=== PATIENT | male | born 1940 | race Caucasian/White ===

== ENCOUNTER 2016-07-25 20:15 | Inpatient (IN) ==
[2016-07-25] MEDS ORDERED: ONDANSETRON 4 MG/2 ML VIAL IV STA (21:35)
[2016-07-25] MEDS ORDERED: SODIUM CHLORIDE 0.9% 500 ML IV STA (21:35)
[2016-07-25] MEDS ORDERED: MORPHINE 2 MG/1 ML SYRINGE IV STA (21:35)
[2016-07-25 21:56] LABS: Basophils % 0.1 % (0.0-0.8); Eosinophils # 0.1 10*3/uL (0.0-0.87); Eosinophils % 0.7 % (0.00-10.9); Hematocrit 25.8 VOL% (42.0-52.0); Hemoglobin 8.4 GM/DL (14.0-18.0); Immature Granulocytes % 0.5 %; Immature Granulocytes Absolute 0.04 #; Lymphocytes # 0.7 10*3/uL (1.4-4.0); Lymphocytes % 9.8 % (21.2-54.2); Mean Corpuscular HGB Conc 32.6 GM/DL (32-36); Mean Corpuscular Hemoglobin 30 PG (27-34); Mean Corpuscular Volume 91.2 FL (87-102); Mean Platelet Volume 9.4 FL (9.6-12.0); Monocytes # 0.8 10*3/uL (0.11-0.8); Monocytes % 11.1 % (1.7-12.7); Neutrophils # 5.7 10*3/uL (1.4-7.4); Neutrophils % 77.8 % (38.7-73.9); Platelet Count 234 T/CUMM (130-400); Red Blood Count 2.83 MC/CUMM (3.8-5.5); Red Cell Distribution Width 13.8 % (9.3-17.3); White Blood Count 7.3 T/CUMM (4-12)
--- NOTE | 2016-07-25 22:00 | Emergency Department Note ---
Vern Salas Brittany, am scribing for, and in the presence of, Eladio Richardson MD 21:42. Dylan Salas Robert M, MD, personally performed the services described in this documentation, ascribed by Tressa Porras in my presence, and it is both accurate and complete . Arrival - Arrival Chief Complaint: Urogenital - Male Stated Complaint: passing blot cots in urine/fell on thursday/ ED Nursing Triage Note: Pt to triage via wheelchair with c/o passing blood colts around noon today. Pt states he had urogential surgery yesterday with Dr. Herrera and had a stent placed. Painful urination, and nausea. Mode of Arrival: Wheelchair Limitations: No Limitations Source: Patient, Significant other, RN Notes Reviewed Time Seen by Provider: 07/25/16 21:34 - History of Present Illness HPI Narrative: Patient is a 75 y/o white male presenting to the ED accompanied by his with c/o hematuria with an onset of noon today. Patient reports that he recent had a right renal stent placement per Dr. Herrera and was discharged yesterday. Since noon today he states he has been having some oliguria, but upon being able to have some urine output he passes large blood clots. Patient notes that he did have a fall last night and is concerned he may have dislodged the stent. Patient reports that he had stent placement secondary to mass occluding passage of urine from the right kidney. reports that he has had a sphincter placement as well and states this has not been working properly either. She notes that he can have hardwick catheter placement, he will just have to deactivate the sphincter first. Patient has no other complaint/pain. Allergies/Adverse Reactions: Allergies Allergy/AdvReac Type Severity Reaction Status Date / Time Penicillins Allergy Unknown Unknown/Unable Verified 07/22/16 12:04 to obtain Tetanus Vaccines and Toxoid Allergy Unknown Unknown/Unable Verified 07/22/16 12: 04 [Tetanus Vaccines & Toxoid] to obtain Home Medications: Home Medications Medication Instructions Recorded Confirmed Type Aspirin [Ecotrin] 81 mg PO QAM 12/28/14 07/25/16 History Glimepiride 4 mg PO BID W/MEALS 12/28/14 07/25/16 History Leuprolide IM (4 Month) [Lupron 30 mg IM ONCE 12/28/14 07/25/16 History Depot (4 Month)] Megestrol Acetate 20 mg PO DAILY 12/28/14 07/25/16 History Omeprazole 20 mg PO DAILY PRN 12/28/14 07/25/16 History Pioglitazone [Actos] 15 mg PO DAILY 12/28/14 07/25/16 History Topiramate 100 mg PO BID 12/28/14 07/25/16 History metFORMIN [Glucophage] 1,000 mg PO BID W/MEALS 12/28/14 07/25/16 History Cyclobenzaprine [Flexeril] 10 mg PO TID #14 tablet 01/29/16 07/25/16 Rx Diphenoxylate/Atrop 2.5-0.025 1 tablet PO Q6H PRN 01/29/16 07/25/16 History [Lomotil Tab] Enzalutamide [Xtandi] 160 mg PO DAILY 01/29/16 07/25/16 History Multivitamin [Multivitamins] 1 each PO DAILY 01/29/16 07/25/16 History Solifenacin [Vesicare] 5 mg PO DAILY 01/29/16 07/25/16 History Calcium Carbonate [Calcium] 1 tablet PO DAILY 07/22/16 07/25/16 History HYDROcodone/ACETAMIN 7.5-325 1 tablet PO Q6H PRN 07/22/16 07/25/16 History [Gravity 7.5-325] [place]-3 Fatty Acids [Fish Oil] 1 tablet PO DAILY 07/22/16 07/25/16 History Review of System - Review of System 12 point system: reviewed and no additional remarkable complaints except as stated - Review of System Respiratory: Absent: respiratory distress Cardiovascular: Absent: chest pain Gastrointestinal: Absent: abdominal pain, nausea, vomiting, diarrhea, constipation Genitourinary male: Present: as per HPI, hematuria Musculoskeletal: Absent: arm pain, back pain, leg pain, neck pain Skin: Absent: rash Medical,Surgical,& Family Hx - Medical History Psychological: History of: Depression Neurology: History of: Migraine (OCCASIONALLY) No history of: Seizures HEENT: History of: Ear Problem (NUSRAT HEARING AIDS), Eye Problem (GLASSES) Respiratory: No history of: Respiratory Problems (FLU VAC-NO;PNEU VAC- YES. 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 DR LOWERY. 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 NUSRAT CARPAL TUNNEL), Spinal Surgery (NECK SURGERY 2002) - Social History Smoking Status: Never smoker Frequency of Alcohol Use: None Type of Drug Use: None Exam Vital Signs: Vital Signs Temperature 97.6 F 07/25/16 21:29 Pulse Rate 81 07/25/16 21:29 Respiratory Rate 18 07/25/16 21:29 Blood Pressure 110/50 07/25/16 21:29 O2 Sat by Pulse Oximetry 98 07/25/16 20:26 - General General appearance: alert, in no apparent distress - Head Head exam: Present: atraumatic, normocephalic, normal inspection - Eye Eye exam: Present: normal appearance, PERRL, EOMI - ENT ENT exam: Present: normal exam, normal oropharynx - Neck Neck exam: Present: normal inspection, full ROM, trachea midline - Chest Chest inspection: Present: normal inspection, symmetric chest wall rise - Respiratory Respiratory exam: Present: normal lung sounds bilaterally. Absent: rales, rhonchi, wheezes - Cardiovascular Cardiovascular exam: Present: regular rate, normal rhythm, normal heart sounds. Absent: murmur, rubs, gallop - Abdominal Exam Abdominal exam: Present: soft, normal bowel sounds. Absent: distention, tenderness - Extremities Exam Extremities exam: Present: normal inspection - Back Exam Back exam: Present: normal inspection (right CVA puncture is clean ) - Neurological Exam Neurological exam: Present: alert, oriented X3, CN II-XII intact. Absent: motor sensory deficit - Psychiatric Psychiatric exam: Present: normal affect, normal mood - Skin Skin exam: Present: warm, dry, intact, pallor. Absent: normal color Course - Reevaluation(s) Reevaluation #1: Manually deactivate the patient's urethral polyp so that we could place a Hardwick. The Hardwick past through the pump with little to no resistance. Bloody urine was returned. Clots were noted in the catheter. Time: 22:20 - Consultations Consultation #1: The hospitalist has been paged. Time: 23:22 Results - Labs CBC & BMP: 07/25/16 21:40 07/25/16 21:40 Lab Results: I have reviewed the patients labs Labs: Lab Results WBC 7.3 T/CUMM (4-12) 07/25/16 21:40 RBC 2.83 MC/CUMM (3.8-5.5) L 07/25/16 21:40 Hgb 8.4 GM/DL (14.0-18.0) L 07/25/16 21:40 Hct 25.8 VOL% (42.0-52.0) L 07/25/16 21:40 MCV 91.2 FL (87-102) 07/25/16 21:40 MCH 30 PG (27-34) 07/25/16 21:40 MCHC 32.6 GM/DL (32-36) 07/25/16 21:40 RDW 13.8 % (9.3-17.3) 07/25/16 21:40 Plt Count 234 T/CUMM (130-400) 07/25/16 21:40 MPV 9.4 FL (9.6-12.0) L 07/25/16 21:40 Neut % (Auto) 77.8 % (38.7-73.9) H 07/25/16 21:40 Lymph % (Auto) 9.8 % (21.2-54.2) L 07/25/16 21:40 [place] % (Auto) 11.1 % (1.7-12.7) 07/25/16 21:40 Eos % (Auto) 0.7 % (0.00-10.9) 07/25/16 21:40 Baso % (Auto) 0.1 % (0.0-0.8) 07/25/16 21:40 Neut # (Auto) 5.7 10*3/uL (1.4-7.4) 07/25/16 21:40 Lymph # (Auto) 0.7 10*3/uL (1.4-4.0) L 07/25/16 21:40 [place] # (Auto) 0.8 10*3/uL (0.11-0.8) 07/25/16 21:40 Eos # (Auto) 0.1 10*3/uL (0.0-0.87) 07/25/16 21:40 Baso # (Auto) 0.0 10*3/uL (0.0-0.2) 07/25/16 21:40 Immature Gran % 0.5 % 07/25/16 21:40 Nucleated RBC % 0.0 /100WBC 07/25/16 21:40 Immature Gran # 0.04 # 07/25/16 21:40 Nucleated RBCs # 0.00 10*3/uL 07/25/16 21:40 Sodium 134 MMOL/L (136-145) L 07/25/16 21:40 Potassium 3.9 MMOL/L (3.5-5.1) 07/25/16 21:40 Chloride 101 MMOL/L (98-107) 07/25/16 21:40 Carbon Dioxide 21 MMOL/L (21-32) 07/25/16 21:40 Anion Gap 15.9 MMOL/L (5.0-15.0) H 07/25/16 21:40 BUN 33 MG/DL (7-18) H 07/25/16 21:40 Creatinine 1.80 MG/DL (0.70-1.30) H 07/25/16 21:40 GFR Calculation 38 ML/MIN 07/25/16 21:40 BUN/Creatinine Ratio 18.00 RATIO (6.00-20.00) 07/25/16 21:40 Glucose 215 MG/DL (74-106) H 07/25/16 21:40 Calculated Osmolality 280.2 MOS/KG (273-304) 07/25/16 21:40 Calcium 8.5 MG/DL (8.5-10.1) 07/25/16 21:40 Magnesium 2.0 MG/DL (1.8-2.4) 07/25/16 21:40 Urine Color Red (Yellow) 07/25/16 21:40 Urine Appearance Turbid (Clear) 07/25/16 21:40 Urine pH 7.0 (4.5-8.0) 07/25/16 21:40 Ur Specific [place] 1.005 (1.001-1.035) 07/25/16 21:40 Urine Protein >=500 MG/DL 07/25/16 21:40 Urine Glucose (UA) Negative mg/dL (Negative) 07/25/16 21:40 Urine Ketones Negative mg/dL (Negative) 07/25/16 21:40 Urine Blood 1+ mg/dL (Negative) 07/25/16 21:40 Urine Nitrate Negative (Negative) 07/25/16 21:40 Urine Bilirubin Negative mg/dL (Negative) 07/25/16 21:40 Urine Urobilinogen < 2.0 EU/DL (0.2-1.0) H 07/25/16 21:40 Urine Leukocytes 25 Jimmy/ul (Negative) 07/25/16 21:40 Ur Culture Indicated? Results to follow 07/25/16 21:40 - Diagnostic Findings Procedure: CT Abdomen and Pelvis: image reviewed by me (Retroperitoneal hemorrhage with hydronephrosis and clot filling the collecting system of the right kidney. The stent may have migrated distally.) Disposition Clinical Impression: Right retroperitoneal hemorrhage, History of prostate cancer, Recent internal stent placement Case discussed with: patient, patient's family Disposition: Still a Patient Condition: Stable Time of Disposition: 23:20
[2016-07-25 22:02] LABS: Apearance,Urine Turbid (Clear); Glucose,Urine (UA) Negative (Negative); Ketones,Urine Negative (Negative); Protein,Urine >=500 MG/DL; Urine Specific Gravity 1.005 (1.001-1.035)
[2016-07-25 22:03] LABS: Bilirubin,Urine Negative (Negative); Blood, Urine 1+ mg/dL (Negative); Nitrite,Urine Negative (Negative)
[2016-07-25 22:04] LABS: Urine Urobilinogen < 2.0 EU/DL (0.2-1.0)
[2016-07-25 22:05] LABS: Urine Color Red (Yellow)
[2016-07-25 22:21] LABS: Calcium 8.5 MG/DL (8.5-10.1); Osmolality,Calculated 280.2 MOS/KG (273-304); Potassium 3.9 MMOL/L (3.5-5.1)
[2016-07-26] MEDS ORDERED: MORPHINE 2 MG/1 ML SYRINGE ONE (00:50)
[2016-07-26] MEDS ORDERED: ONDANSETRON 4 MG/2 ML VIAL ONE (00:50)
[2016-07-26] MEDS ORDERED: MORPHINE 2 MG/1 ML SYRINGE IV STA (00:59)
[2016-07-26] MEDS ORDERED: PANTOPRAZOLE 40 MG TABLET PO PRN (01:59)
[2016-07-26] MEDS ORDERED: GLUCAGON 1 MG VIAL IM PRN (01:59)
[2016-07-26] MEDS ORDERED: DEXTROSE 50% 25 GM/50 ML VIAL IV PRN (01:59)
[2016-07-26 02:27] LABS: Basophils % 0.2 % (0.0-0.8); Eosinophils # 0.1 10*3/uL (0.0-0.87); Eosinophils % 1.7 % (0.00-10.9); Hematocrit 22.3 VOL% (42.0-52.0); Hemoglobin 7.2 GM/DL (14.0-18.0); Immature Granulocytes % 0.5 %; Immature Granulocytes Absolute 0.02 #; Lymphocytes # 0.8 10*3/uL (1.4-4.0); Lymphocytes % 18.1 % (21.2-54.2); Mean Corpuscular HGB Conc 32.3 GM/DL (32-36); Mean Corpuscular Hemoglobin 30 PG (27-34); Mean Corpuscular Volume 91.4 FL (87-102); Monocytes # 0.5 10*3/uL (0.11-0.8); Monocytes % 12.4 % (1.7-12.7); Neutrophils # 2.8 10*3/uL (1.4-7.4); Neutrophils % 67.1 % (38.7-73.9); Platelet Count 194 T/CUMM (130-400); Red Blood Count 2.44 MC/CUMM (3.8-5.5); Red Cell Distribution Width 13.7 % (9.3-17.3); White Blood Count 4.2 T/CUMM (4-12)
[2016-07-26 02:37] LABS: Partial Thromboplastin Time 35.6 SECS (0-40)
[2016-07-26] MEDS: SODIUM CHLORIDE 0.9% 1,000 ML IV SCH ×2 (02:39→20:26)
--- NOTE | 2016-07-26 03:56 | Hospitalist History & Physical ---
Assessment and Plan (1) Hemorrhage Status: Acute Assessment and plan: Massive hematuria after placement of urinary stent Hold aspirin Type and screen, monitor hemoglobin - is already dropped by 2 IV fluids, monitor for orthostasis Had some clotting in the bladder that caused some retention but now has been relieved after Segundo catheter placement Monitor urine output closely, may need continuous bladder irrigation Consult Dr. Herrera Current Visit: Yes (2) Hematuria Status: Acute Current Visit: Yes (3) CKD (chronic kidney disease) stage 3, GFR 30-59 ml/min Status: Chronic Current Visit: Yes (4) SHARI (acute kidney injury) Status: Acute Assessment and plan: Renal function a bit worse than baseline likely secondary to the above IV fluids and monitor Current Visit: Yes (5) Diabetes mellitus Status: Acute Assessment and plan: Hold oral hypoglycemics Serial fingerstick glucose, sliding scale lispro insulin Current Visit: Yes Qualifiers: Diabetes mellitus type: type 2 Diabetes mellitus complication status: with hyperglycemia Diabetes mellitus half-way insulin use: without buttermaker use Qualified Code(s): E11.65 - Type 2 diabetes mellitus with hyperglycemia (6) Hydronephrosis of right kidney Status: Chronic Assessment and plan: Chronic, secondary to metastatic prostate cancer, recently had stent placement to relieve obstruction Current Visit: No (7) History of prostate cancer Status: Chronic Assessment and plan: History for several years, currently on Lupron and enzalutamide, per Dr. Aldana Current Visit: Yes History of Present Illness Chief complaint: Hematuria History of present illness: Mr. Fields is a 75 year old male with medical history that includes CKD stage III, hypertension, diabetes, GERD, and prostate cancer currently under the care of Dr. Mustafa. He presented with a chief complaint of hematuria. He had a urological procedure [address] Herrera. He had an external to internalization of a right ureteral stent to bypass an obstructing tumor causing right hydronephrosis. He has had a long history of prostate cancer and is being treated with Lupron and enzalutamide. Also of note he has a prosthetic urethral valve that must be deactivated prior to Segundo placement. The onset of the patient's hematuria was abrupt after the procedure. He felt like it was rather heavy but it increased even more after a fall yesterday. The mechanism of the fall was slipping on a wet floor. The quality of the hematuria is dark red blood. No relieving factors noted. The patient also complained of feelings of urinary retention that were relieved by placement of a Segundo catheter in the emergency department. He denied orthostatic symptoms. I have reviewed the workup done in the emergency department including labs and imaging data. I have discussed his case with emergency department providers. Home Medications Medication Instructions Recorded Confirmed Type Aspirin [Ecotrin] 81 mg PO QAM 12/28/14 07/25/16 History Glimepiride 4 mg PO BID W/MEALS 12/28/14 07/25/16 History Leuprolide IM (4 Month) [Lupron 30 mg IM ONCE 12/28/14 07/25/16 History Depot (4 Month)] Megestrol Acetate 20 mg PO DAILY 12/28/14 07/25/16 History Omeprazole 20 mg PO DAILY PRN 12/28/14 07/25/16 History Pioglitazone [Actos] 15 mg PO DAILY 12/28/14 07/25/16 History Topiramate 100 mg PO BID 12/28/14 07/25/16 History metFORMIN [Glucophage] 1,000 mg PO BID W/MEALS 12/28/14 07/25/16 History Cyclobenzaprine [Flexeril] 10 mg PO TID #14 tablet 01/29/16 07/25/16 Rx Diphenoxylate/Atrop 2.5-0.025 1 tablet PO Q6H PRN 01/29/16 07/25/16 History [Lomotil Tab] Enzalutamide [Xtandi] 160 mg PO DAILY 01/29/16 07/25/16 History Multivitamin [Multivitamins] 1 each PO DAILY 01/29/16 07/25/16 History Solifenacin [Vesicare] 5 mg PO DAILY 01/29/16 07/25/16 History Calcium Carbonate [Calcium] 1 tablet PO DAILY 07/22/16 07/25/16 History HYDROcodone/ACETAMIN 7.5-325 1 tablet PO Q6H PRN 07/22/16 07/25/16 History [[place] 7.5-325] [place]-3 Fatty Acids [Fish Oil] 1 tablet PO DAILY 07/22/16 07/25/16 History Allergies Allergy/AdvReac Type Severity Reaction Status Date / Time Penicillins Allergy Unknown Unknown/Unable Verified 07/22/16 12:04 to obtain Tetanus Vaccines and Toxoid Allergy Unknown Unknown/Unable Verified 07/22/16 12: 04 [Tetanus Vaccines & Toxoid] to obtain Medical,Surgical,& Family Hx - Medical History Psychological: History of: Depression Neurology: History of: Migraine (OCCASIONALLY) No history of: Seizures HEENT: History of: Ear Problem (NUSRAT HEARING AIDS), Eye Problem (GLASSES) Endocrine: History of: Diabetes Mellitus (NIDDM) Respiratory: No history of: Respiratory Problems (FLU VAC-NO;PNEU VAC- YES. 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 DR LOWERY. 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 NUSRAT CARPAL TUNNEL), Spinal Surgery (NECK SURGERY 2002) - Family History Family History: Reports;: Family Heart Disease, Family Hypertension - Social History Smoking Status: Never smoker Frequency of Alcohol Use: None Type of Drug Use: None Marital Status: Lives With:: Spouse Functional capacity: independent ambulation Review of systems: - Constitutional Constitutional: Absent: chills, fatigue, fever(s), night sweats, weight loss - EENT Eyes: Absent: blurry vision Ears: Present: Decreased hearing absent: Ear pain Nose, mouth and throat: Absent: nasal congestion, sore throat - Cardiovascular Cardiovascular: Absent: chest pain at rest, chest pain with activity, dyspnea on exertion, edema, orthopnea, palpitations - Respiratory Respiratory: Absent: cough, dyspnea, hemoptysis - Gastrointestinal Gastrointestinal: Absent: abdominal pain, constipation, diarrhea, dysphagia, hematemesis, hematochezia, melena, nausea, vomiting - Genitourinary Genitourinary: Present: difficulty urinating, dysuria, hematuria - Musculoskeletal Musculoskeletal: Absent: arthralgias, joint swelling, myalgias - Neurological Neurological: Absent: confusion, dizziness, focal weakness, headache(s), numbness, paresthesias, syncope - Psychiatric Psychiatric: Absent: anxiety, depression - Endocrine Endocrine: Absent: cold intolerance, heat intolerance, polydipsia, polyuria - Hematologic/Lymphatic Hematologic/Lymphatic: Absent: easy bleeding, easy bruising, lymphadenopathy Exam - Constitutional Vitals: Period Temp Pulse Resp BP Sys/Cordero Pulse Ox Last 24 Hr 97.2 F 71-78 16-18 116-132/65-68 100-100 General appearance: other (Elderly white male lying on stretcher pleasant and cooperative) Exam: - Eye Eye exam: Present: EOMI. Absent: conjunctival injection, scleral icterus Pupils: Present: FINA - ENT ENT exam: Present: normal external ear exam, normal oropharynx - Expanded ENT Exam Mouth exam: Present: moist - Neck Neck exam: Present: normal inspection. Absent: lymphadenopathy, thyromegaly - Respiratory Respiratory exam: Present: clear to auscultation bilaterally. Absent: accessory muscle use, rales, rhonchi, wheezes - Cardiovascular Cardiovascular exam: Present: regular rate and rhythm. Absent: diastolic murmur , systolic murmur - Expanded Cardiovascular Exam Peripheral pulses: 2+: posterior tibialis (L), posterior tibialis (R) - GI/Abdominal GI/Abdominal exam: Present: normal bowel sounds, soft, dressing over right flank clean dry and intact. Absent: distended, hyperactive bowel sounds, hypoactive bowel sounds, organomegaly, tenderness, rebound - exam: Present: Palpable prosthetic urethral valve control in scrotum, Segundo with dark hematuria - Extremities Exam Extremities exam: Absent: edema - Neurological Exam Neurological exam: Present: alert, oriented X3, CN II-XII intact. Absent: motor sensory deficit - Psychiatric Psychiatric exam: Present: normal affect - Skin Skin exam: Present: warm, dry. Absent: diaphoretic, rash Results - Labs CBC & BMP: 07/26/16 02:17 07/25/16 21:40 - Diagnostic Findings Procedure: CT Abdomen and Pelvis: report reviewed by me Quality Measures - VTE Contraindication to Pharmacological VTE Prophylaxis: Active Bleeding
[2016-07-26] MEDS: INSULIN LISPRO 100 UNIT/ML SUBCUT SCH ×3 (06:28→17:03)
--- NOTE | 2016-07-26 07:07 | CT Report ---
Referring physician: Eladio Richardson EXAM: CT abdomen and pelvis without contrast DATE: July 25, 2016 COMPARISON: CT abdomen and pelvis November 27, 2015 REASON: Right lower quadrant abdominal pain, gross hematuria, status post ureteral stent for 1 day, history of prostate cancer Preliminary report was provided by [facility] [[email or web address]]. TECHNIQUE: Axial images of the abdomen and pelvis were obtained without the use of contrast. Coronal and sagittal reformatted images were also provided. Total DLP is 456.3 mGy*cm. FINDINGS: Lower thorax: There is minimal bibasilar atelectasis and/or scarring. There is also a small hiatal hernia. ABDOMEN: Liver: Unremarkable. Gallbladder and bile ducts: The gallbladder is unremarkable. No biliary duct dilatation is present. Pancreas: Unremarkable. Spleen: Unremarkable. Adrenals: Unremarkable. Kidneys and ureters: There has been placement of a right ureteral stent, and the proximal aspect of the stent is located within the proximal/mid right ureter at the L3-L4 level. The distal tip of the stent is located within the bladder. There is moderate right hydronephrosis and dilatation of the right ureter. Minimal air is seen within the right renal pelvis and is likely related to recent placement of the stent. There is also high density material within the right renal pelvis and calyces as well as within the right ureter. This suggests hemorrhage. Again, an obstructing process is not excluded at the right UVJ. There is mild high density right perinephric fluid, which likely represents hemorrhage. It measures approximately 7.8 x 6.5 x 1.7 cm. No left hydronephrosis is present, and no renal or ureteral stones are seen. There is a 2.1 cm exophytic lesion at the medial aspect of the upper pole of the right kidney. It measures slightly larger in size today and is difficult to confirm as a cyst. Correlation with ultrasound is recommended. PELVIS: Bladder: The bladder contains mild air, which is likely related to a recent procedure. There is also high density material within the bladder, which is concerning for blood products. A Segundo catheter is in place. Evaluation for a bladder lesion is limited. Reproductive: The patient has a history of prostate cancer. The prostate is not well visualized, which could be related to prior therapy. A penile pump is in place. ABDOMEN AND PELVIS: Bowel: There is no evidence of bowel obstruction, and no definite bowel inflammation is seen. There are several colonic diverticula but no evidence of diverticulitis. Appendix: The appendix is not identified, but there are no secondary signs of appendicitis. Vasculature: The abdominal aorta is normal in size. There is [id number] scattered calcified plaque at the arteries. Peritoneum: There is no evidence of pneumoperitoneum. There is persistent mild fat stranding within the pelvis and along the inguinal chains, which could be related to prior therapy. Lymph nodes: There are multiple enlarged aortocaval lymph nodes. There are also multiple enlarged lymph nodes along the iliac chains and in the inguinal regions, right greater than left. These lymph nodes have increased in size and number and are concerning for metastatic disease. A previously measured aortocaval lymph node on image 51 measures 1.6 cm in short axis diameter compared to 2.3 cm in diameter on the prior study. However, these lymph nodes have overall increased in size. The previously measured right inguinal lymph node measures 2.0 cm in short axis diameter on image 134 compared to 1.8 cm on the prior study. Abdominal/pelvic wall: Subcutaneous fat stranding is seen at the anterior pelvic wall. This could be related to a recent procedure or edema. There is also a minimal fat-containing umbilical hernia. Bones: There is multilevel degenerative change at the lumbar spine as before. A stable sclerotic focus is again seen within the right ilium on image 100. Its stability favors a benign process. IMPRESSION: 1. There has been interval placement of a right ureteral stent. The proximal aspect of the stent is located within the proximal/mid right ureter at the L3-L4 level. There is also moderate right hydronephrosis and dilatation of the right ureter. High density material is seen within the right renal pelvis and ureter and is suggestive of blood products. There is also mild high density right perinephric fluid, which is most consistent with mild perinephric hemorrhage. An obstructing process is again not excluded at the right UVJ. 2. There are enlarged aortocaval lymph nodes. There are also enlarged lymph nodes along the iliac chains and in the inguinal regions, right greater than left. These lymph nodes have overall increased in size and number since November 27, 2015. This is concerning for metastatic adenopathy. 3. There is a 2 cm exophytic lesion at the medial aspect of the upper pole of the right kidney. It measures higher density than typically seen for a cyst and has slightly increased in size. This may represent a hemorrhagic/proteinaceous cyst, but a solid renal lesion cannot be excluded. Correlation with ultrasound is recommended. 4. Small hiatal hernia. 5. Colonic diverticulosis without evidence of diverticulitis. The CT exam was performed using one or more of the following dose reduction techniques: Automated exposure control and adjustment of the mA and/or kV according to patient size. PROCEDURE INTERPRETED AT [facility] DEPARTMENT OF RADIOLOGY Final Report Signed by: Dr. Travis Saleh
[2016-07-26] MEDS: SOLIFENACIN 5 MG TABLET PO SCH ×2 (07:40→08:36)
[2016-07-26] MEDS ORDERED: SODIUM CHLORIDE 0.9% 250 ML IV PRN (07:45)
[2016-07-26] MEDS: TOPIRAMATE 100 MG TABLET PO SCH ×2 (08:36→20:25)
[2016-07-26] MEDS ORDERED: NON-FORMULARY MEDICATION (Enzalutamide [Xtandi] 160 MG) PO SCH (09:00)
[2016-07-26 09:25] LABS: Alanine Aminotransferase < 9 U/L (16-61); Albumin 2.3 G/DL (3.4-5.0); Alkaline Phosphatase 51 U/L (45-117); Aspartate Amino Transferase 11 U/L (0-37); Blood Urea Nitrogen 24 MG/DL (7-18); Calcium 8.1 MG/DL (8.5-10.1); Glucose 93 MG/DL (74-106); Osmolality,Calculated 286.1 MOS/KG (273-304); Potassium 4.1 MMOL/L (3.5-5.1); Sodium 142 MMOL/L (136-145); Total Protein 5.5 G/DL (6.4-8.3)
--- NOTE | 2016-07-26 09:26 | Urology Consultation ---
Assessment and Plan - Time spent with patient Time spent with patient: Greater than 30 minutes Time spent discussing smoking cessation with patient: more than 10 minutes (1) Hematuria Status: Acute Assessment and plan: I agree with holding the patient's aspirin. The gross hematuria is most likely coming from the recent placement of antegrade right ureteral stent. There is some blood clot noted within the right collecting system and proximal right ureter. I recommend blood products as needed for symptomatology and anemia. We 'll continue to follow. Current Visit: Yes (2) History of prostate cancer Status: Chronic Assessment and plan: The patient is known to have metastatic advanced prostate cancer. I would recommend checking a PSA while he is in-house. Otherwise continue Lupron and enzalutamide on a nonemergent basis. Current Visit: Yes (3) Hydronephrosis of right kidney Status: Chronic Assessment and plan: I think ultimately the patient would benefit from replacement of his right ureteral stent either antegrade or retrograde where the curl would be located in the right collecting system as well as distally in the bladder. I would like for him to be off aspirin for a few more days before this happens so that the gross hematuria is not exacerbated. We'll continue to follow. Current Visit: No (4) Acute urinary retention Status: Acute Assessment and plan: I recommended removing the Segundo catheter completely. The majority of the hematuria is coming from the right kidney. And on CT scan the bladder itself was empty otherwise. Reactivated then more aggressively deactivated the patient 's sphincter and placed this in the locked position. I think at this point his best result will come from incontinence to an adult diaper in the setting of gross hematuria and I anticipate that he will be able to continue to empty his bladder this way. The other option is a larger Segundo catheter with irrigation of clots and possibly continuous bladder irrigation. I don't want to pursue this unless we have to as there would be concern for erosion in the area of his artificial urinary sphincter. I will continue to follow along closely while in house and adjust plan accordingly. Current Visit: Yes History of Present Illness - Data of Consult Patient: known to practice within the last 3 years Consult date: 07/26/16 Requesting Physician: Trae Reeves - Consult Narrative Reason for consult: gross hematuria, urinary retention, prostate cancer advanced metastatic History of present illness: Mr. Fields is a 75 year old male Who is known to this practice specifically Dr. Mustafa for prostate cancer. This was diagnosed in 2006 he has since had metastatic disease and is currently on androgen deprivation therapy with Lupron and enzalutamide. He had a right ureteral stent placed antegrade by interventional radiology 3 days ago. This was placed due to the right hydronephrosis secondary to advanced metastatic prostate cancer. He then subsequently fell at home within the 2436 hours afterwards and has had gross hematuria since the procedure this got worse after the fall. He presented to the hospital for further evaluation and definitive care. In initial evaluation he had a Segundo catheter placed. It should be noted that he has an artificial urinary sphincter and this was deactivated. He then had urinary retention in the setting of gross hematuria with clots while having the 18 [place] Segundo catheter in place therefore I was consulted for further definitive care. Interventional radiology was also consulted and is following along. He is on aspirin at home but this is currently being held starting today. Nothing seems to make the hematuria better, the recent fall made hematuria or worse. He does have some fatigue otherwise no other associated symptoms. He has right flank pain that is dull and persistent. CC: Trae Juan MD - Home Medications and Allergies Home Medications: Home Medications Medication Instructions Recorded Confirmed Type Aspirin [Ecotrin] 81 mg PO QAM 12/28/14 07/25/16 History Glimepiride 4 mg PO BID W/MEALS 12/28/14 07/25/16 History Leuprolide IM (4 Month) [Lupron 30 mg IM ONCE 12/28/14 07/25/16 History [place] (4 Month)] Megestrol Acetate 20 mg PO DAILY 12/28/14 07/25/16 History Omeprazole 20 mg PO DAILY PRN 12/28/14 07/25/16 History Pioglitazone [Actos] 15 mg PO DAILY 12/28/14 07/25/16 History Topiramate 100 mg PO BID 12/28/14 07/25/16 History metFORMIN [Glucophage] 1,000 mg PO BID W/MEALS 12/28/14 07/25/16 History Cyclobenzaprine [Flexeril] 10 mg PO TID #14 tablet 01/29/16 07/25/16 Rx Diphenoxylate/Atrop 2.5-0.025 1 tablet PO Q6H PRN 01/29/16 07/25/16 History [Lomotil Tab] Enzalutamide [Xtandi] 160 mg PO DAILY 01/29/16 07/25/16 History Multivitamin [Multivitamins] 1 each PO DAILY 01/29/16 07/25/16 History Solifenacin [Vesicare] 5 mg PO DAILY 01/29/16 07/25/16 History Calcium Carbonate [Calcium] 1 tablet PO DAILY 07/22/16 07/25/16 History HYDROcodone/ACETAMIN 7.5-325 1 tablet PO Q6H PRN 07/22/16 07/25/16 History [[place] 7.5-325] [place]-3 Fatty Acids [Fish Oil] 1 tablet PO DAILY 07/22/16 07/25/16 History Allergies/Adverse Reactions: Allergies Allergy/AdvReac Type Severity Reaction Status Date / Time Penicillins Allergy Unknown Unknown/Unable Verified 07/22/16 12:04 to obtain Tetanus Vaccines and Toxoid Allergy Unknown Unknown/Unable Verified 07/22/16 12: 04 [Tetanus Vaccines & Toxoid] to obtain 12 point system: reviewed and no additional remarkable complaints except as stated (fatigue) - Constitutional Constitutional: Present: as per HPI, lethargy - EENT Eyes: Present: as per HPI Ears: Present: as per HPI Nose, mouth and throat: Present: as per HPI - Cardiovascular Cardiovascular: Present: as per HPI - Respiratory Respiratory: Present: as per HPI - Gastrointestinal Gastrointestinal: Present: as per HPI, abdominal pain - Genitourinary Genitourinary: Present: as per HPI, difficulty urinating, hematuria, urinary incontinence - Musculoskeletal Musculoskeletal: Present: as per HPI - Neurological Neurological: Present: as per HPI - Psychiatric Psychiatric: Present: as per HPI - Endocrine Endocrine: Present: as per HPI, fatigue Exam - Constitutional Vitals: Period Temp Pulse Resp BP Sys/Cordero Pulse Ox Last 24 Hr 97.2 F-97.7 F 70-78 16-18 116-132/54-68 96-100 General appearance: normal weight, no acute distress - Head Head exam: Present: normal inspection, normocephalic - Eye Eye exam: Present: EOMI Pupils: Present: FINA - ENT ENT exam: Present: normal exam - Neck Neck exam: Present: normal inspection - Respiratory Respiratory exam: Present: clear to auscultation bilaterally - Cardiovascular Cardiovascular exam: Present: regular rate and rhythm - GI/Abdominal GI/Abdominal exam: Present: normal bowel sounds, soft - Genitourinary Genitourinary: scrotum without lesions, cysts, edema or rash, penis with no lesions or discharge (artificial urinary sphincter in place currently deactivated.) - Extremities Exam Extremities exam: Present: normal inspection, full ROM - Back Exam Back exam: Present: normal inspection - Neurological Exam Neurological exam: Present: alert, oriented X3, normal gait - Psychiatric Psychiatric exam: Present: normal affect, normal mood - Skin Skin exam: Present: normal color Results - Labs CBC & BMP: 07/26/16 02:17 07/25/16 21:40 - Diagnostic Findings Procedure: CT Abdomen and Pelvis: report reviewed by me (I reviewed and interpreted the CT notable most specifically for continued advanced metastatic prostate cancer with lymphadenopathy. Also, right hydronephrosis and what appears to be blood clot within the right collecting system and proximal right ureter. The right ureteral stent has migrated into the proximal right ureter. On the CT scan there is a Segundo in place.)
--- NOTE | 2016-07-26 09:30 | Event Note ---
Patient seen and examined. Noted decrease in H/H noted at 7.2/22.3 from 8.4/ 25.8. Spoke with nursing staff; reports multiple attempts to irrigate hardwick catheter with no success and gradual decrease in UOP. Nursing staff reports no UOP since 0200 this morning. Will consult urology to see.
[2016-07-26 18:43] LABS: Hematocrit 26.8 VOL% (42.0-52.0); Hemoglobin 8.9 GM/DL (14.0-18.0)
[2016-07-26 21:28] LABS: Hematocrit 25.2 VOL% (42.0-52.0); Hemoglobin 8.6 GM/DL (14.0-18.0)
[2016-07-27] MEDS: INSULIN LISPRO 100 UNIT/ML SUBCUT SCH ×4 (00:05→18:05)
[2016-07-27 03:51] LABS: Alanine Aminotransferase < 9 U/L (16-61); Albumin 2.3 G/DL (3.4-5.0); Alkaline Phosphatase 46 U/L (45-117); Aspartate Amino Transferase 11 U/L (0-37); Blood Urea Nitrogen 23 MG/DL (7-18); Calcium 8.3 MG/DL (8.5-10.1); Glucose 113 MG/DL (74-106); Osmolality,Calculated 287.1 MOS/KG (273-304); Phosphorous 3.3 MG/DL (2.5-4.9); Potassium 4.1 MMOL/L (3.5-5.1); Sodium 142 MMOL/L (136-145); Total Protein 5.2 G/DL (6.4-8.3)
[2016-07-27 03:56] LABS: Basophils % 0.3 % (0.0-0.8); Eosinophils # 0.1 10*3/uL (0.0-0.87); Eosinophils % 2.3 % (0.00-10.9); Hematocrit 27.6 VOL% (42.0-52.0); Hemoglobin 9.1 GM/DL (14.0-18.0); Immature Granulocytes % 0.5 %; Immature Granulocytes Absolute 0.02 #; Lymphocytes # 0.8 10*3/uL (1.4-4.0); Lymphocytes % 19.8 % (21.2-54.2); Mean Corpuscular Hemoglobin 29 PG (27-34); Mean Corpuscular Volume 88.5 FL (87-102); Mean Platelet Volume 9.8 FL (9.6-12.0); Monocytes # 0.5 10*3/uL (0.11-0.8); Monocytes % 12.6 % (1.7-12.7); Neutrophils # 2.6 10*3/uL (1.4-7.4); Neutrophils % 64.5 % (38.7-73.9); Platelet Count 219 T/CUMM (130-400); Red Blood Count 3.12 MC/CUMM (3.8-5.5); Red Cell Distribution Width 13.8 % (9.3-17.3)
[2016-07-27] MEDS: SODIUM CHLORIDE 0.9% 1,000 ML IV SCH ×2 (06:44→16:45)
[2016-07-27 08:37] LABS: Hematocrit 28.1 VOL% (42.0-52.0); Hemoglobin 9.4 GM/DL (14.0-18.0)
[2016-07-27] MEDS: SOLIFENACIN 5 MG TABLET PO SCH (08:53)
[2016-07-27] MEDS: TOPIRAMATE 100 MG TABLET PO SCH ×2 (08:53→20:25)
--- NOTE | 2016-07-27 10:00 | Progress Note ---
Assessment and Plan - Time spent with patient Time spent with patient: Less than 30 minutes Time spent discussing smoking cessation with patient: 3 to 10 minutes (1) Hematuria Status: Acute Assessment and plan: Continue to hold the aspirin for now. The blood is coming from his right collecting system but I do not believe he is actively bleeding at this time. Current Visit: Yes (2) History of prostate cancer Status: Chronic Assessment and plan: The patient is known to have metastatic advanced prostate cancer. I would recommend checking a PSA while he is in-house. Otherwise continue Lupron and enzalutamide on a nonemergent basis. Current Visit: Yes (3) Hydronephrosis of right kidney Status: Chronic Assessment and plan: I think ultimately the patient would benefit from replacement of his right ureteral stent either antegrade or retrograde where the curl would be located in the right collecting system as well as distally in the bladder (right now the proximal ureteral curl was located in the proximal right ureter). I would like for him to continue to be off his aspirin for now. I will make and nothing by mouth after midnight. Dr. Herrera, interventional radiology, will be available starting tomorrow. Also, I will make Dr. Mustafa aware that the patient is currently in-house. Current Visit: No (4) Acute urinary retention Status: Acute Assessment and plan: I recommended removing the Segundo catheter completely. The majority of the hematuria is coming from the right kidney. And on CT scan the bladder itself was empty otherwise. Reactivated then more aggressively deactivated the patient 's sphincter and placed this in the locked position. I think at this point his best result will come from incontinence to an adult diaper in the setting of gross hematuria and I anticipate that he will be able to continue to empty his bladder this way. The other option is a larger Segundo catheter with irrigation of clots and possibly continuous bladder irrigation. I don't want to pursue this unless we have to as there would be concern for erosion in the area of his artificial urinary sphincter. I will continue to follow along closely while in house and adjust plan accordingly. Current Visit: Yes Family Medicine PN Sub Interval history: Over the last 24 hours the patient has had his aspirin stopped. He has voided on demand to an adult diaper and has had a post void residual checked and it was less than 50 mL. He still continues to have gross hematuria with clots. He is otherwise without complaint this morning. Also, he received 2 units packed red blood cells yesterday and his hemoglobin and hematocrit corrected appropriately. Exam (Progress Note) - Constitutional Vitals: Period Temp Pulse Resp BP Sys/Cordero Pulse Ox Last 24 Hr 96.9 F-98.4 F 60-87 14-20 110-143/45-76 95-100 General appearance: normal weight - Head Head exam: Present: normal inspection, normocephalic, atraumatic - Eye Eye exam: Present: EOMI Pupils: Present: FINA - ENT ENT exam: Present: normal exam - Neck Neck exam: Present: normal inspection - Respiratory Respiratory exam: Present: clear to auscultation bilaterally - Cardiovascular Cardiovascular exam: Present: regular rate and rhythm - GI/Abdominal GI/Abdominal exam: Present: normal bowel sounds, soft - Extremities Exam Extremities exam: Present: normal inspection, full ROM - Back Exam Back exam: Present: normal inspection - Neurological Exam Neurological exam: Present: alert, oriented X3 - Psychiatric Psychiatric exam: Present: normal affect, normal mood - Skin Skin exam: Present: normal color Results - Labs CBC & BMP: 07/27/16 08:14 07/27/16 02:11 Lab Results: I have reviewed the past 24 hour labs Quality Measures - VTE Contraindication to Pharmacological VTE Prophylaxis: Active Bleeding
--- NOTE | 2016-07-27 12:31 | Hospitalist Progress Note ---
Assessment and Plan - Time spent with patient Time spent with patient: Greater than 30 minutes (1) Hematuria Status: Acute Assessment and plan: Hematuria a/w acute blood loss anemia. Will defer tx plan to urology. Hb 9.4 this am. Will follow serially and transfuse as required Current Visit: Yes (2) Hydronephrosis of right kidney Status: Chronic Current Visit: No (3) CKD (chronic kidney disease) stage 3, GFR 30-59 ml/min Status: Chronic Current Visit: Yes (4) Diabetes mellitus Status: Acute Current Visit: Yes Qualifiers: Diabetes mellitus type: type 2 Diabetes mellitus complication status: with hyperglycemia Diabetes mellitus termite exterminator helper insulin use: without group home use Qualified Code(s): E11.65 - Type 2 diabetes mellitus with hyperglycemia Hospitalist: Subjective Interval history: No new prob or complaint. Segundo dc'd yesterday. Passing urine with some blood and clots Exam - Constitutional Vitals: Period Temp Pulse Resp BP Sys/Cordero Pulse Ox Last 24 Hr 96.9 F-98.4 F 60-87 14-20 116-143/45-76 95-98 General appearance: no acute distress - Head Head exam: Present: normal inspection, normocephalic - Eye Eye exam: Present: EOMI. Absent: conjunctival injection, scleral icterus Pupils: Present: FINA - ENT ENT exam: Present: normal exam - Neck Neck exam: Present: normal inspection - Respiratory Respiratory exam: Present: clear to auscultation bilaterally. Absent: rales, rhonchi, wheezes - Cardiovascular Cardiovascular exam: Present: regular rate and rhythm - GI/Abdominal GI/Abdominal exam: Present: normal bowel sounds. Absent: distended, guarding, tenderness - Extremities Exam Extremities exam: Present: normal inspection - Neurological Exam Neurological exam: Present: alert, oriented X3 - Psychiatric Psychiatric exam: Present: normal affect, normal mood - Skin Skin exam: Present: normal color, warm, dry Results - Labs CBC & BMP: 07/27/16 08:14 07/27/16 02:11 Quality Measures - VTE Contraindication to Pharmacological VTE Prophylaxis: Active Bleeding
[2016-07-27 13:50] LABS: Hematocrit 28.3 VOL% (42.0-52.0); Hemoglobin 9.4 GM/DL (14.0-18.0)
[2016-07-27 20:25] LABS: Hematocrit 26.6 VOL% (42.0-52.0)
[2016-07-28] MEDS: SODIUM CHLORIDE 0.9% 1,000 ML IV SCH ×4 (00:21→21:15)
[2016-07-28] MEDS: INSULIN LISPRO 100 UNIT/ML SUBCUT SCH ×4 (00:22→17:46)
[2016-07-28 01:36] LABS: Hematocrit 25.4 VOL% (42.0-52.0); Hemoglobin 8.5 GM/DL (14.0-18.0)
--- NOTE | 2016-07-28 07:49 | Urology Progress Note ---
Urology - PN: Subj Interval history: The patient has had gross hematuria since placement of ureteral stent last week. His sphincter has been locked open and the patient is voiding in a diaper and still has gross hematuria and has required intermittent catheterization one time. I will keep the patient n.p.o. after midnight in the event he needs cystoscopy tomorrow Exam - Constitutional Vitals: Period Temp Pulse Resp BP Sys/Cordero Pulse Ox Last 24 Hr 97.0 F-98.3 F 59-69 14-20 112-167/53-95 93-100 Results - Labs CBC & BMP: 07/28/16 01:21 07/27/16 02:11
[2016-07-28 08:24] LABS: Hematocrit 28.5 VOL% (42.0-52.0); Hemoglobin 9.5 GM/DL (14.0-18.0)
[2016-07-28] MEDS: SOLIFENACIN 5 MG TABLET PO SCH (08:35)
[2016-07-28] MEDS: TOPIRAMATE 100 MG TABLET PO SCH ×2 (08:35→21:14)
[2016-07-28 14:02] LABS: Hematocrit 26.9 VOL% (42.0-52.0); Hemoglobin 9.1 GM/DL (14.0-18.0)
--- NOTE | 2016-07-28 15:30 | Event Note ---
Pt presented Thursday evening w/ william hematuria and clots about 24 hours after placement of a right ureter stent for obstruction due to prostate ca. Required a 2 unit transfusion on Thursday. Hct has stabilized, 28 today. Although hematuria has continued, severity has diminishd. CT shows the stent to have migrated distally such that the proximal pigtail is in the mid ureter. Waiting for Dr. Mustafa return tomorrow as pt is stable and has had no adverse events after transfusion. Rather than making another renal puncture from above and snaring the stent, with the associated risks of recurrent bleeding, I would prefer Dr. Mustafa consider exchanging or manipulating the stent via cystoscopy and limit additional renal trauma. If massive hemorrhage recurs, recommend renal angiogram w/ option to embolize. Call with questions.
--- NOTE | 2016-07-28 16:56 | Hospitalist Progress Note ---
Assessment and Plan (1) Hydronephrosis of right kidney Status: Chronic Current Visit: No (2) Hematuria Status: Acute Assessment and plan: Urology managing. Possible cytoscopy tomorrow H/H stable today Current Visit: Yes (3) CKD (chronic kidney disease) stage 3, GFR 30-59 ml/min Status: Chronic Current Visit: Yes (4) Diabetes mellitus Status: Acute Current Visit: Yes Qualifiers: Diabetes mellitus type: type 2 Diabetes mellitus complication status: with hyperglycemia Diabetes mellitus tank terminal gauger insulin use: without detention use Qualified Code(s): E11.65 - Type 2 diabetes mellitus with hyperglycemia Hospitalist: Subjective Interval history: No acute events overnight. Still with hematuria, urology managing. Possible cytoscopy tomorrow. Exam - Constitutional Vitals: Period Temp Pulse Resp BP Sys/Cordero Pulse Ox Last 24 Hr 97.0 F-98.3 F 53-69 14-20 112-145/53-70 93-99 General appearance: over weight - Head Head exam: Present: normocephalic, atraumatic - Eye Eye exam: Present: EOMI Pupils: Present: FINA - ENT ENT exam: Present: normal exam - Neck Neck exam: Present: normal inspection - Respiratory Respiratory exam: Present: clear to auscultation bilaterally. Absent: rhonchi, wheezes - Cardiovascular Cardiovascular exam: Present: regular rate and rhythm - GI/Abdominal GI/Abdominal exam: Present: normal bowel sounds, soft. Absent: tenderness, rebound - Extremities Exam Extremities exam: Present: normal inspection - Back Exam Back exam: Present: normal inspection - Neurological Exam Neurological exam: Present: alert, oriented X3 - Psychiatric Psychiatric exam: Present: normal affect, normal mood - Skin Skin exam: Present: warm, intact Results - Labs CBC & BMP: 07/28/16 13:48 07/27/16 02:11 Quality Measures - VTE Contraindication to Pharmacological VTE Prophylaxis: Active Bleeding
[2016-07-29] MEDS: INSULIN LISPRO 100 UNIT/ML SUBCUT SCH ×4 (01:01→17:43)
[2016-07-29] MEDS: SODIUM CHLORIDE 0.9% 1,000 ML IV SCH ×3 (04:23→20:32)
[2016-07-29 05:35] LABS: Basophils % 0.2 % (0.0-0.8); Eosinophils # 0.1 10*3/uL (0.0-0.87); Eosinophils % 2.4 % (0.00-10.9); Hematocrit 28.1 VOL% (42.0-52.0); Immature Granulocytes % 0.5 %; Immature Granulocytes Absolute 0.02 #; Lymphocytes # 0.8 10*3/uL (1.4-4.0); Lymphocytes % 19.6 % (21.2-54.2); Mean Corpuscular Hemoglobin 30 PG (27-34); Mean Corpuscular Volume 92.4 FL (87-102); Monocytes # 0.5 10*3/uL (0.11-0.8); Neutrophils # 2.7 10*3/uL (1.4-7.4); Neutrophils % 65.3 % (38.7-73.9); Platelet Count 235 T/CUMM (130-400); Red Blood Count 3.04 MC/CUMM (3.8-5.5); Red Cell Distribution Width 13.5 % (9.3-17.3); White Blood Count 4.2 T/CUMM (4-12)
[2016-07-29 06:05] LABS: Calcium 8.1 MG/DL (8.5-10.1); Magnesium 1.8 MG/DL (1.8-2.4); Potassium 3.9 MMOL/L (3.5-5.1)
--- NOTE | 2016-07-29 08:05 | Urology Progress Note ---
Urology - PN: Subj Interval history: The patient's hemoglobin hematocrit is stable. He reports that the urine is clearing. The patient was catheterized yesterday and the bladder irrigated and there were no clots.. The sphincter remains locked open and the patient is voiding in a diaper Exam - Constitutional Vitals: Period Temp Pulse Resp BP Sys/Cordero Pulse Ox Last 24 Hr 97.2 F-98.1 F 53-65 18-18 123-151/61-70 97-100 Results - Labs CBC & BMP: 07/29/16 04:43 07/29/16 04:43
[2016-07-29] MEDS: TOPIRAMATE 100 MG TABLET PO SCH ×2 (08:26→20:33)
[2016-07-29] MEDS: SOLIFENACIN 5 MG TABLET PO SCH (08:26)
--- NOTE | 2016-07-29 17:11 | Hospitalist Progress Note ---
Assessment and Plan (1) Hematuria Status: Acute Assessment and plan: due to recent placement of antegrade right ureteral stent. improving with irrigation Urology is following monitor cbc levels, will transfuse as needed Current Visit: Yes (2) Hydronephrosis of right kidney Status: Chronic Assessment and plan: Urology is following, they are considering a replacement of his right ureteral stent either antegrade or retrograde where the curl would be located in the right collecting system as well as distally in the bladder once the aspirin wears off his system Current Visit: No (3) CKD (chronic kidney disease) stage 3, GFR 30-59 ml/min Status: Chronic Assessment and plan: slowly improving Current Visit: Yes (4) Diabetes mellitus Status: Acute Assessment and plan: controlled on current regime, will check HbA1c level Current Visit: Yes Qualifiers: Diabetes mellitus type: type 2 Diabetes mellitus complication status: with hyperglycemia Diabetes mellitus exterminator helper insulin use: without exterminator helper use Qualified Code(s): E11.65 - Type 2 diabetes mellitus with hyperglycemia (5) History of prostate cancer Status: Chronic Assessment and plan: History for several years, currently on Lupron and enzalutamide, per Dr. Aldana Current Visit: Yes Hospitalist: Subjective Interval history: Patient feels better and urine is clearer. Exam - Constitutional Vitals: Period Temp Pulse Resp BP Sys/Cordero Pulse Ox Last 24 Hr 97.2 F-98.1 F 53-65 17-18 113-151/61-66 97-100 General appearance: no acute distress - Head Head exam: Present: normal inspection - Respiratory Respiratory exam: Present: clear to auscultation bilaterally - Cardiovascular Cardiovascular exam: Present: regular rate and rhythm - GI/Abdominal GI/Abdominal exam: Present: normal bowel sounds - Extremities Exam Extremities exam: Present: normal inspection Results - Labs CBC & BMP: 07/29/16 04:43 07/29/16 04:43 Lab Results: I have reviewed the past 24 hour labs Quality Measures - VTE Contraindication to Pharmacological VTE Prophylaxis: Active Bleeding
[2016-07-30] MEDS: INSULIN LISPRO 100 UNIT/ML SUBCUT SCH ×4 (00:48→18:25)
[2016-07-30] MEDS: SODIUM CHLORIDE 0.9% 1,000 ML IV SCH ×3 (04:32→20:06)
[2016-07-30 05:52] LABS: Basophils % 0.2 % (0.0-0.8); Eosinophils # 0.1 10*3/uL (0.0-0.87); Eosinophils % 1.2 % (0.00-10.9); Hematocrit 27.3 VOL% (42.0-52.0); Immature Granulocytes % 0.4 %; Immature Granulocytes Absolute 0.02 #; Lymphocytes # 0.7 10*3/uL (1.4-4.0); Mean Corpuscular Hemoglobin 29 PG (27-34); Mean Corpuscular Volume 88.9 FL (87-102); Mean Platelet Volume 8.9 FL (9.6-12.0); Monocytes # 0.7 10*3/uL (0.11-0.8); Neutrophils # 4.2 10*3/uL (1.4-7.4); Neutrophils % 73.2 % (38.7-73.9); Platelet Count 205 T/CUMM (130-400); Red Blood Count 3.07 MC/CUMM (3.8-5.5); Red Cell Distribution Width 13.5 % (9.3-17.3); White Blood Count 5.7 T/CUMM (4-12)
[2016-07-30 06:31] LABS: Calcium 7.9 MG/DL (8.5-10.1); Osmolality,Calculated 285.1 MOS/KG (273-304); Potassium 3.9 MMOL/L (3.5-5.1)
[2016-07-30] MEDS: SOLIFENACIN 5 MG TABLET PO SCH (08:49)
[2016-07-30] MEDS: TOPIRAMATE 100 MG TABLET PO SCH ×2 (08:49→20:11)
--- NOTE | 2016-07-30 12:55 | Hospitalist Progress Note ---
Assessment and Plan (1) Hematuria Status: Acute Assessment and plan: due to recent placement of antegrade right ureteral stent. improved with irrigation Urology is following continue to monitor cbc levels, will transfuse as needed Current Visit: Yes (2) Hydronephrosis of right kidney Status: Chronic Assessment and plan: Urology is following, they are considering a replacement of his right ureteral stent either antegrade or retrograde where the curl would be located in the right collecting system as well as distally in the bladder once the aspirin wears off his system Follow urology's recommendations Current Visit: No (3) CKD (chronic kidney disease) stage 3, GFR 30-59 ml/min Status: Chronic Assessment and plan: stable Current Visit: Yes (4) Diabetes mellitus Status: Acute Assessment and plan: controlled on current regime, HbA1c level-5.0 Current Visit: Yes Qualifiers: Diabetes mellitus type: type 2 Diabetes mellitus complication status: with hyperglycemia Diabetes mellitus buttermaker helper insulin use: without buttermaker helper use Qualified Code(s): E11.65 - Type 2 diabetes mellitus with hyperglycemia (5) History of prostate cancer Status: Chronic Assessment and plan: History for several years, currently on Lupron and enzalutamide, per Dr. Aldana Current Visit: Yes Hospitalist: Subjective Interval history: Patient seen. Urine is clear, his Segundo has been removed. He had no new complaints.H/H-stable Exam - Constitutional Vitals: Period Temp Pulse Resp BP Sys/Cordero Pulse Ox Last 24 Hr 97.8 F-99.2 F 61-72 16-18 118-151/57-69 95-100 General appearance: no acute distress - Head Head exam: Present: normal inspection - Neck Neck exam: Present: normal inspection - Respiratory Respiratory exam: Present: clear to auscultation bilaterally - Cardiovascular Cardiovascular exam: Present: regular rate and rhythm - GI/Abdominal GI/Abdominal exam: Present: normal bowel sounds - Extremities Exam Extremities exam: Present: normal inspection - Neurological Exam Neurological exam: Present: alert, oriented X3 Results - Labs CBC & BMP: 07/30/16 05:40 07/30/16 05:40 Lab Results: I have reviewed the past 24 hour labs Quality Measures - VTE Contraindication to Pharmacological VTE Prophylaxis: Active Bleeding
--- NOTE | 2016-07-30 17:45 | Urology Progress Note ---
Urology - PN: Subj Interval history: Patient well known to me. Had a percutaneous stent placement he fell developed hematuria. Probably related procedure that was new but is cleared up. He is weak but he has been laying around. The sphincter was deactivated so I activated it. I think they can go home. I will see him in 2 weeks with a KUB. Exam - Constitutional Vitals: Period Temp Pulse Resp BP Sys/Cordero Pulse Ox Last 24 Hr 97.9 F-99.2 F 62-72 16-18 114-151/55-69 95-100 Results - Labs CBC & BMP: 07/30/16 05:40 07/30/16 05:40
[2016-07-31] MEDS: INSULIN LISPRO 100 UNIT/ML SUBCUT SCH ×4 (00:50→17:32)
[2016-07-31] MEDS: SODIUM CHLORIDE 0.9% 1,000 ML IV SCH ×3 (04:21→19:05)
[2016-07-31 07:29] LABS: Basophils % 0.2 % (0.0-0.8); Eosinophils % 0.6 % (0.00-10.9); Hematocrit 28.3 VOL% (42.0-52.0); Hemoglobin 9.4 GM/DL (14.0-18.0); Immature Granulocytes % 0.6 %; Immature Granulocytes Absolute 0.03 #; Lymphocytes # 0.5 10*3/uL (1.4-4.0); Lymphocytes % 8.5 % (21.2-54.2); Mean Corpuscular HGB Conc 33.2 GM/DL (32-36); Mean Corpuscular Hemoglobin 30 PG (27-34); Mean Corpuscular Volume 91.3 FL (87-102); Monocytes # 0.5 10*3/uL (0.11-0.8); Monocytes % 9.9 % (1.7-12.7); Neutrophils # 4.4 10*3/uL (1.4-7.4); Neutrophils % 80.2 % (38.7-73.9); Platelet Count 201 T/CUMM (130-400); Red Cell Distribution Width 13.8 % (9.3-17.3); White Blood Count 5.4 T/CUMM (4-12)
[2016-07-31 08:02] LABS: Calcium 8.2 MG/DL (8.5-10.1); Osmolality,Calculated 281.5 MOS/KG (273-304); Potassium 3.9 MMOL/L (3.5-5.1)
[2016-07-31] MEDS: SOLIFENACIN 5 MG TABLET PO SCH (09:16)
[2016-07-31] MEDS: TOPIRAMATE 100 MG TABLET PO SCH ×2 (09:16→20:58)
[2016-07-31 09:26] LABS: Apearance,Urine CLOUDY (Clear); Bilirubin,Urine Negative (Negative); Blood, Urine Large mg/dL (Negative); Glucose,Urine (UA) Negative (Negative); Ketones,Urine Negative (Negative); Mucus,Urine Occasional /LPF (Occasional); Nitrite,Urine Positive (Negative); Protein,Urine 100 MG/DL; RBC,Urine 70 /HPF (0-4); Urine Color Yellow (Yellow); Urine Specific Gravity 1.006 (1.001-1.035); Urine Urobilinogen < 2.0 EU/DL (0.2-1.0); WBC,Urine 2065 /HPF (0-6)
--- NOTE | 2016-07-31 10:13 | Discharge Summary ---
<Papi Reina - Last Filed: 07/31/16 09:47> Hospital Course - Hospital Course Hospital Course: This patient is a 75-year-old male who was admitted on 07/26/2016 to the ED with complaints of gross hematuria status post placement of a ureteral stent last week. His aspirin was held, he was typed and screened for possible blood transfusion, IV fluids were started, Segundo catheter placed, and urology was consulted. The patient is hemorrhaging subsided and urology continue to monitor migration of the ureteral stent. The patient was transfused with 2 units of leuk-reduced RBC. Interventional radiology was consulted for possible renal puncture and is narrowing of the stent. IR recommended against this. Urology reactivated the stent sphincter and the patient has been cleared for discharge. At this time he is reached maximum benefit from hospitalization and is stable. He will be discharged home with urology follow-up with Dr. Villa Mustafa in 2 weeks with a KUB. - Time spent with patient Time with patient DS: Greater than 30 minutes Specialty Discharge - Follow Up or Referrals Follow up with: Villa Mustafa MD [Physician] - 08/12/16 1:45 pm (Come to [place] on August 12, 2016 at 12:45 to have a KUB) Discharge Plan - Discharge Medications No Action metFORMIN [Glucophage] 1,000 mg PO BID W/MEALS Glimepiride 4 mg PO BID W/MEALS Pioglitazone [Actos] 15 mg PO DAILY Leuprolide IM (4 Month) [Lupron Depot (4 Month)] 30 mg IM ONCE Megestrol Acetate 20 mg PO DAILY Topiramate 100 mg PO BID Omeprazole 20 mg PO DAILY PRN PRN Reason: Indigestion Aspirin [Ecotrin] 81 mg PO QAM Multivitamin [Multivitamins] 1 each PO DAILY Solifenacin [Vesicare] 5 mg PO DAILY Diphenoxylate/Atrop 2.5-0.025 [Lomotil Tab] 1 tablet PO Q6H PRN PRN Reason: Diarrhea Enzalutamide [Xtandi] 160 mg PO DAILY Cyclobenzaprine [Flexeril] 10 mg PO TID #14 tablet HYDROcodone/ACETAMIN 7.5-325 [[place] 7.5-325] 1 tablet PO Q6H PRN PRN Reason: Pain [place]-3 Fatty Acids [Fish Oil] 1 tablet PO DAILY Calcium Carbonate [Calcium] 1 tablet PO DAILY - Follow Up or Referral Follow Up: Villa Mustafa MD [Physician] - 08/12/16 1:45 pm (Come to [place] on August 12, 2016 at 12:45 to have a KUB) - Forms/Instructions Instructions: Acute Hematuria (GEN) Exam - Constitutional Vitals: Period Temp Pulse Resp BP Sys/Cordero Pulse Ox Last 24 Hr 98.0 F-102.3 F 62-84 16-20 101-137/43-64 93-100 Discharge Results Procedures and tests throughout hospitalization: Pending Orders 07/26/16 01:59 Occult Blood, Stool Stat 07/31/16 Urine Culture Routine 07/31/16 09:46 Blood Culture Stat Labs on day of discharge: Labs from last 24 hours 07/31/16 07/31/16 07/31/16 11:25 09:06 07:15 WBC RBC Hgb Hct MCV MCH MCHC RDW Plt Count MPV Neut % (Auto) Lymph % (Auto) [place] % (Auto) Eos % (Auto) Baso % (Auto) Neut # (Auto) Lymph # (Auto) [place] # (Auto) Eos # (Auto) Baso # (Auto) Immature Gran % Nucleated RBC % Immature Gran # Nucleated RBCs # Sodium 139 Potassium 3.9 Chloride 109 H Carbon Dioxide 20 L Anion Gap 13.9 BUN 20 H Creatinine 1.80 H GFR Calculation 39 BUN/Creatinine Ratio 11.00 Glucose 134 H POC Glucose 165 H Calculated Osmolality 281.5 Calcium 8.2 L Urine Color Yellow Urine Appearance Cloudy Urine pH 6.0 Ur Specific [place] 1.006 Urine Protein 100 Urine Glucose (UA) Negative Urine Ketones Negative Urine Blood Large Urine Nitrate Positive H Urine Bilirubin Negative Urine Urobilinogen < 2.0 H Urine Leukocytes Large H Urine RBC 70 Urine WBC 2065 Urine WBC Clumps Many Urine Mucus Occasional Ur Culture Indicated? Results to follow 07/31/16 07/31/16 07/31/16 07:15 06:26 00:40 WBC 5.4 RBC 3.10 L Hgb 9.4 L Hct 28.3 L MCV 91.3 MCH 30 MCHC 33.2 RDW 13.8 Plt Count 201 MPV 9.0 L Neut % (Auto) 80.2 H Lymph % (Auto) 8.5 L [place] % (Auto) 9.9 Eos % (Auto) 0.6 Baso % (Auto) 0.2 Neut # (Auto) 4.4 Lymph # (Auto) 0.5 L [place] # (Auto) 0.5 Eos # (Auto) 0.0 Baso # (Auto) 0.0 Immature Gran % 0.6 Nucleated RBC % 0.0 Immature Gran # 0.03 Nucleated RBCs # 0.00 Sodium Potassium Chloride Carbon Dioxide Anion Gap BUN Creatinine GFR Calculation BUN/Creatinine Ratio Glucose POC Glucose 150 H 151 H Calculated Osmolality Calcium Urine Color Urine Appearance Urine pH Ur Specific [place] Urine Protein Urine Glucose (UA) Urine Ketones Urine Blood Urine Nitrate Urine Bilirubin Urine Urobilinogen Urine Leukocytes Urine RBC Urine WBC Urine WBC Clumps Urine Mucus Ur Culture Indicated? 07/30/16 17:53 WBC RBC Hgb Hct MCV MCH MCHC RDW Plt Count MPV Neut % (Auto) Lymph % (Auto) [place] % (Auto) Eos % (Auto) Baso % (Auto) Neut # (Auto) Lymph # (Auto) [place] # (Auto) Eos # (Auto) Baso # (Auto) Immature Gran % Nucleated RBC % Immature Gran # Nucleated RBCs # Sodium Potassium Chloride Carbon Dioxide Anion Gap BUN Creatinine GFR Calculation BUN/Creatinine Ratio Glucose POC Glucose 114 H Calculated Osmolality Calcium Urine Color Urine Appearance Urine pH Ur Specific [place] Urine Protein Urine Glucose (UA) Urine Ketones Urine Blood Urine Nitrate Urine Bilirubin Urine Urobilinogen Urine Leukocytes Urine RBC Urine WBC Urine WBC Clumps Urine Mucus Ur Culture Indicated? DS: Provider Date of admission: 07/26/16 00:46 Primary care physician: Mario Alberto Morneo, Attending physician on admission: Trae Reeves MD Consults: 07/26/16 01:59 Consult to Physician [CONS] Routine Comment: hematuria after external-internal stent Consulting Provider: Trae Herrera Person Notified: rob Date Notified: 07/28/16 Time Notified: 10:59 07/26/16 11:15 Consult to Physician [CONS] Routine Comment: hematuria Consulting Provider: Villa Mustafa Person Notified: Lula Date Notified: 07/28/16 Time Notified: 09:23 Consult Notification Comment: Dr. Diaz made aware on 07/26/16 Discharging clinician: Papi MULLIGAN Expected date of discharge: 07/31/16 <Shadia Cochran - Last Filed: 07/31/16 14:50> Hospital Course - Hospital Course Hospital Course: Patient spiked a temp of 102.3 this morning and overnight. His UA was positive so he will be started on IV Levaquin and we will hold his dc and follow cultures. Diagnosis - Discharge Diagnosis (1) Hematuria Status: Acute (2) Hydronephrosis of right kidney Status: Chronic (3) CKD (chronic kidney disease) stage 3, GFR 30-59 ml/min Status: Chronic (4) Diabetes mellitus Status: Acute (5) History of prostate cancer Status: Chronic Exam - Constitutional General appearance: no acute distress - Head Head exam: Present: normal inspection - Respiratory Respiratory exam: Present: clear to auscultation bilaterally - Cardiovascular Cardiovascular exam: Present: regular rate and rhythm - GI/Abdominal GI/Abdominal exam: Present: normal bowel sounds - Extremities Exam Extremities exam: Present: normal inspection
[2016-07-31] MEDS ORDERED: LEVOFLOXACIN INJ 500 MG in PREMIX 1 EACH IV ONE (11:30)
--- NOTE | 2016-07-31 11:58 | Urology Progress Note ---
Urology - PN: Subj Interval history: Patient ran some fever last night so they are going to hold in. I will order chest x-ray to make sure he has not developed pneumonia. And while he is in the bed he needs DVT prevention. On exam he does not have any swelling is legs are Malathi negative. Exam - Constitutional Vitals: Period Temp Pulse Resp BP Sys/Cordero Pulse Ox Last 24 Hr 98.0 F-102.3 F 62-84 16-20 101-137/43-64 93-100 Results - Labs CBC & BMP: 07/31/16 07:15 07/31/16 07:15 Specialty Discharge - Follow Up or Referrals Follow up with: Villa Mustafa MD [Physician] - 08/12/16 1:45 pm (Come to [place] on August 12, 2016 at 12:45 to have a KUB)
[2016-07-31] MEDS: ACETAMINOPHEN 325 MG TABLET PO PRN (12:03)
--- NOTE | 2016-07-31 12:55 | XRay Report ---
Exam: XR chest 2V Date: 07/31/2016 11:27 AM Indication: Fever Comparison: 05/19/2011 Technical PA lateral Findings: Mild cardiac enlargement is present. No obvious infiltrate or effusion. Previous cervical fusion noted. Degenerative change present thoracic spine with ossification of costochondral cartilages. Impression: 1. Mild cardiomegaly without decompensation or acute cardiopulmonary pathology 2. Previous cervical fusion PROCEDURE INTERPRETED AT [facility] DEPARTMENT OF RADIOLOGY Final Report Signed by: Dr. Mario Alberto Dyer
[2016-08-01] MEDS: INSULIN LISPRO 100 UNIT/ML SUBCUT SCH ×5 (01:43→23:49)
[2016-08-01] MEDS: SODIUM CHLORIDE 0.9% 1,000 ML IV SCH ×4 (02:28→18:21)
[2016-08-01] MEDS: ACETAMINOPHEN 325 MG TABLET PO PRN ×2 (05:34→18:21)
[2016-08-01 07:26] LABS: Basophils % 0.2 % (0.0-0.8); Hematocrit 25.1 VOL% (42.0-52.0); Hemoglobin 8.5 GM/DL (14.0-18.0); Immature Granulocytes % 1.5 %; Immature Granulocytes Absolute 0.06 #; Lymphocytes # 0.5 10*3/uL (1.4-4.0); Lymphocytes % 12.4 % (21.2-54.2); Mean Corpuscular HGB Conc 33.9 GM/DL (32-36); Mean Corpuscular Hemoglobin 30 PG (27-34); Mean Corpuscular Volume 87.2 FL (87-102); Mean Platelet Volume 9.5 FL (9.6-12.0); Monocytes # 0.5 10*3/uL (0.11-0.8); Monocytes % 12.2 % (1.7-12.7); Neutrophils % 73.7 % (38.7-73.9); Platelet Count 175 T/CUMM (130-400); Red Blood Count 2.88 MC/CUMM (3.8-5.5); Red Cell Distribution Width 13.8 % (9.3-17.3); White Blood Count 4.1 T/CUMM (4-12)
[2016-08-01 07:48] LABS: Band Neutrophils 2 % (0-10); Hypochromasia 1+; Lymphocytes 11 % (20-55); Ovalocytes Slight; Platelet Estimate Normal; Segmented Neutrophils 76 % (50-85); Total Cells Counted 100
--- NOTE | 2016-08-01 07:48 | Oncology Consult Note ---
History of Present Illness Chief complaint: Prostate cancer History of present illness: Mr. Fields is a 75 year old male that I have been following for prostate cancer that is currently being treated with hormone therapy. His illness has been complicated by the fact that he has bladder outlet obstruction requiring ureteral stents to be placed. These were successfully placed by Dr. Villa Mustafa and the patient went home. He subsequently fell and was readmitted with hematuria and the placement of the stents was modestly affected. After admission, he had a fever spike. He has a blood culture that is reported positive for gram-negative rods. The report was posted on the electronic medical record on July 31. The bacteria has not been identified. The patient had been receiving Xtandi as part of the treatment for his prostate cancer but is being held presently because I am not sure it is being effective anymore. However, I am not absolutely certain about this. Instructed him and his to retain the Xtandi and not discarded. I have considered treating him with alternatives to Xtandi, including Taxotere and possibly Zytiga. Our plan is to withhold any further changes in treatment of his prostate cancer until he recovers from this episode of sepsis and he has had a couple of weeks out of the hospital. When he is discharged, I have instructed him to call my office to arrange for the next appointment. However, I expect he will be here through the weekend so I will check back on him on Thursday. Feel free to contact my partner this weekend if needed. Past medical history: Allergies: Penicillin, tetanus vaccine and tetanus toxoid. Physical examination: General: The patient appears to be chronically ill but currently he is in no acute distress. Eyes: Normal lids and conjunctivae. ENT: Moderately poor dentition. No oral mucosa and pharynx are normal. His hearing is normal. Neck: No masses. The trachea is midline. The thyroid is normal. Lungs: Relatively normal breath sounds with normal respiratory effort and symmetric chest motion with respiration. No chest wall tenderness. The lungs are clear. Cardiovascular: His heart rhythm is regular without murmur, gallop or rub. There is no jugular venous distention, clubbing or cyanosis. Abdomen: A genital examination does not demonstrate any ascites, masses or organomegaly. Musculoskeletal: There is no focal muscle atrophy or bone or joint deformity. He has generalized muscle weakness. Neurologic: Cranial nerves II through XII are intact. There are no focal neurologic deficits. Nodes: I palpate no submandibular, cervical or supraclavicular adenopathy. Impression: #1: Prostate carcinoma complicated by bladder outlet obstruction requiring ureteral stents to be placed #2: Gram-negative sepsis with the organism yet to be identified. I would recommend treating the patient with Merrem unless he does not tolerate it for some reason. I note that his serum creatinine is slightly elevated at 1.7 and the dose may need adjustment as result of that. #3: His prostate cancer may be developing resistance to Xtandi which is enzalutamide. I may need to consider altering treatment, which I will do after the patient has recovered from the current problems. Thank you for consulting me. Home Medications Medication Instructions Recorded Confirmed Type Aspirin [Ecotrin] 81 mg PO QAM 12/28/14 07/25/16 History Glimepiride 4 mg PO BID W/MEALS 12/28/14 07/25/16 History Leuprolide IM (4 Month) [Lupron 30 mg IM ONCE 12/28/14 07/25/16 History [place] (4 Month)] Megestrol Acetate 20 mg PO DAILY 12/28/14 07/25/16 History Omeprazole 20 mg PO DAILY PRN 12/28/14 07/25/16 History Pioglitazone [Actos] 15 mg PO DAILY 12/28/14 07/25/16 History Topiramate 100 mg PO BID 12/28/14 07/25/16 History metFORMIN [Glucophage] 1,000 mg PO BID W/MEALS 12/28/14 07/25/16 History Cyclobenzaprine [Flexeril] 10 mg PO TID #14 tablet 01/29/16 07/25/16 Rx Diphenoxylate/Atrop 2.5-0.025 1 tablet PO Q6H PRN 01/29/16 07/25/16 History [Lomotil Tab] Enzalutamide [Xtandi] 160 mg PO DAILY 01/29/16 07/25/16 History Multivitamin [Multivitamins] 1 each PO DAILY 01/29/16 07/25/16 History Solifenacin [Vesicare] 5 mg PO DAILY 01/29/16 07/25/16 History Calcium Carbonate [Calcium] 1 tablet PO DAILY 07/22/16 07/25/16 History HYDROcodone/ACETAMIN 7.5-325 1 tablet PO Q6H PRN 07/22/16 07/25/16 History [[place] 7.5-325] [place]-3 Fatty Acids [Fish Oil] 1 tablet PO DAILY 07/22/16 07/25/16 History Allergies Allergy/AdvReac Type Severity Reaction Status Date / Time Penicillins Allergy Unknown Unknown/Unable Verified 07/22/16 12:04 to obtain Tetanus Vaccines and Toxoid Allergy Unknown Unknown/Unable Verified 07/22/16 12: 04 [Tetanus Vaccines & Toxoid] to obtain Medical,Surgical,& Family Hx - Medical History Psychological: History of: Depression Neurology: History of: Migraine (OCCASIONALLY) No history of: Seizures HEENT: History of: Ear Problem (NUSRAT HEARING AIDS), Eye Problem (GLASSES) Endocrine: History of: Diabetes Mellitus (NIDDM) Respiratory: No history of: Respiratory Problems (FLU VAC-NO;PNEU VAC- YES. 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 DR LOWERY. 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 NUSRAT CARPAL TUNNEL), Spinal Surgery (NECK SURGERY 2002) - Family History Family History: Reports;: Family Heart Disease, Family Hypertension - Social History Smoking Status: Never smoker Frequency of Alcohol Use: None Type of Drug Use: None Exam - Constitutional Vitals: Period Temp Pulse Resp BP Sys/Cordero Pulse Ox Last 24 Hr 98.1 F-102.3 F 78-100 16-20 117-133/54-85 97-100 Results - Labs CBC & BMP: 08/01/16 07:00 08/01/16 07:00 Quality Measures - VTE Contraindication to Pharmacological VTE Prophylaxis: Active Bleeding Specialty Discharge - Follow Up or Referrals Follow up with: Villa Mustafa MD [Physician] - 08/12/16 1:45 pm (Come to [place] on August 12, 2016 at 12:45 to have a KUB)
[2016-08-01 08:04] LABS: Calcium 7.9 MG/DL (8.5-10.1); Osmolality,Calculated 281.5 MOS/KG (273-304); Potassium 3.5 MMOL/L (3.5-5.1)
[2016-08-01] MEDS: TOPIRAMATE 100 MG TABLET PO SCH ×2 (08:53→21:19)
[2016-08-01] MEDS: SOLIFENACIN 5 MG TABLET PO SCH (08:53)
--- NOTE | 2016-08-01 10:24 | Event Note ---
No new bleeding events during this hospitalization. Hematocrit has remained stable from 25-28. At this point, doubt need for continued surveillance for angiography of the kidney. Internalize right double-J ureter stent apparently working without difficulty. Creatinine 1.7. Please call with questions.
[2016-08-01] MEDS: LEVOFLOXACIN INJ 250 MG in PREMIX 1 EACH IV SCH (11:19)
[2016-08-01] MEDS ORDERED: LACTULOSE 20 GM/30 ML UDCUP PO PRN (11:31)
[2016-08-01] MEDS: MEROPENEM 500 MG in SODIUM CHLORIDE 0.9% 100 ML IV SCH ×2 (11:41→23:49)
--- NOTE | 2016-08-01 13:00 | Urology Progress Note ---
Urology - PN: Subj Interval history: Patient spiked fever this morning. He is on Levaquin IV culture is pending. The says he is weak and it is a combination of the cancer and the UTI. He does state that his sphincter does not seem to be working properly. I deactivated the other day. I told him with the infection and the cancer we will wait and see and I will check in on Thursday. For right now we will use diapers. I will check back on Thursday. Exam - Constitutional Vitals: Period Temp Pulse Resp BP Sys/Cordero Pulse Ox Last 24 Hr 98.1 F-101.1 F 69-100 16-20 106-127/48-85 97-100 Results - Labs CBC & BMP: 08/01/16 07:00 08/01/16 07:00 Specialty Discharge - Follow Up or Referrals Follow up with: Villa Mustafa MD [Physician] - 08/12/16 1:45 pm (Come to [place] on August 12, 2016 at 12:45 to have a KUB)
--- NOTE | 2016-08-01 16:14 | Hospitalist Progress Note ---
Assessment and Plan (1) Hematuria Status: Acute Assessment and plan: due to recent placement of antegrade right ureteral stent. -improved with irrigation Plan Urology is following continue to monitor cbc levels, will transfuse as needed Current Visit: Yes (2) Hydronephrosis of right kidney Status: Chronic Assessment and plan: Urology is following, they are considering a replacement of his right ureteral stent either antegrade or retrograde where the curl would be located in the right collecting system as well as distally in the bladder once the aspirin wears off his system Follow urology's recommendations Current Visit: No (3) CKD (chronic kidney disease) stage 3, GFR 30-59 ml/min Status: Chronic Assessment and plan: stable Current Visit: Yes (4) Diabetes mellitus Status: Acute Assessment and plan: controlled on current regime, HbA1c level-5.0 Current Visit: Yes Qualifiers: Diabetes mellitus type: type 2 Diabetes mellitus complication status: with hyperglycemia Diabetes mellitus ad terminal makeup operator insulin use: without ad terminal makeup operator use Qualified Code(s): E11.65 - Type 2 diabetes mellitus with hyperglycemia (5) History of prostate cancer Status: Chronic Assessment and plan: History for several years, Hem/Onc saw him today. Follow recommendations. Current Visit: Yes (6) Gram-negative bacteremia Status: Acute Assessment and plan: will add Merrem to Levaquin, follow sensitivity Current Visit: Yes (7) UTI (urinary tract infection) Status: Acute Assessment and plan: UC grew gram negtive rods -On IV Merrem and Levaquin Current Visit: Yes Hospitalist: Subjective Interval history: Patient was still spiking on Levaquin. Urine cultures and one bottle blood culture grew gram negative rods.Oncology saw him today for his Prostate cancer. Exam - Constitutional Vitals: Period Temp Pulse Resp BP Sys/Cordero Pulse Ox Last 24 Hr 98.2 F-101.1 F 69-81 16-20 106-126/48-67 97-100 General appearance: no acute distress - Head Head exam: Present: normal inspection - Respiratory Respiratory exam: Present: clear to auscultation bilaterally - Cardiovascular Cardiovascular exam: Present: regular rate and rhythm - GI/Abdominal GI/Abdominal exam: Present: normal bowel sounds - Extremities Exam Extremities exam: Present: normal inspection Results - Labs CBC & BMP: 08/01/16 07:00 08/01/16 07:00 Lab Results: I have reviewed the past 24 hour labs Quality Measures - VTE Contraindication to Pharmacological VTE Prophylaxis: Active Bleeding Specialty Discharge - Follow Up or Referrals Follow up with: Villa Mustafa MD [Physician] - 08/12/16 1:45 pm (Come to [place] on August 12, 2016 at 12:45 to have a KUB)
[2016-08-02] MEDS: INSULIN LISPRO 100 UNIT/ML SUBCUT SCH ×3 (05:24→17:46)
[2016-08-02 07:30] LABS: Eosinophils % 0.3 % (0.00-10.9); Hematocrit 25.8 VOL% (42.0-52.0); Hemoglobin 8.6 GM/DL (14.0-18.0); Immature Granulocytes % 0.3 %; Immature Granulocytes Absolute 0.01 #; Lymphocytes # 0.5 10*3/uL (1.4-4.0); Lymphocytes % 13.8 % (21.2-54.2); Mean Corpuscular HGB Conc 33.3 GM/DL (32-36); Mean Corpuscular Hemoglobin 30 PG (27-34); Mean Corpuscular Volume 88.7 FL (87-102); Mean Platelet Volume 9.7 FL (9.6-12.0); Monocytes # 0.7 10*3/uL (0.11-0.8); Monocytes % 18.5 % (1.7-12.7); Neutrophils # 2.4 10*3/uL (1.4-7.4); Neutrophils % 67.1 % (38.7-73.9); Platelet Count 167 T/CUMM (130-400); Red Blood Count 2.91 MC/CUMM (3.8-5.5); Red Cell Distribution Width 13.8 % (9.3-17.3); White Blood Count 3.6 T/CUMM (4-12)
[2016-08-02 08:03] LABS: Calcium 7.7 MG/DL (8.5-10.1); Osmolality,Calculated 286.3 MOS/KG (273-304); Potassium 3.4 MMOL/L (3.5-5.1)
[2016-08-02] MEDS: SOLIFENACIN 5 MG TABLET PO SCH (09:33)
[2016-08-02] MEDS: TOPIRAMATE 100 MG TABLET PO SCH ×2 (09:34→20:04)
[2016-08-02] MEDS: MEGESTROL 40 MG TABLET PO SCH (09:34)
[2016-08-02] MEDS: SODIUM CHLORIDE 0.9% 1,000 ML IV SCH ×2 (10:34→17:54)
[2016-08-02 10:44] LABS: Hypochromasia Slight
[2016-08-02] MEDS: LEVOFLOXACIN INJ 250 MG in PREMIX 1 EACH IV SCH (11:15)
[2016-08-02] MEDS: MEROPENEM 500 MG in SODIUM CHLORIDE 0.9% 100 ML IV SCH ×2 (11:17→23:11)
--- NOTE | 2016-08-02 16:26 | Hospitalist Progress Note ---
Assessment and Plan (1) Hematuria Status: Acute Assessment and plan: due to recent placement of antegrade right ureteral stent. -improved with irrigation Plan Urology is following continue to monitor cbc levels, will transfuse as needed Current Visit: Yes (2) Hydronephrosis of right kidney Status: Chronic Assessment and plan: Urology is following, they are considering a replacement of his right ureteral stent either antegrade or retrograde where the curl would be located in the right collecting system as well as distally in the bladder once the aspirin wears off his system Follow urology's recommendations Current Visit: No (3) CKD (chronic kidney disease) stage 3, GFR 30-59 ml/min Status: Chronic Assessment and plan: stable Current Visit: Yes (4) Diabetes mellitus Status: Acute Assessment and plan: controlled on current regime, HbA1c level-5.0 Current Visit: Yes Qualifiers: Diabetes mellitus type: type 2 Diabetes mellitus complication status: with hyperglycemia Diabetes mellitus rn long term care insulin use: without rn long term care use Qualified Code(s): E11.65 - Type 2 diabetes mellitus with hyperglycemia (5) History of prostate cancer Status: Chronic Assessment and plan: History for several years, Hem/Onc is following. Follow recommendations. Current Visit: Yes (6) Gram-negative bacteremia Status: Acute Assessment and plan: Continue with Merrem and Levaquin, follow sensitivity Current Visit: Yes (7) UTI (urinary tract infection) Status: Acute Assessment and plan: UC grew E. Coli -On IV Merrem and Levaquin Current Visit: Yes Hospitalist: Subjective Interval history: Patient was lying comfortably on the bed. He has been afebrile. requests for home health and wheelchair upon dc. Exam - Constitutional Vitals: Period Temp Pulse Resp BP Sys/Cordero Pulse Ox Last 24 Hr 97 F-100.8 F 56-78 16-20 116-129/51-57 98-100 General appearance: no acute distress - Head Head exam: Present: normal inspection - Respiratory Respiratory exam: Present: clear to auscultation bilaterally - Cardiovascular Cardiovascular exam: Present: regular rate and rhythm - GI/Abdominal GI/Abdominal exam: Present: normal bowel sounds - Extremities Exam Extremities exam: Present: normal inspection Results - Labs CBC & BMP: 08/02/16 07:01 08/02/16 07:01 Lab Results: I have reviewed the past 24 hour labs Quality Measures - VTE Contraindication to Pharmacological VTE Prophylaxis: Active Bleeding Specialty Discharge - Follow Up or Referrals Follow up with: Villa Mustafa MD [Physician] - 08/12/16 1:45 pm (Come to [place] on August 12, 2016 at 12:45 to have a KUB)
[2016-08-02] MEDS ORDERED: POTASSIUM CHLORIDE 20 MEQ TABLET PO ONE (16:27)
[2016-08-02] MEDS: ACETAMINOPHEN 325 MG TABLET PO PRN (20:51)
[2016-08-03] MEDS: INSULIN LISPRO 100 UNIT/ML SUBCUT SCH ×4 (00:11→17:40)
[2016-08-03] MEDS: ACETAMINOPHEN 325 MG TABLET PO PRN ×2 (02:16→20:00)
[2016-08-03 07:08] LABS: Basophils % 0.3 % (0.0-0.8); Eosinophils # 0.1 10*3/uL (0.0-0.87); Eosinophils % 1.6 % (0.00-10.9); Immature Granulocytes % 0.6 %; Immature Granulocytes Absolute 0.02 #; Lymphocytes # 0.7 10*3/uL (1.4-4.0); Lymphocytes % 21.8 % (21.2-54.2); Mean Corpuscular HGB Conc 33.3 GM/DL (32-36); Mean Corpuscular Hemoglobin 30 PG (27-34); Mean Corpuscular Volume 88.6 FL (87-102); Mean Platelet Volume 10.2 FL (9.6-12.0); Monocytes # 0.5 10*3/uL (0.11-0.8); Neutrophils # 1.9 10*3/uL (1.4-7.4); Neutrophils % 59.7 % (38.7-73.9); Platelet Count 152 T/CUMM (130-400); Red Blood Count 2.71 MC/CUMM (3.8-5.5); Red Cell Distribution Width 13.9 % (9.3-17.3); White Blood Count 3.1 T/CUMM (4-12)
[2016-08-03 07:36] LABS: Calcium 7.9 MG/DL (8.5-10.1); Potassium 3.6 MMOL/L (3.5-5.1)
[2016-08-03 07:49] LABS: Eosinophils 3 % (0-10); Lymphocytes 13 % (20-55); Segmented Neutrophils 73 % (50-85); Total Cells Counted 100
[2016-08-03 07:50] LABS: Hypochromasia 2+; Microcytosis 2+; Platelet Estimate Adequate
[2016-08-03] MEDS: MEGESTROL 40 MG TABLET PO SCH (09:12)
[2016-08-03] MEDS: SOLIFENACIN 5 MG TABLET PO SCH (09:12)
[2016-08-03] MEDS: TOPIRAMATE 100 MG TABLET PO SCH ×2 (09:12→20:01)
[2016-08-03] MEDS: LEVOFLOXACIN INJ 250 MG in PREMIX 1 EACH IV SCH (11:00)
[2016-08-03] MEDS: MEROPENEM 500 MG in SODIUM CHLORIDE 0.9% 100 ML IV SCH (12:30)
[2016-08-03] MEDS: SODIUM CHLORIDE 0.9% 1,000 ML IV SCH (13:54)
--- NOTE | 2016-08-03 15:11 | Hospitalist Progress Note ---
Assessment and Plan (1) Hematuria Status: Acute Assessment and plan: due to recent placement of antegrade right ureteral stent. -improved with irrigation Plan Urology is following continue to monitor cbc levels, will transfuse as needed Current Visit: Yes (2) Hydronephrosis of right kidney Status: Chronic Assessment and plan: Urology is following, they are considering a replacement of his right ureteral stent either antegrade or retrograde where the curl would be located in the right collecting system as well as distally in the bladder once the aspirin wears off his system Follow urology's recommendations Current Visit: No (3) CKD (chronic kidney disease) stage 3, GFR 30-59 ml/min Status: Chronic Assessment and plan: stable Current Visit: Yes (4) Diabetes mellitus Status: Acute Assessment and plan: controlled on current regime, HbA1c level-5.0 Current Visit: Yes Qualifiers: Diabetes mellitus type: type 2 Diabetes mellitus complication status: with hyperglycemia Diabetes mellitus terminal operations manager insulin use: without terminal operations manager use Qualified Code(s): E11.65 - Type 2 diabetes mellitus with hyperglycemia (5) History of prostate cancer Status: Chronic Assessment and plan: History for several years, Hem/Onc is following. Follow recommendations. Current Visit: Yes (6) Gram-negative bacteremia Status: Acute Assessment and plan: BC and UC grew E.Coli resistant to Levaquin Continue with Merrem , dc Levaquin, Current Visit: Yes (7) UTI (urinary tract infection) Status: Acute Assessment and plan: UC grew E. Coli resistant to Levaquin and Cipro -Continue IV Merrem, dc Levaquin Current Visit: Yes (8) Acute blood loss anemia Status: Acute Assessment and plan: will transfuse if Hb drops less than 8.0. Current Visit: Yes Hospitalist: Subjective Interval history: Patient was lying down comfortably on a recliner. Exam - Constitutional Vitals: Period Temp Pulse Resp BP Sys/Cordero Pulse Ox Last 24 Hr 97.0 F-98.9 F 50-66 16-20 105-134/47-66 98-100 General appearance: no acute distress - Respiratory Respiratory exam: Present: clear to auscultation bilaterally - Cardiovascular Cardiovascular exam: Present: regular rate and rhythm - GI/Abdominal GI/Abdominal exam: Present: normal bowel sounds - Extremities Exam Extremities exam: Present: normal inspection Results - Labs CBC & BMP: 08/03/16 06:10 08/03/16 06:10 Lab Results: I have reviewed the past 24 hour labs Quality Measures - VTE Contraindication to Pharmacological VTE Prophylaxis: Active Bleeding Specialty Discharge - Follow Up or Referrals Follow up with: Villa Mustafa MD [Physician] - 08/12/16 1:45 pm (Come to [place] on August 12, 2016 at 12:45 to have a KUB)
[2016-08-04] MEDS: INSULIN LISPRO 100 UNIT/ML SUBCUT SCH ×4 (00:01→17:01)
[2016-08-04] MEDS: MEROPENEM 500 MG in SODIUM CHLORIDE 0.9% 100 ML IV SCH ×2 (00:03→11:46)
[2016-08-04 07:02] LABS: Basophils % 0.3 % (0.0-0.8); Eosinophils # 0.1 10*3/uL (0.0-0.87); Eosinophils % 2.1 % (0.00-10.9); Hematocrit 25.3 VOL% (42.0-52.0); Hemoglobin 8.5 GM/DL (14.0-18.0); Immature Granulocytes % 0.9 %; Immature Granulocytes Absolute 0.03 #; Lymphocytes # 0.8 10*3/uL (1.4-4.0); Lymphocytes % 23.7 % (21.2-54.2); Mean Corpuscular HGB Conc 33.6 GM/DL (32-36); Mean Corpuscular Hemoglobin 29 PG (27-34); Mean Corpuscular Volume 87.2 FL (87-102); Mean Platelet Volume 9.6 FL (9.6-12.0); Monocytes # 0.4 10*3/uL (0.11-0.8); Monocytes % 12.6 % (1.7-12.7); Neutrophils % 60.4 % (38.7-73.9); Platelet Count 158 T/CUMM (130-400); Red Cell Distribution Width 13.8 % (9.3-17.3); White Blood Count 3.3 T/CUMM (4-12)
[2016-08-04 07:28] LABS: Potassium 3.7 MMOL/L (3.5-5.1)
[2016-08-04] MEDS: SOLIFENACIN 5 MG TABLET PO SCH (08:23)
[2016-08-04] MEDS: MEGESTROL 40 MG TABLET PO SCH (08:23)
[2016-08-04] MEDS: TOPIRAMATE 100 MG TABLET PO SCH ×2 (08:24→22:11)
--- NOTE | 2016-08-04 10:38 | Urology Progress Note ---
Urology - PN: Subj Interval history: Patient is improving from his urinary tract infection. However he has had some hematochezia. GI has been consulted. I am not surprised considering he has had previous external radiation and probably has some proctitis this probably intermittent. He complained of the sphincter not working well. I went over at length and in much detail about the workings of the sphincter. And it appeared to me, that he is probably deactivating. He is using the upper and of the pump mechanism to try to secure this. And I think he is hitting the deactivating button when he is trying to activate the sphincter and it thus activates. With multiple attempts I was able to reactivate the sphincter. His scrotum is small and it is very mobile. This patient with him laying in the bed but I was able to activate it once again. I showed him the model of the pump mechanism. And I explained that he needs to keep his fingers away from the button when he is secure in the palm when he tries to activated because if he does state that but when he is pumping, it will be activated. Hopefully he will take note of all this and the sphincter will continue to work for him in the fashion that he expects it to. If it does not then he will need to unfortunately see Dr. Douglas in [place]. 30min. Exam - Constitutional Vitals: Period Temp Pulse Resp BP Sys/Cordero Pulse Ox Last 24 Hr 97.0 F-98.3 F 52-74 16-20 105-127/52-68 98-100 Results - Labs CBC & BMP: 08/04/16 06:22 08/04/16 06:22 Specialty Discharge - Follow Up or Referrals Follow up with: Villa Mustafa MD [Physician] - 08/12/16 1:45 pm (Come to [place] on August 12, 2016 at 12:45 to have a KUB)
[2016-08-04] MEDS: SODIUM CHLORIDE 0.9% 1,000 ML IV SCH (11:12)
[2016-08-04] MEDS: ACETAMINOPHEN 325 MG TABLET PO PRN (13:01)
--- NOTE | 2016-08-04 13:45 | Gastrointestinal Consult Note ---
Assessment and Plan (1) Hematochezia Status: Acute Assessment and plan: 08/04-reports of hematochezia over the weekend with no associated symptoms. Last C scope 2013 with findings of diverticulosis. History of external radiation in the past as well as history of prostate cancer. Hemoglobin stable at 8.5. Check stool for occult blood. Plan an addendum to followed by Dr. Scherer. Current Visit: Yes History of Present Illness Chief complaint: Hematochezia History of present illness: Mr. Fields is a 75 year old male who was admitted to the hospital on 07/26 far complaints of hematuria. Patient has a history of CKD, stage III, hypertension, diabetes, GERD and prostate cancer who is being followed by Dr. Mustafa. Patient has a history of an obstructing tumor causing right hydronephrosis with recent right ureteral stent placement. Patient states that he was in his usual state of health prior to admission when he developed onset of hematuria. He presented to the emergency room and was admitted for further workup. He was found as well on admission to have anemia with a drop in his hemoglobin to 7.2. He was transfused 2 units of packed red blood cells and his hemoglobin is now holding at 8.5. Over the weekend patient states that he use the restroom in which he defecated as well as urinated and was noted to have bright red blood in the commode water. Patient was uncertain as if this came from his stools are from the urine. He does have a history of previous external radiation in the past. He states prior to admission he has seen no melena or hematochezia. He denies any abdominal pain, fever, weight loss. He denies any nausea or vomiting. His last colonoscopy was noted 2013 with findings of diverticulosis and a polyp which was removed with pathology report noted to show fragmented amorphous contents. Stool studies are pending at present time. Home Medications Medication Instructions Recorded Confirmed Type Aspirin [Ecotrin] 81 mg PO QAM 12/28/14 07/25/16 History Glimepiride 4 mg PO BID W/MEALS 12/28/14 07/25/16 History Leuprolide IM (4 Month) [Lupron 30 mg IM ONCE 12/28/14 07/25/16 History [place] (4 Month)] Megestrol Acetate 20 mg PO DAILY 12/28/14 07/25/16 History Omeprazole 20 mg PO DAILY PRN 12/28/14 07/25/16 History Pioglitazone [Actos] 15 mg PO DAILY 12/28/14 07/25/16 History Topiramate 100 mg PO BID 12/28/14 07/25/16 History metFORMIN [Glucophage] 1,000 mg PO BID W/MEALS 12/28/14 07/25/16 History Cyclobenzaprine [Flexeril] 10 mg PO TID #14 tablet 01/29/16 07/25/16 Rx Diphenoxylate/Atrop 2.5-0.025 1 tablet PO Q6H PRN 01/29/16 07/25/16 History [Lomotil Tab] Enzalutamide [Xtandi] 160 mg PO DAILY 01/29/16 07/25/16 History Multivitamin [Multivitamins] 1 each PO DAILY 01/29/16 07/25/16 History Solifenacin [Vesicare] 5 mg PO DAILY 01/29/16 07/25/16 History Calcium Carbonate [Calcium] 1 tablet PO DAILY 07/22/16 07/25/16 History HYDROcodone/ACETAMIN 7.5-325 1 tablet PO Q6H PRN 07/22/16 07/25/16 History [Gallion 7.5-325] [place]-3 Fatty Acids [Fish Oil] 1 tablet PO DAILY 07/22/16 07/25/16 History Allergies Allergy/AdvReac Type Severity Reaction Status Date / Time Penicillins Allergy Unknown Unknown/Unable Verified 07/22/16 12:04 to obtain Tetanus Vaccines and Toxoid Allergy Unknown Unknown/Unable Verified 07/22/16 12: 04 [Tetanus Vaccines & Toxoid] to obtain Medical,Surgical,& Family Hx - Medical History Psychological: History of: Depression Neurology: History of: Migraine (OCCASIONALLY) No history of: Seizures HEENT: History of: Ear Problem (NUSRAT HEARING AIDS), Eye Problem (GLASSES) Endocrine: History of: Diabetes Mellitus (NIDDM) Respiratory: No history of: Respiratory Problems (FLU VAC-NO;PNEU VAC- YES. 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 DR LOWERY. 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 NUSRAT CARPAL TUNNEL), Spinal Surgery (NECK SURGERY 2002) - Family History Family History: Reports;: Family Heart Disease, Family Hypertension - Social History Smoking Status: Never smoker Frequency of Alcohol Use: None Type of Drug Use: None 12 point system: reviewed and no additional remarkable complaints except as stated - Constitutional Constitutional: Present: as per HPI - EENT Eyes: Present: as per HPI Ears: Present: as per HPI Nose, mouth and throat: Present: as per HPI - Cardiovascular Cardiovascular: Present: as per HPI - Respiratory Respiratory: Present: as per HPI - Gastrointestinal Gastrointestinal: Present: as per HPI - Genitourinary Genitourinary: Present: as per HPI - Musculoskeletal Musculoskeletal: Present: as per HPI - Neurological Neurological: Present: as per HPI - Psychiatric Psychiatric: Present: as per HPI - Endocrine Endocrine: Present: as per HPI - Hematologic/Lymphatic Hematologic/Lymphatic: Present: as per HPI Exam - Constitutional Vitals: Period Temp Pulse Resp BP Sys/Cordero Pulse Ox Last 24 Hr 97.1 F-98.3 F 52-74 16-20 105-127/52-83 98-100 General appearance: normal weight, no acute distress - Head Head exam: Present: normal inspection, normocephalic - Eye Eye exam: Present: other (Lids and conjunctivae unremarked). Absent: scleral icterus - ENT ENT exam: Present: normal exam, normal oropharynx - Neck Neck exam: Present: normal inspection - Respiratory Respiratory exam: Present: clear to auscultation bilaterally. Absent: rales, rhonchi, wheezes - Cardiovascular Cardiovascular exam: Present: regular rate and rhythm. Absent: diastolic murmur , JVD, systolic murmur - GI/Abdominal GI/Abdominal exam: Present: normal bowel sounds, soft. Absent: ascites, distended, mass, organomegaly, tenderness - Extremities Exam Extremities exam: Present: normal inspection, full ROM - Back Exam Back exam: Present: normal inspection - Neurological Exam Neurological exam: Present: alert, oriented X3 - Psychiatric Psychiatric exam: Present: normal affect, normal mood - Skin Skin exam: Present: normal color, warm, dry Results - Labs CBC & BMP: 08/04/16 06:22 08/04/16 06:22 Lab Results: I have reviewed the past 24 hour labs Quality Measures - VTE Contraindication to Pharmacological VTE Prophylaxis: Active Bleeding Specialty Discharge - Follow Up or Referrals Follow up with: Villa Mustafa MD [Physician] - 08/12/16 1:45 pm (Come to [place] on August 12, 2016 at 12:45 to have a KUB)
--- NOTE | 2016-08-04 13:51 | Hospitalist Progress Note ---
Assessment and Plan (1) Hematuria Status: Acute Assessment and plan: due to recent placement of antegrade right ureteral stent. -improved with irrigation Plan Urology is following continue to monitor cbc levels, will transfuse as needed Current Visit: Yes (2) Hydronephrosis of right kidney Status: Chronic Assessment and plan: Urology is following, they are considering a replacement of his right ureteral stent either antegrade or retrograde where the curl would be located in the right collecting system as well as distally in the bladder once the aspirin wears off his system Follow urology's recommendations Current Visit: No (3) CKD (chronic kidney disease) stage 3, GFR 30-59 ml/min Status: Chronic Assessment and plan: stable Current Visit: Yes (4) Diabetes mellitus Status: Acute Assessment and plan: controlled on current regime, HbA1c level-5.0 Current Visit: Yes Qualifiers: Diabetes mellitus type: type 2 Diabetes mellitus complication status: with hyperglycemia Diabetes mellitus intermediate manager insulin use: without intermediate manager use Qualified Code(s): E11.65 - Type 2 diabetes mellitus with hyperglycemia (5) History of prostate cancer Status: Chronic Assessment and plan: History for several years, Hem/Onc is following. Follow recommendations. Current Visit: Yes (6) Gram-negative bacteremia Status: Acute Assessment and plan: BC and UC grew E.Coli resistant to Levaquin Continue with Merrem , dc Levaquin, Current Visit: Yes (7) UTI (urinary tract infection) Status: Acute Assessment and plan: UC grew E. Coli resistant to Levaquin and Cipro -Continue IV Merrem, dc Levaquin Current Visit: Yes (8) Acute blood loss anemia Status: Acute Assessment and plan: Patient states a history of bloody stool. Plan GI consult will transfuse if Hb drops less than 8.0. Current Visit: Yes Hospitalist: Subjective Interval history: Patient was seen sitting up on a chair. He states a history of blood in his stool. Exam - Constitutional Vitals: Period Temp Pulse Resp BP Sys/Cordero Pulse Ox Last 24 Hr 97.1 F-98.3 F 52-74 16-20 105-127/52-83 98-100 General appearance: no acute distress - Head Head exam: Present: normal inspection - Respiratory Respiratory exam: Present: clear to auscultation bilaterally - Cardiovascular Cardiovascular exam: Present: regular rate and rhythm - GI/Abdominal GI/Abdominal exam: Present: normal bowel sounds - Extremities Exam Extremities exam: Present: normal inspection Results - Labs CBC & BMP: 08/04/16 06:22 08/04/16 06:22 Lab Results: I have reviewed the past 24 hour labs Quality Measures - VTE Contraindication to Pharmacological VTE Prophylaxis: Active Bleeding Specialty Discharge - Follow Up or Referrals Follow up with: Villa Mustafa MD [Physician] - 08/12/16 1:45 pm (Come to [place] on August 12, 2016 at 12:45 to have a KUB)
[2016-08-04] MEDS ORDERED: ZALEPLON 5 MG CAPSULE PO SCH (21:00)
[2016-08-05] MEDS: INSULIN LISPRO 100 UNIT/ML SUBCUT SCH ×2 (00:07→06:00)
[2016-08-05] MEDS: MEROPENEM 500 MG in SODIUM CHLORIDE 0.9% 100 ML IV SCH (00:52)
[2016-08-05 05:34] LABS: Basophils % 0.3 % (0.0-0.8); Eosinophils # 0.1 10*3/uL (0.0-0.87); Hematocrit 26.8 VOL% (42.0-52.0); Immature Granulocytes % 0.9 %; Immature Granulocytes Absolute 0.03 #; Lymphocytes # 0.7 10*3/uL (1.4-4.0); Lymphocytes % 21.1 % (21.2-54.2); Mean Corpuscular HGB Conc 33.6 GM/DL (32-36); Mean Corpuscular Hemoglobin 30 PG (27-34); Mean Platelet Volume 9.5 FL (9.6-12.0); Monocytes # 0.4 10*3/uL (0.11-0.8); Monocytes % 12.7 % (1.7-12.7); Neutrophils # 2.2 10*3/uL (1.4-7.4); Platelet Count 172 T/CUMM (130-400); Red Blood Count 3.01 MC/CUMM (3.8-5.5); White Blood Count 3.5 T/CUMM (4-12)
--- NOTE | 2016-08-05 07:25 | Oncology Progress Note ---
Oncology Subjective PN Interval history: Mr. Fields is tentatively scheduled to be discharged today. He should have an appointment to see me. He needs to be free of infection and off antibiotics for at least a week or possibly two before I consider further treatment of his prostate cancer. I am considering Taxotere or possibly Zytiga. He is progressed on Xtandi. As discussed with Dr. Mustafa, his long-term prognosis is not good. However, he looks better today than he has looked in about the last month and I am hoping that he will at least temporarily improve simply from treating this infection and relieving his bladder outlet obstruction. We will check to be certain he has been discharged tomorrow but this is probably my last progress note unless another complication arises. Exam - Constitutional Vitals: Period Temp Pulse Resp BP Sys/Cordero Pulse Ox Last 24 Hr 97.5 F-99.1 F 55-70 18-20 99-129/49-83 98-100 Results - Labs CBC & BMP: 08/05/16 04:54 08/04/16 06:22 Quality Measures - VTE Contraindication to Pharmacological VTE Prophylaxis: Active Bleeding Specialty Discharge - Follow Up or Referrals Follow up with: Trae Adan MD [Physician] - 09/08/16 9:45 am (You will have lab at 0945 and appointment to see Dr adan at 0945.) Villa Mustafa MD [Physician] - 08/12/16 1:45 pm (Come to [place] on August 12, 2016 at 12:45 to have a KUB)
--- NOTE | 2016-08-05 08:47 | Gastrointestinal Progress Note ---
Assessment and Plan (1) Hematochezia Status: Acute Assessment and plan: 08/05-hemoglobin improved at 9. No overt bleeding. Good appetite without reports of abdominal pain. Stool for occult blood still not collected. Plan an addendum to followed by Dr. Scherer peer 08/04-reports of hematochezia over the weekend with no associated symptoms. Last C scope 2013 with findings of diverticulosis. History of external radiation in the past as well as history of prostate cancer. Hemoglobin stable at 8.5. Check stool for occult blood. Plan an addendum to followed by Dr. Scherer. Current Visit: Yes Gastroenterology - PN: Subj Interval history: CC: Hematochezia Patient is seen awake and alert sitting up in chair with at bedside. He states that he had a good bowel movement this morning without any overt bleeding noted. His hemoglobin is improved slightly at 9. He denies any abdominal pain, nausea or vomiting. Abdomen is soft, nontender. Stool for occult blood was ordered however not collected. He is for possible discharge home today. ROS: Denies shortness of breath or chest pain Exam (Progress Note) - Constitutional Vitals: Period Temp Pulse Resp BP Sys/Cordero Pulse Ox Last 24 Hr 97.5 F-99.1 F 55-70 18-20 99-129/49-83 95-100 General appearance: normal weight, no acute distress - Head Head exam: Present: normal inspection, normocephalic - Eye Eye exam: Present: other (Lids and conjunctive are unremarkable). Absent: scleral icterus - ENT ENT exam: Present: normal exam, normal oropharynx - Neck Neck exam: Present: normal inspection - Respiratory Respiratory exam: Present: clear to auscultation bilaterally. Absent: rales, rhonchi, wheezes - Cardiovascular Cardiovascular exam: Present: regular rate and rhythm. Absent: diastolic murmur , JVD, systolic murmur - GI/Abdominal GI/Abdominal exam: Present: normal bowel sounds, soft. Absent: ascites, distended, mass, organomegaly, tenderness - Extremities Exam Extremities exam: Present: normal inspection, full ROM - Back Exam Back exam: Present: normal inspection - Neurological Exam Neurological exam: Present: alert, oriented X3 - Psychiatric Psychiatric exam: Present: normal affect, normal mood - Skin Skin exam: Present: normal color, warm, dry Results - Labs CBC & BMP: 08/05/16 04:54 08/04/16 06:22 Lab Results: I have reviewed the past 24 hour labs Specialty Discharge - Follow Up or Referrals Follow up with: Trae Adan MD [Physician] - 09/08/16 9:45 am (You will have lab at 0945 and appointment to see Dr adan at 0945.) Villa Mustafa MD [Physician] - 08/12/16 1:45 pm (Come to [place] on August 12, 2016 at 12:45 to have a KUB)
[2016-08-05] MEDS: SOLIFENACIN 5 MG TABLET PO SCH (09:03)
[2016-08-05] MEDS: TOPIRAMATE 100 MG TABLET PO SCH (09:04)
--- NOTE | 2016-08-05 10:22 | Discharge Summary ---
Hospital Course - Hospital Course Hospital Course: See discharge summary from the previous note dated 07/31/2016. Addendum was made today. - Time spent with patient Time with patient DS: Greater than 30 minutes (Time greater than 35minss) Diagnosis - Discharge Diagnosis (1) Hematuria Status: Acute (2) Hydronephrosis of right kidney Status: Chronic (3) CKD (chronic kidney disease) stage 3, GFR 30-59 ml/min Status: Chronic (4) Diabetes mellitus Status: Acute (5) History of prostate cancer Status: Chronic (6) Gram-negative bacteremia Status: Acute (7) UTI (urinary tract infection) Status: Acute (8) Acute blood loss anemia Status: Acute Specialty Discharge - Follow Up or Referrals Follow up with: Trae Adan MD [Physician] - 09/08/16 9:45 am (You will have lab at 0945 and appointment to see Dr adan at 0945.) Villa Mustafa MD [Physician] - 08/12/16 1:45 pm (Come to [place] on August 12, 2016 at 12:45 to have a KUB) Discharge Plan - Discharge Data Disposition: Disch To Home/Self Care Condition at Discharge: Stable Discharge Diet: diabetic diet Activity: resume usual activities as tolerated - Discharge Medications New Acetaminophen Tab [Tylenol Tab] 650 mg PO Q4H PRN #0 tablet PRN Reason: Fever, Headache, Mild Pain Sulfameth/Trimeth 800-160 Tab [Bactrim DS Tab] 1 tablet PO BID #10 tablet Continue Leuprolide IM (4 Month) [Lupron Depot (4 Month)] 30 mg IM ONCE Megestrol Acetate 20 mg PO DAILY Topiramate 100 mg PO BID Multivitamin [Multivitamins] 1 each PO DAILY Solifenacin [Vesicare] 5 mg PO DAILY Diphenoxylate/Atrop 2.5-0.025 [Lomotil Tab] 1 tablet PO Q6H PRN PRN Reason: Diarrhea Enzalutamide [Xtandi] 160 mg PO DAILY Cyclobenzaprine [Flexeril] 10 mg PO TID #14 tablet HYDROcodone/ACETAMIN 7.5-325 [[place]edar 7.5-325] 1 tablet PO Q6H PRN #20 PRN Reason: Pain [place]-3 Fatty Acids [Fish Oil] 1 tablet PO DAILY Calcium Carbonate [Calcium] 1 tablet PO DAILY Discontinued metFORMIN [Glucophage] 1,000 mg PO BID W/MEALS Glimepiride 4 mg PO BID W/MEALS Pioglitazone [Actos] 15 mg PO DAILY Omeprazole 20 mg PO DAILY PRN PRN Reason: Indigestion Aspirin [Ecotrin] 81 mg PO QAM - Follow Up or Referral Follow Up: Trae Adan MD [Physician] - 09/08/16 9:45 am (You will have lab at 0945 and appointment to see Dr adan at 0945.) Villa Mustafa MD [Physician] - 08/12/16 1:45 pm (Come to [place] on August 12, 2016 at 12:45 to have a KUB) - Forms/Instructions Instructions: Acute Hematuria (GEN) Additional Discharge Instructions: Follow with PCP in 1week Exam - Constitutional Vitals: Period Temp Pulse Resp BP Sys/Cordero Pulse Ox Last 24 Hr 97.5 F-99.1 F 55-70 18-20 99-129/49-83 95-100 General appearance: no acute distress - Head Head exam: Present: normal inspection - Neck Neck exam: Present: normal inspection - Respiratory Respiratory exam: Present: clear to auscultation bilaterally - Cardiovascular Cardiovascular exam: Present: regular rate and rhythm - GI/Abdominal GI/Abdominal exam: Present: normal bowel sounds - Extremities Exam Extremities exam: Present: normal inspection Discharge Results Procedures and tests throughout hospitalization: Pending Orders 07/31/16 09:50 Blood Culture Stat Labs on day of discharge: Labs from last 24 hours 08/05/16 08/05/16 08/05/16 05:40 04:54 00:07 WBC 3.5 L RBC 3.01 L Hgb 9.0 L Hct 26.8 L MCV 89.0 MCH 30 MCHC 33.6 RDW 14.0 Plt Count 172 MPV 9.5 L Neut % (Auto) 63.0 Lymph % (Auto) 21.1 L [place] % (Auto) 12.7 Eos % (Auto) 2.0 Baso % (Auto) 0.3 Neut # (Auto) 2.2 Lymph # (Auto) 0.7 L [place] # (Auto) 0.4 Eos # (Auto) 0.1 Baso # (Auto) 0.0 Immature Gran % 0.9 Nucleated RBC % 0.0 Immature Gran # 0.03 Nucleated RBCs # 0.00 POC Glucose 165 H 142 H 08/04/16 08/04/16 17:01 11:31 WBC RBC Hgb Hct MCV MCH MCHC RDW Plt Count MPV Neut % (Auto) Lymph % (Auto) [place] % (Auto) Eos % (Auto) Baso % (Auto) Neut # (Auto) Lymph # (Auto) [place] # (Auto) Eos # (Auto) Baso # (Auto) Immature Gran % Nucleated RBC % Immature Gran # Nucleated RBCs # POC Glucose 100 207 H Preliminary micro results at discharge 07/31/16 09:50 Blood Culture - Preliminary Blood No growth at 3 days DS: Provider Date of admission: 07/26/16 00:46 Primary care physician: Mario Alberto Moreno, Attending physician on admission: Trae Reeves MD Consults: 07/26/16 01:59 Consult to Physician [CONS] Routine Comment: hematuria after external-internal stent Consulting Provider: Trae Herrera Person Notified: rob Date Notified: 07/28/16 Time Notified: 10:59 07/26/16 11:15 Consult to Physician [CONS] Routine Comment: hematuria Consulting Provider: Villa Mustafa Person Notified: [place] Date Notified: 07/28/16 Time Notified: 09:23 Consult Notification Comment: Dr. Diaz made aware on 07/26/16 07/31/16 14:59 Consult to Physician [CONS] Routine Comment: patient sees [facility] Consulting Provider: Trae Adan Consult to Specialist Group: Oncology Person Notified: KAVYA Date Notified: 07/31/16 Time Notified: 15:06 08/02/16 11:23 Consult to Case Mgmt/Social Srvs [CONS] Routine Reason for Case Mgmt/Social Srvs: Home Health Consult Comment: need PT and w/c at home 08/02/16 11:24 Consult to Occupational Therapy [CONS] Routine Reason for Occupational Therapy: Weakness Consult to Physical Therapy [CONS] Routine Reason for Physical Therapy: Weakness 08/04/16 09:44 Consult to Physician [CONS] Routine Comment: blood in stool, anemia ?? scope Consulting Provider: Mario Alberto Scherer Person Notified: IRVIN YOO Date Notified: 08/04/16 Time Notified: 10:17 Consult Notification Comment: CALLED THE OFFICE LEFT VM ... AWARE Discharging clinician: Shadia Cochran MD
[2016-08-05 11:46] VITALS: BP 118/63
--- NOTE | 2016-08-05 11:48 | Urology Progress Note ---
Urology - PN: Subj Interval history: Patient is much happier with the sphincter. I think he was deactivating it and he states that he is staying away from the button. Hopefully that will help him and make him happier. He is going home. I will see him in about a week with a KUB. Exam - Constitutional Vitals: Period Temp Pulse Resp BP Sys/[place] Pulse Ox Last 24 Hr 97.5 F-99.1 F 55-70 18-20 99-129/49-83 95-100 Results - Labs CBC & BMP: 08/05/16 04:54 08/04/16 06:22 Specialty Discharge - Follow Up or Referrals Follow up with: Trae Adan MD [Physician] - 09/08/16 9:45 am (You will have lab at 0945 and appointment to see Dr adan at 0945.) Villa Mustafa MD [Physician] - 08/12/16 1:45 pm (Come to [place] on August 12, 2016 at 12:45 to have a KUB)
[2016-08-05] MEDS ORDERED: MEGESTROL 40 MG TABLET PO SCH (21:00)
== END 2016-08-05 13:34 | disposition home or self-care (01) | DRG 699 ==
LOC: N.ED 20:15 → SUATTDRO 07-26 00:46 → N.EDINP 07-26 00:46 → N.5E 07-26 01:21
PROVIDERS: ADMIT Student in an Organized Health Care Education/Training Program; ATTEND Internal Medicine

== ENCOUNTER 2016-10-02 19:06 | Inpatient (IN) ==
--- NOTE | 2016-10-02 20:02 | XRay Report ---
Portable chest. Indication: Altered mental status. Comparison: July 31, 2016. The heart is normal in size. The pulmonary vasculature is normal. The lung mckenzie are free of infiltrate. No pneumothorax or pleural effusion. Degenerative changes are noted within the spinal column and shoulders. Postsurgical changes of the lower cervical spine. Impression: No acute abnormality. PROCEDURE INTERPRETED AT [facility] DEPARTMENT OF RADIOLOGY Final Report Signed by: Dr. Noemi Yeboah
[2016-10-02 20:15] LABS: Basophils % 0.2 % (0.0-0.8); Eosinophils % 0.1 % (0.00-10.9); Hematocrit 32.7 VOL% (42.0-52.0); Hemoglobin 10.8 GM/DL (14.0-18.0); Immature Granulocytes % 0.6 %; Immature Granulocytes Absolute 0.07 #; Lymphocytes # 0.8 10*3/uL (1.4-4.0); Lymphocytes % 6.6 % (21.2-54.2); Mean Corpuscular Hemoglobin 29 PG (27-34); Mean Corpuscular Volume 87.9 FL (87-102); Monocytes # 1.2 10*3/uL (0.11-0.8); Monocytes % 9.5 % (1.7-12.7); Neutrophils # 10.3 10*3/uL (1.4-7.4); Platelet Count 234 T/CUMM (130-400); Red Blood Count 3.72 MC/CUMM (3.8-5.5); Red Cell Distribution Width 16.9 % (9.3-17.3); White Blood Count 12.4 T/CUMM (4-12)
[2016-10-02 20:22] LABS: INR 1.2; PT Patient Result 12.6 SECS
[2016-10-02 20:23] LABS: Ammonia < 10 UMOL/L (11-32)
[2016-10-02 20:27] LABS: Alanine Aminotransferase 19 U/L (16-61); Albumin 2.8 G/DL (3.4-5.0); Alkaline Phosphatase 55 U/L (45-117); Amylase 69 U/L (25-115); Aspartate Amino Transferase 20 U/L (0-37); Blood Urea Nitrogen 39 MG/DL (7-18); Calcium 9.1 MG/DL (8.5-10.1); Glucose 75 MG/DL (74-106); Lactic Acid 1.3 MMOL/L (0.4-2.0); Magnesium 1.7 MG/DL (1.8-2.4); Osmolality,Calculated 282.7 MOS/KG (273-304); Potassium 4.6 MMOL/L (3.5-5.1); Sodium 138 MMOL/L (136-145); Total Protein 6.6 G/DL (6.4-8.3); Troponin I Only < 0.015 NG/ML (0.00-0.045)
[2016-10-02 20:35] LABS: RBC,Urine 492 /HPF (0-4); WBC,Urine 15253 /HPF (0-6)
[2016-10-02 20:37] LABS: Apearance,Urine Turbid (Clear); Urine Color Yellow (Yellow)
[2016-10-02 20:38] LABS: Bilirubin,Urine Negative (Negative); Blood, Urine 50 mg/dL (Negative); Glucose,Urine (UA) Negative (Negative); Ketones,Urine Negative (Negative); Nitrite,Urine Positive (Negative); Protein,Urine >=500 MG/DL; Urine Urobilinogen < 2.0 EU/DL (0.2-1.0)
--- NOTE | 2016-10-02 21:47 | Emergency Department Note ---
IKelby Emily, am scribing for, and in the presence of, Abhijeet Berger MD 19: 49. Celine Salas Charles R, MD, personally performed the services described in this documentation, ascribed by Pallavi Lama in my presence, and it is both accurate and complete . Arrival - Arrival Chief Complaint: Abdominal / Flank Pain Stated Complaint: low grade fever, fell, milky urine ED Nursing Triage Note: patient was seen in er yesterday, given two units of blood.. now has low grade temp, foul odor to urine and milky color. right side abd pain, no n/v Mode of Arrival: Wheelchair Limitations: No Limitations Source: Patient, Family Time Seen by Provider: 10/02/16 19:21 - History of Present Illness HPI Narrative: Pt is a 75 y/o male who came to ED with c/o right sided abdomen, confusion, and low grade fever that started earlier today. Spouse states he took a bath earlier today and few minutes after getting dressed and sitting down, he reports to spouse that he needed to take a bath. Spouse states "he has a hard time getting his thoughts together." Pt also has milky, swelling in lower extremities, foul smelling urine and mild distention in belly with mild SOB. Pt was seen yesterday in ED and given 2 units of blood and fell leaving him with 2 rib fx on his right side. Pt's team of providers are Dr. Moreno, Dr. Mustafa, and Dr. Lowery. Spouse notes pt has recurring UTIs in which the abx gives him diarrhea due to his artificial spincter. Pt takes baby aspirin daily. PMHx of Prostate CA and upcoming port installation, hearing impairment, NIDDM, polyps, and hemorrhoids. Onset (ago): day(s) Consistency: constant Severity: moderate Severity scale (1-10): 5 Quality: aching Allergies/Adverse Reactions: Allergies Allergy/AdvReac Type Severity Reaction Status Date / Time Penicillins Allergy Unknown Unknown/Unable Verified 09/05/16 06:29 to obtain Tetanus Vaccines and Toxoid Allergy Unknown Unknown/Unable Verified 09/05/16 06: 29 [Tetanus Vaccines & Toxoid] to obtain sulfamethoxazole AdvReac Severe Diarrhea Verified 09/05/16 06:38 [From Bactrim] trimethoprim [From Bactrim] AdvReac Severe Diarrhea Verified 09/05/16 06:38 Home Medications: Home Medications Medication Instructions Recorded Confirmed Type Leuprolide IM (4 Month) [Lupron 30 mg IM Q120D 12/28/14 10/02/16 [place] (4 Month)] Megestrol Acetate 20 - 40 mg PO QAM 12/28/14 10/02/16 History Topiramate 100 mg PO BID 12/28/14 10/02/16 History Diphenoxylate/Atrop 2.5-0.025 1 tablet PO Q6H PRN 01/29/16 10/02/16 History [Lomotil Tab] Multivitamin [Multivitamins] 1 each PO QAM 01/29/16 10/02/16 History Calcium Carbonate [Calcium] 1 tablet PO QPM 07/22/16 10/02/16 History [place]-3 Fatty Acids [Fish Oil] 1 tablet PO QAM 07/22/16 10/02/16 History Aspirin [Ecotrin] 81 mg PO QAM 09/03/16 10/02/16 History Aspirin/Acetaminophen/Caffeine 1 tablet PO DAILY PRN 09/03/16 10/02/16 History [Excedrin Migraine Caplet] Glimepiride 4 mg PO QAM 09/03/16 10/02/16 History Metformin HCl 1,000 mg PO BID 09/03/16 10/02/16 History Omeprazole 20 mg PO DAILY PRN 09/03/16 10/02/16 History Pioglitazone [Actos] 15 mg PO QAM 09/03/16 10/02/16 History Solifenacin [Vesicare] 5 mg PO QAM 09/03/16 10/02/16 History HYDROcodone/ACETAMIN 5-325 [[place] 1 tablet PO Q6H PRN #12 tablet 10/01/16 Rx 5-325] Review of System - Review of System 12 point system: reviewed and no additional remarkable complaints except as stated - Review of System Constitutional: Present: fever (low grade). Absent: chills Respiratory: Present: respiratory distress (mild SOB). Absent: cough Cardiovascular: Present: edema (in lower extremities). Absent: chest pain, syncope Gastrointestinal: Present: abdominal pain (right side). Absent: nausea, vomiting, diarrhea Genitourinary male: Present: other (milky urine with foul smell) Musculoskeletal: Absent: leg pain, neck pain Skin: Absent: rash Neurological: Present: confusion (mild; hard to get thoughts together). Absent : headache Medical,Surgical,& Family Hx - Medical History Psychological: History of: Depression Neurology: History of: Migraine, Peripheral Neuropathy No history of: Seizures HEENT: History of: Ear Problem (NUSRAT HEARING AIDS), Eye Problem (GLASSES) Endocrine: History of: Diabetes Mellitus (NIDDM) Respiratory: No history of: Respiratory Problems (FLU VAC-NO;PNEU VAC- YES. 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 DR LOWERY. 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 NUSRAT CARPAL TUNNEL), Spinal Surgery (NECK SURGERY 2002) - Family History Family History: Reports;: Family Heart Disease, Family Hypertension - Social History Smoking Status: Never smoker Frequency of Alcohol Use: None Type of Drug Use: None Marital Status: Lives With:: Spouse Functional capacity: independent ambulation Exam Vital Signs: Vital Signs Temperature 99.5 F 10/02/16 19:08 Pulse Rate 92 H 10/02/16 19:08 Respiratory Rate 20 10/02/16 19:08 Blood Pressure 115/62 10/02/16 19:08 O2 Sat by Pulse Oximetry 99 10/02/16 19:08 - General General appearance: alert, in no apparent distress, other (hard of hearing; pugent urine smell) - Head Head exam: Present: atraumatic, normocephalic - Eye Eye exam: Present: PERRL, EOMI - ENT ENT exam: Present: mucous membranes moist. Absent: mucous membranes dry - Neck Neck exam: Present: full ROM, trachea midline. Absent: tenderness - Chest Chest inspection: Present: symmetric chest wall rise. Absent: tenderness - Respiratory Respiratory exam: Present: rales (bilaterally, at the bases). Absent: normal lung sounds bilaterally, accessory muscle use - Cardiovascular Cardiovascular exam: Present: tachycardia, normal heart sounds - Abdominal Exam Abdominal exam: Present: soft, distention (proturberant), other (squints when speaking secondary to pain from fx of 6th-7th ribs on right side on palpation). Absent: tenderness, guarding, rebound - Extremities Exam Extremities exam: Present: full ROM, pedal edema (+3). Absent: tenderness - Neurological Exam Neurological exam: Present: alert, oriented X3, CN II-XII intact. Absent: motor sensory deficit - Psychiatric Psychiatric exam: Present: normal affect, normal mood - Skin Skin exam: Present: warm, dry, pallor. Absent: normal color Course - Consultations Consultation #1: Dr Keen will admit pt for Dr. Lowery Time: 21:45 Results - Labs CBC & BMP: 10/02/16 19:42 10/02/16 19:42 Lab Results: I have reviewed the patients labs Labs: Laboratory Tests 10/02/16 19:42 WBC 12.4 H RBC 3.72 L Hgb 10.8 L Hct 32.7 L Plt Count 234 MPV 9.0 L Neut % (Auto) 83.0 H Lymph % (Auto) 6.6 L Neut # (Auto) 10.3 H Lymph # (Auto) 0.8 L [place] # (Auto) 1.2 H Laboratory Tests 10/02/16 10/02/16 19:42 19:42 Sodium 138 Potassium 4.6 Chloride 109 H Carbon Dioxide 17 L Anion Gap 16.6 H BUN 39 H Creatinine 2.10 H Magnesium 1.7 L Ammonia < 10 L Albumin 2.8 L Globulin 3.8 H Albumin/Globulin Ratio 0.7 L Urine Color Yellow Urine Appearance Turbid Urine pH 5.0 Ur Specific [place] 1.010 Urine Protein >=500 Urine Blood 50 Urine Nitrate Positive H Urine Urobilinogen < 2.0 H Urine Leukocytes 500 Urine RBC 492 Urine WBC 12586 Urine WBC Clumps Many - Diagnostic Findings Procedure: Chest x-ray: report reviewed by me (No acute abnormality.) Critical Care Time Critical Care Time: Yes Total Critical Care Time: 60 Disposition Clinical Impression: UTI (urinary tract infection), History of prostate cancer, Confusion, Sepsis, Renal insufficiency, Hematuria, Hemorrhagic cystitis Case discussed with: patient, patient's family Disposition: Still a Patient Time of Disposition: 21:47
[2016-10-02] MEDS ORDERED: LEVOFLOXACIN INJ 500 MG in PREMIX 1 EACH IV STA (21:48)
[2016-10-02] MEDS ORDERED: LEVOFLOXACIN INJ 100 ML IV ONE (22:09)
[2016-10-02] MEDS ORDERED: PROMETHAZINE INJ 25 MG in SODIUM CHLORIDE 0.9% 50 ML IV PRN (23:35)
[2016-10-02] MEDS ORDERED: MYLANTA/LIDO VISC 2:1 300 ML BOTTLE SWISH/SWAL PRN (23:35)
[2016-10-02] MEDS ORDERED: ACETAMINOPHEN PO PRN (23:35)
[2016-10-02] MEDS ORDERED: LOPERAMIDE 2 MG CAPSULE PO PRN ×2 (23:35)
[2016-10-02] MEDS ORDERED: ASPIRIN PO PRN (23:35)
[2016-10-02] MEDS ORDERED: ALPRAZolam 0.25 MG TABLET PO PRN (23:35)
[2016-10-02] MEDS ORDERED: LACTULOSE 20 GM/30 ML UDCUP PO PRN (23:35)
[2016-10-02] MEDS ORDERED: DEXTROSE 50% 25 GM/50 ML VIAL IV PRN (23:35)
[2016-10-02] MEDS ORDERED: guaiFENesin 200 MG/10 ML UDCUP PO PRN (23:35)
[2016-10-02] MEDS ORDERED: MYLANTA/LIDO VISC 2:1 300 ML BOTTLE SWISH/SPIT PRN (23:35)
[2016-10-02] MEDS ORDERED: diphenhydrAMINE CAP 25 MG CAPSULE PO PRN (23:35)
[2016-10-02] MEDS ORDERED: NON-FORMULARY MEDICATION (Omeprazole [Omeprazole] 20 MG) PO PRN (23:35)
[2016-10-02] MEDS ORDERED: ONDANSETRON 4 MG/2 ML VIAL IV PRN (23:35)
[2016-10-02] MEDS ORDERED: ACETAMINOPHEN 325 MG TABLET PO PRN (23:35)
[2016-10-02] MEDS ORDERED: traMADol 50 MG TABLET PO PRN (23:35)
[2016-10-02] MEDS ORDERED: DIPHENOXYLATE/ATROPINE 2.5-0.025 MG TABLET PO PRN (23:35)
[2016-10-02] MEDS ORDERED: BENZTROPINE 2 MG/2 ML AMP IV PRN (23:35)
[2016-10-02] MEDS ORDERED: GLUCAGON 1 MG VIAL IM PRN (23:35)
[2016-10-02] MEDS ORDERED: ALUMINUM/MAGNES/SIMETH MAX STR 30 ML UDCUP PO PRN (23:35)
[2016-10-02] MEDS ORDERED: TEMAZEPAM 7.5 MG CAPSULE PO PRN (23:35)
[2016-10-02] MEDS ORDERED: CAFFEINE PO PRN (23:35)
[2016-10-03] MEDS: SODIUM CHLORIDE 0.9% 1,000 ML IV SCH ×2 (00:10→17:10)
[2016-10-03 02:08] LABS: Albumin 2.3 G/DL (3.4-5.0); Bilirubin,Total 0.4 MG/DL (0.2-1.0); Calcium 8.5 MG/DL (8.5-10.1); Magnesium 1.7 MG/DL (1.8-2.4); Osmolality,Calculated 285.7 MOS/KG (273-304); Potassium 4.1 MMOL/L (3.5-5.1); Total Protein 5.7 G/DL (6.4-8.3); Uric Acid 6.2 MG/DL (3.5-7.2)
[2016-10-03 02:16] LABS: INR 1.3; PT Patient Result 13.4 SECS
[2016-10-03 02:29] LABS: Basophils % 0.1 % (0.0-0.8); Eosinophils % 0.2 % (0.00-10.9); Hematocrit 28.3 VOL% (42.0-52.0); Hemoglobin 9.4 GM/DL (14.0-18.0); Immature Granulocytes % 0.5 %; Immature Granulocytes Absolute 0.05 #; Lymphocytes # 0.7 10*3/uL (1.4-4.0); Lymphocytes % 7.3 % (21.2-54.2); Mean Corpuscular HGB Conc 33.2 GM/DL (32-36); Mean Corpuscular Hemoglobin 29 PG (27-34); Mean Corpuscular Volume 87.6 FL (87-102); Mean Platelet Volume 9.4 FL (9.6-12.0); Monocytes % 9.8 % (1.7-12.7); Neutrophils # 8.1 10*3/uL (1.4-7.4); Neutrophils % 82.1 % (38.7-73.9); Platelet Count 204 T/CUMM (130-400); Red Blood Count 3.23 MC/CUMM (3.8-5.5); Red Cell Distribution Width 16.8 % (9.3-17.3); White Blood Count 9.9 T/CUMM (4-12)
[2016-10-03] MEDS: INSULIN REGULAR 100 UNIT/ML SUBCUT SCH ×4 (04:40→20:56)
--- NOTE | 2016-10-03 07:31 | XRay Report ---
Exam: XR chest 2V Date: 10/03/2016 4:00 AM Indication: Shortness of breath Comparison: 10/02/2016 Technical: PA lateral Findings: The heart is normal in size. Anterior Lateral marginal osteophytes are present. Previous cervical fusion noted. No obvious consolidating infiltrates or effusions. Mediastinum is otherwise intact. Ossification of costochondral cartilages. Impression: 1. No acute cardiopulmonary pathology 2. Previous cervical fusion 3. Degenerative spondylosis change thoracic lumbar spine PROCEDURE INTERPRETED AT [facility] DEPARTMENT OF RADIOLOGY Final Report Signed by: Dr. Mario Alberto Dyer
--- NOTE | 2016-10-03 08:29 | Oncology History&Physical ---
History of Present Illness Chief complaint: Fever, urinary tract infection, prostate cancer History of present illness: Mr. Fields is a 75 year old male that I have been following for prostate cancer that is currently being treated with hormone therapy. He was admitted through the emergency room with a serious urinary tract infection with weakness and prostration and also with severe right chest wall pain that he tells me is related to a fall on September 30. He may or may not have rib fractures from it. His illness has been complicated by the fact that he has bladder outlet obstruction requiring a right ureteral stent to be placed. According to Villa Mustafa MD, the left ureter is open. He has been treated recently with Xtandi and has a rising PSA although his comprehensive metabolic profile is surprisingly normal. This is probably because he has pelvic involvement by the tumor but does not have extensive bone involvement and may not have any significant bone involvement at all. I was in the process of switching him to Taxotere or possibly Jevtana and discontinuing the Xtandi. I ordered 2 units of packed red cells to be transfused on September 30. He has become progressively weaker in spite of the blood transfusion.. The patient had been receiving Xtandi as part of the treatment for his prostate cancer but I have held it. I have discussed patient's case with Dr. Villa Mustafa. The patient has progression of his disease in his pelvis and very little evidence of bony metastases. Dr. Mustafa feels that the patient's prognosis is extremely poor. On September 30, the patient came for blood. He was walking down the cheema on the first floor when he fell. He apparently refused to go to the emergency room at that time. He came in and received the 2 units of packed red cells. According to the emergency room physician, the patient sustained 2 rib fractures on the right side but I cannot visualize them and they are not reported by the radiologist. I am getting an x-ray for rib detail. He is admitted with increasing confusion and weakness. Past medical history: Allergies: Penicillin, tetanus vaccine and tetanus toxoid.` Diabetes mellitus Chronic renal failure Osteoarthritis GERD Bladder surgery 2012 Neck surgery 2003 Carpal tunnel surgery in the past Colon polyps diagnosed in the past Family history is positive for cancer of unknown type in his grandfather and coronary artery disease in his mother as well as his father Social history: He never smoked and he never used alcohol Review of systems: Constitutional: Positive for change in appetite, decreased activity, fatigue, generalized weakness and weight loss. ENT: Positive for severe hearing loss. No odynophagia, pharyngitis or eye problems. Pulmonary: Positive for increasing dyspnea without pleurisy or hemoptysis or significant chest pain Cardio: Positive for increasing pedal edema. Negative for angina or syncope or palpitations. GI: Positive for loss of appetite, diarrhea and hemorrhoids. Neuro: Positive headaches negative for focal weakness or stroke. Psychiatric: Positive for increasing confusion. Hematologic: Positive for anemia requiring blood transfusion. Also positive for leukopenia. Skin: Positive for increasing skin pallor. Negative for new skin lesions. Physical examination: General: The patient appears to be chronically ill and getting weaker fairly rapidly. Eyes: Normal lids and conjunctivae. ENT: Moderately poor dentition. No oral mucosa and pharynx are normal. His hearing is normal. Neck: No masses. The trachea is midline. The thyroid is normal. Lungs: Relatively normal breath sounds with normal respiratory effort and symmetric chest motion with respiration. No chest wall tenderness. The lungs are clear. He is tender over the right lower lateral chest wall. I see no bruises and I can palpate no crepitance. Cardiovascular: His heart rhythm is regular without murmur, gallop or rub. There is no jugular venous distention, clubbing or cyanosis. He has 1-2+ edema of the right leg and possibly trace edema of the left leg Abdomen:No ascites, masses or organomegaly. Musculoskeletal: There is no focal muscle atrophy or bone or joint deformity. He has generalized muscle weakness. Neurologic: Cranial nerves II through XII are intact. There are no focal neurologic deficits. Psychiatric: He appears to be oriented to time, place, person and situation. Some of his answers to questions or not correct because he is hard of hearing. Nodes: I palpate no submandibular, cervical or supraclavicular adenopathy. Impression: Metastatic prostate cancer primarily confined to the soft tissues of the lower abdomen and pelvis significant urinary tract infection with possible urosepsis refractory prostate cancer that has progressed after hormone therapy, and after Xtandi. We're considering Taxotere. Anemia requiring blood transfusion. Severe generalized weakness and debilitation due to progression of the prostate cancer. Chronic renal failure secondary to prostate cancer. Malnutrition. Lab work today includes white cell count of 9900 with a hemoglobin of 9.4 and a platelet count 240,000. INR done today is 1.3. The comprehensive metabolic profile today includes a serum creatinine of 2.0 with a urea nitrogen of 38. His serum albumin is 2.3, reflecting malnutrition. The plan is to treat him with IV fluids and antibiotics over the weekend and consult surgery for Mediport placement. We will probably proceed with Taxotere next week. However, this patient long-term prognosis is very poor. Home Medications Medication Instructions Recorded Confirmed Type Leuprolide IM (4 Month) [Lupron 30 mg IM Q120D 12/28/14 10/03/16 [place] (4 Month)] Megestrol Acetate 20 - 40 mg PO QAM 12/28/14 10/03/16 History Topiramate 100 mg PO BID 12/28/14 10/03/16 History Diphenoxylate/Atrop 2.5-0.025 1 tablet PO Q6H PRN 01/29/16 10/03/16 History [Lomotil Tab] Multivitamin [Multivitamins] 1 each PO QAM 01/29/16 10/03/16 History Calcium Carbonate [Calcium] 1 tablet PO QPM 07/22/16 10/03/16 History [place]-3 Fatty Acids [Fish Oil] 1 tablet PO QAM 07/22/16 10/03/16 History Aspirin [Ecotrin] 81 mg PO QAM 09/03/16 10/03/16 History Aspirin/Acetaminophen/Caffeine 1 tablet PO DAILY PRN 09/03/16 10/03/16 History [Excedrin Migraine Caplet] Glimepiride 4 mg PO QAM 09/03/16 10/03/16 History Metformin HCl 1,000 mg PO BID 09/03/16 10/03/16 History Omeprazole 20 mg PO DAILY PRN 09/03/16 10/03/16 History Pioglitazone [Actos] 15 mg PO QAM 09/03/16 10/03/16 History Solifenacin [Vesicare] 5 mg PO QAM 09/03/16 10/03/16 History Allergies Allergy/AdvReac Type Severity Reaction Status Date / Time Penicillins Allergy Unknown Unknown/Unable Verified 09/05/16 06:29 to obtain Tetanus Vaccines and Toxoid Allergy Unknown Unknown/Unable Verified 09/05/16 06: 29 [Tetanus Vaccines & Toxoid] to obtain sulfamethoxazole AdvReac Severe Diarrhea Verified 09/05/16 06:38 [From Bactrim] trimethoprim [From Bactrim] AdvReac Severe Diarrhea Verified 09/05/16 06:38 Medical,Surgical,& Family Hx - Medical History Psychological: History of: Depression Neurology: History of: Migraine, Peripheral Neuropathy No history of: Seizures HEENT: History of: Ear Problem (NUSRAT HEARING AIDS), Eye Problem (GLASSES) Endocrine: History of: Diabetes Mellitus (NIDDM) Respiratory: No history of: Respiratory Problems (FLU VAC-NO;PNEU VAC- YES. 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 DR LOWERY. 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 NUSRAT CARPAL TUNNEL), Spinal Surgery (NECK SURGERY 2002) - Family History Family History: Reports;: Family Heart Disease, Family Hypertension - Social History Smoking Status: Never smoker Frequency of Alcohol Use: None Type of Drug Use: None Exam - Constitutional Vitals: Period Temp Pulse Resp BP Sys/Cordero Pulse Ox Last 24 Hr 96.8 F-99.5 F 78-93 18-20 92-122/53-62 96-99 Results - Labs CBC & BMP: 10/03/16 01:03 10/03/16 01:03
[2016-10-03] MEDS: TOPIRAMATE 100 MG TABLET PO SCH ×2 (09:09→20:52)
[2016-10-03] MEDS: PIOGLITAZONE 15 MG TABLET PO SCH (09:09)
[2016-10-03] MEDS: PANTOPRAZOLE 40 MG VIAL IV SCH (09:09)
[2016-10-03] MEDS: SOLIFENACIN 5 MG TABLET PO SCH (09:09)
[2016-10-03] MEDS: ASPIRIN EC 81 MG TABLET PO SCH (09:09)
[2016-10-03] MEDS: MULTIVITAMIN (CENTRUM) TABLET PO SCH (09:09)
[2016-10-03] MEDS: GLIMEPIRIDE 4 MG TABLET PO SCH (09:09)
[2016-10-03] MEDS: OMEGA 3 ACID ETHYL ESTERS 1 GM CAPSULE PO SCH (09:09)
[2016-10-03] MEDS ORDERED: SODIUM CHLORIDE 0.9% 250 ML IV PRN (09:37)
[2016-10-03] MEDS ORDERED: LEVOFLOXACIN INJ 500 MG in PREMIX 1 EACH IV SCH (10:00)
--- NOTE | 2016-10-03 11:07 | Ultrasound Report ---
Exam: US venous doppler LE BI Indication: Edema Comparison 01/07/2009 Date: 10/03/2016 9:49 AM Findings: Grayscale color flow duplex/Doppler imaging and spectral analysis waveform imaging was performed with real-time ultrasound with image stored and captured. The right common femoral, superficial femoral, popliteal saphenous veins are patent with normal augmentation and compression. There is no evidence of popliteal or Ramirez's cyst. Normal wave form analysis present. Normal color flow. 3 cm lymph node in the right inguinal region The left common femoral, superficial femoral, popliteal saphenous veins are patent with normal augmentation and compression. There is no evidence of popliteal or Ramirez's cyst. Normal wave form analysis present. Normal color flow Impression: 1. No DVT PROCEDURE INTERPRETED AT [facility] DEPARTMENT OF RADIOLOGY Final Report Signed by: Dr. Mario Alberto Dyer
--- NOTE | 2016-10-03 11:19 | XRay Report ---
Right rib detail. Indication: Right lower anterior chest wall pain. Markers are placed over the areas of tenderness, corresponding to lower anterior right ribs. No evidence of acute fracture. The osseous structures are diffusely demineralized. Degenerative changes are noted within the spinal column. Postsurgical changes in the cervical spine. Degenerative changes of the right shoulder. Impression: No rib fracture is seen. PROCEDURE INTERPRETED AT [facility] DEPARTMENT OF RADIOLOGY Final Report Signed by: Dr. Noemi Yeboah
--- NOTE | 2016-10-03 11:56 | General Surgery Consult Note ---
Assessment and Plan - Time spent with patient Time spent with patient: Greater than 30 minutes (1) Prostate cancer Status: Acute Current Visit: No (2) Diabetes mellitus Status: Acute Assessment and plan: 75-year-old male with history of diabetes and prostate cancer admitted by Dr. Lowery on 10/03/2016 with progression of the disease, UTI, and severe weakness. Dr. Lowery is requesting Dr. Vale to Place Mediport for chemotherapy. Patient has eaten breakfast this morning and he is receiving blood this weekend. We will go ahead and schedule this to be placed in the OR on Thursday morning by Dr. Vale. Dr. Vale has seen and examined patient. Current Visit: No Qualifiers: Diabetes mellitus type: type 2 Diabetes mellitus complication status: with hyperglycemia Diabetes mellitus correction insulin use: without local company intermodal truck driver use Qualified Code(s): E11.65 - Type 2 diabetes mellitus with hyperglycemia (3) UTI (urinary tract infection) Status: Acute Current Visit: Yes (4) Renal insufficiency Status: Acute Current Visit: Yes History of Present Illness Chief complaint: Weakness History of present illness: Mr. Fields is a 75 year old male admitted by Dr. Lowery through the emergency room on 10/03/2016 with a serious urinary tract infection with weakness and prostration. Is also having severe right chest wall pain from a fall on September 30. Patient also has a bladder outlet obstruction requiring a right ureteral stent to be placed by Dr. Mustafa. He is also receiving 2 units of packed red cells and Dr. Lowery switching up his chemo medications. He is concerned about the progression of the disease in the pelvis with little evidence of bony metastases. Dr. Vale is been consulted for placement of Mediport. Home Medications Medication Instructions Recorded Confirmed Type Leuprolide IM (4 Month) [Lupron 30 mg IM Q120D 12/28/14 10/03/16 History Depot (4 Month)] Megestrol Acetate 20 - 40 mg PO QAM 12/28/14 10/03/16 History Topiramate 100 mg PO BID 12/28/14 10/03/16 History Diphenoxylate/Atrop 2.5-0.025 1 tablet PO Q6H PRN 01/29/16 10/03/16 History [Lomotil Tab] Multivitamin [Multivitamins] 1 each PO QAM 01/29/16 10/03/16 History Calcium Carbonate [Calcium] 1 tablet PO QPM 07/22/16 10/03/16 History [place]-3 Fatty Acids [Fish Oil] 1 tablet PO QAM 07/22/16 10/03/16 History Aspirin [Ecotrin] 81 mg PO QAM 09/03/16 10/03/16 History Aspirin/Acetaminophen/Caffeine 1 tablet PO DAILY PRN 09/03/16 10/03/16 History [Excedrin Migraine Caplet] Glimepiride 4 mg PO QAM 09/03/16 10/03/16 History Metformin HCl 1,000 mg PO BID 09/03/16 10/03/16 History Omeprazole 20 mg PO DAILY PRN 09/03/16 10/03/16 History Pioglitazone [Actos] 15 mg PO QAM 09/03/16 10/03/16 History Solifenacin [Vesicare] 5 mg PO QAM 09/03/16 10/03/16 History Allergies Allergy/AdvReac Type Severity Reaction Status Date / Time Penicillins Allergy Unknown Unknown/Unable Verified 09/05/16 06:29 to obtain Tetanus Vaccines and Toxoid Allergy Unknown Unknown/Unable Verified 09/05/16 06: 29 [Tetanus Vaccines & Toxoid] to obtain sulfamethoxazole AdvReac Severe Diarrhea Verified 09/05/16 06:38 [From Bactrim] trimethoprim [From Bactrim] AdvReac Severe Diarrhea Verified 09/05/16 06:38 Medical,Surgical,& Family Hx - Medical History Psychological: History of: Depression Neurology: History of: Migraine, Peripheral Neuropathy No history of: Seizures HEENT: History of: Ear Problem (NUSRAT HEARING AIDS), Eye Problem (GLASSES) Endocrine: History of: Diabetes Mellitus (NIDDM) Respiratory: No history of: Respiratory Problems (FLU VAC-NO;PNEU VAC- YES. 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 DR LOWERY. 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 NUSRAT CARPAL TUNNEL), Spinal Surgery (NECK SURGERY 2002) - Family History Family History: Reports;: Family Heart Disease, Family Hypertension - Social History Smoking Status: Never smoker Frequency of Alcohol Use: None Type of Drug Use: None Exam - Constitutional Vitals: Period Temp Pulse Resp BP Sys/Cordero Pulse Ox Last 24 Hr 96.8 F-99.5 F 78-93 18-20 92-122/53-62 96-99 Exam: 75-year-old male, no acute distress, alert oriented Chest is clear CV regular rate and rhythm Abdomen soft and nontender Extremities no edema Results - Labs CBC & BMP: 10/03/16 01:03 10/03/16 01:03
--- NOTE | 2016-10-03 13:04 | Urology Consultation ---
Assessment and Plan - Time spent with patient Time spent with patient: Greater than 30 minutes (1) Prostate CA Status: Acute Assessment and plan: Planning to leave the Segundo until Thursday remove it. We will keep the sphincter deactivated for now. I will order an ultrasound to evaluate his hydronephrosis. I will be back on Thursday Current Visit: No (2) Hydronephrosis of right kidney Status: Chronic Current Visit: No History of Present Illness - Data of Consult Patient: known to practice within the last 3 years Consult date: 10/03/16 Requesting Physician: Trae Adan - Consult Narrative Reason for consult: UTI, prostate cancer History of present illness: Mr. Fields is a 75 year old male who is well known to me. 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 He has artificial urinary sphincter in. He has had multiple urinary tract infections. He has had recently a couple courses of antibiotics. He presented to emergency room with confusion and thought he had a UTI. His urine culture he was admitted and placed on antibiotics. His creatinine is been stable around 2. I will order a ultrasound to see if we have hydronephrosis. He has a catheter in and I discussed deactivating with the emergency room physician. When I came by the sphincter was not and I repeat not deactivated. I deactivated. I had a long discussion with Mr. Fields about procedures of activating deactivating the sphincter and I am not sure he really understands this. I am surprised with this considering he has had it for a year and I have explained the mechanisms in the workings of this numerous times. He had a bladder scan that showed almost 500 cc in her bladder and I am not sure that he he is doing this properly and this is probably the main reason why is having recurrent urinary tract infections. He does have an indwelling and even though the sphincter is deactivated, we do not need to leave a Segundo in him more than 2 or 3 days. I have discussed this with the nursing service and our plan is to remove it on Thursday. I will be back on Thursday to discuss all this again. I did have a conference with the on the telephone. CC: Trae Adan MD - Home Medications and Allergies Home Medications: Home Medications Medication Instructions Recorded Confirmed Type Leuprolide IM (4 Month) [Lupron 30 mg IM Q120D 12/28/14 10/03/16 History Depot (4 Month)] Megestrol Acetate 20 - 40 mg PO QAM 12/28/14 10/03/16 History Topiramate 100 mg PO BID 12/28/14 10/03/16 History Diphenoxylate/Atrop 2.5-0.025 1 tablet PO Q6H PRN 01/29/16 10/03/16 History [Lomotil Tab] Multivitamin [Multivitamins] 1 each PO QAM 01/29/16 10/03/16 History Calcium Carbonate [Calcium] 1 tablet PO QPM 07/22/16 10/03/16 History [place]-3 Fatty Acids [Fish Oil] 1 tablet PO QAM 07/22/16 10/03/16 History Aspirin [Ecotrin] 81 mg PO QAM 09/03/16 10/03/16 History Aspirin/Acetaminophen/Caffeine 1 tablet PO DAILY PRN 09/03/16 10/03/16 History [Excedrin Migraine Caplet] Glimepiride 4 mg PO QAM 09/03/16 10/03/16 History Metformin HCl 1,000 mg PO BID 09/03/16 10/03/16 History Omeprazole 20 mg PO DAILY PRN 09/03/16 10/03/16 History Pioglitazone [Actos] 15 mg PO QAM 09/03/16 10/03/16 History Solifenacin [Vesicare] 5 mg PO QAM 09/03/16 10/03/16 History Allergies/Adverse Reactions: Allergies Allergy/AdvReac Type Severity Reaction Status Date / Time Penicillins Allergy Unknown Unknown/Unable Verified 09/05/16 06:29 to obtain Tetanus Vaccines and Toxoid Allergy Unknown Unknown/Unable Verified 09/05/16 06: 29 [Tetanus Vaccines & Toxoid] to obtain sulfamethoxazole AdvReac Severe Diarrhea Verified 09/05/16 06:38 [From Bactrim] trimethoprim [From Bactrim] AdvReac Severe Diarrhea Verified 09/05/16 06:38 12 point system: reviewed and no additional remarkable complaints except as stated - Constitutional Constitutional: Present: lethargy, malaise Exam - Constitutional Vitals: Period Temp Pulse Resp BP Sys/Cordero Pulse Ox Last 24 Hr 96.8 F-99.5 F 69-93 18-20 92-122/53-62 96-100 - Genitourinary Genitourinary: scrotum without lesions, cysts, edema or rash, penis with no lesions or discharge, other (Sphincter pump in appropriate location) - Extremities Exam Extremities exam: Present: edema Results - Labs CBC & BMP: 10/03/16 01:03 10/03/16 01:03 Lab Results: I have reviewed the past 24 hour labs
[2016-10-03] MEDS: MEGESTROL 400 MG/10 ML UDCUP PO SCH (16:50)
[2016-10-03] MEDS: CALCIUM CARBONATE CHEW 500 MG TABLET PO SCH (19:43)
[2016-10-03] MEDS: metFORMIN 500 MG TABLET PO SCH (20:51)
[2016-10-04 02:44] LABS: Basophils % 0.1 % (0.0-0.8); Eosinophils # 0.2 10*3/uL (0.0-0.87); Eosinophils % 2.6 % (0.00-10.9); Hematocrit 32.5 VOL% (42.0-52.0); Hemoglobin 10.7 GM/DL (14.0-18.0); Immature Granulocytes % 0.6 %; Immature Granulocytes Absolute 0.05 #; Lymphocytes # 1.1 10*3/uL (1.4-4.0); Lymphocytes % 12.9 % (21.2-54.2); Mean Corpuscular HGB Conc 32.9 GM/DL (32-36); Mean Corpuscular Hemoglobin 29 PG (27-34); Mean Corpuscular Volume 87.8 FL (87-102); Mean Platelet Volume 9.4 FL (9.6-12.0); Monocytes # 0.4 10*3/uL (0.11-0.8); Monocytes % 4.8 % (1.7-12.7); Neutrophils # 6.7 10*3/uL (1.4-7.4); Platelet Count 190 T/CUMM (130-400); Red Cell Distribution Width 16.6 % (9.3-17.3); White Blood Count 8.5 T/CUMM (4-12)
[2016-10-04 03:18] LABS: Albumin 2.1 G/DL (3.4-5.0); Bilirubin,Total 0.6 MG/DL (0.2-1.0); Calcium 8.2 MG/DL (8.5-10.1); Osmolality,Calculated 287.3 MOS/KG (273-304); Potassium 4.1 MMOL/L (3.5-5.1); Total Protein 5.3 G/DL (6.4-8.3)
[2016-10-04 03:34] LABS: Band Neutrophils 1 % (0-10); Eosinophils 1 % (0-10); Lymphocytes 8 % (20-55); Metamyelocytes 1 %; Segmented Neutrophils 83 % (50-85)
[2016-10-04 03:36] LABS: Burr Cells 1+; Ovalocytes 1+; Platelet Estimate Normal; Total Cells Counted 100
[2016-10-04] MEDS: INSULIN REGULAR 100 UNIT/ML SUBCUT SCH ×4 (08:00→21:26)
[2016-10-04] MEDS: ASPIRIN EC 81 MG TABLET PO SCH (09:07)
[2016-10-04] MEDS: SOLIFENACIN 5 MG TABLET PO SCH (09:07)
[2016-10-04] MEDS: OMEGA 3 ACID ETHYL ESTERS 1 GM CAPSULE PO SCH (09:07)
[2016-10-04] MEDS: MULTIVITAMIN (CENTRUM) TABLET PO SCH (09:07)
[2016-10-04] MEDS: TOPIRAMATE 100 MG TABLET PO SCH ×2 (09:07→21:10)
[2016-10-04] MEDS: MEGESTROL 400 MG/10 ML UDCUP PO SCH (09:08)
[2016-10-04] MEDS: PANTOPRAZOLE 40 MG VIAL IV SCH (09:08)
[2016-10-04] MEDS: PIOGLITAZONE 15 MG TABLET PO SCH (12:07)
[2016-10-04] MEDS: GLIMEPIRIDE 4 MG TABLET PO SCH (12:07)
[2016-10-04] MEDS: metFORMIN 500 MG TABLET PO SCH (12:08)
[2016-10-04] MEDS: SODIUM CHLORIDE 0.9% 1,000 ML IV SCH ×2 (14:25→20:05)
[2016-10-04] MEDS: MAGNESIUM HYDROXIDE SUSP 30 ML UDCUP PO PRN ×2 (14:54→21:10)
--- NOTE | 2016-10-04 15:11 | Oncology Progress Note ---
Assessment and Plan (1) Prostate cancer Status: Acute Assessment and plan: castrate-resistant, metastatic prostate cancer despite ADT. Planning transition to Taxotere with chemo-port placement scheduled for Thursday -- had GPC in pairs and chains in one of two blood cultures drawn 10/02. Suspected to be a contaminant. Will repeat now Current Visit: No (2) E. coli UTI Status: Acute Assessment and plan: Susceptibilities have returned and is resistant to quinolones. Is susceptible to penicillins, carbapenems, aminoglycosides, and bactrim. -- has just sustained SHARI on CKD. Would not want to use Bactrim at this point -- has history of penicillin allergy. States reaction was in 1963. Took an antibiotic and then had a "wild-man" reaction. States his physician watched him closely to monitor for anaphylaxis. Does not recall the exact symptoms he had, whether it was rash or swelling or hives. Does not recall dyspnea and certainly wasn't hospitalized for anaphylaxis. -- as the above allergy is quite vague, will hold off on any PCN, Cephalosporin , and Carbapenem at present. Could potentially use if allergy if further characterized and felt to be benign -- d/c levaquin. Start Aztreonam 1 gram Q12H now Current Visit: Yes (3) CKD (chronic kidney disease) stage 3, GFR 30-59 ml/min Status: Chronic Assessment and plan: Improving on fluids Current Visit: No (4) Metabolic acidosis, normal anion gap (NAG) Status: Acute Assessment and plan: Had diarrhea several days ago. Currently constipated. -- suspect patient may have a type 2 renal tubular acidosis. Has been on fluids for days now, so I suspect urine electrolyte studies would not be very useful -- may need some bicarbonate supplementation. Continue to monitor Current Visit: Yes (5) Diabetes mellitus Status: Chronic Assessment and plan: Patient states he was not taking Actos, but later identified it as a home medication. Is indeed taking Metformin, Amaryl, and Actos and reports last A1c was < 6. -- hypoglycemic this am. Suspected due to SHARI that is improving -- d/c all three PO glycemic agents and will monitor for hyperglycemia and use insulin as needed. Current Visit: No Qualifiers: Diabetes mellitus type: type 2 Diabetes mellitus complication status: with hyperglycemia Diabetes mellitus halfway insulin use: without halfway use Qualified Code(s): E11.65 - Type 2 diabetes mellitus with hyperglycemia (6) Hydronephrosis of right kidney Status: Chronic Assessment and plan: Evaluated by Urology. Plan to keep hardwick catheter in place for now. Current Visit: No Oncology Subjective PN Interval history: Feeling relatively well today. States he has been walking around his room but has not been out of the room. Denies fever, chills, chest pain, dyspnea, nausea , anorexia. Denies any outward blood loss. - was hypoglycemic this am. States he has not taken Pioglitazone in a while. - also states he is taking 90 mg of Megace at home and is concerned about the increased dose here in the hospital Exam - Constitutional Vitals: Period Temp Pulse Resp BP Sys/Cordero Pulse Ox Last 24 Hr 96.7 F-98.6 F 62-85 18-20 100-177/50-70 92-100 Exam: elderly white male, lying back in bed comfortably - Eye Eye Exam: Present: other (pink palpebral conjunctivae). Absent: scleral icterus - Respiratory Respiratory exam: Present: CTAB. Absent: accessory muscle use - Cardiovascular Cardiovascular exam: Present: RRR. Absent: JVD - GI/Abdominal GI/Abdominal exam: Present: tenderness (mild tenderness in suprapubic region), soft. Absent: distended - Neurological Exam Neurological exam: Present: alert, oriented X3. Absent: CN II-XII intact - Psychiatric Psychiatric exam: Present: normal affect, normal mood - Skin Skin exam: Present: warm, dry Results - Labs CBC & BMP: 10/04/16 01:46 10/04/16 01:46
[2016-10-04] MEDS: AZTREONAM 1,000 MG in SODIUM CHLORIDE 0.9% 100 ML IV SCH (17:48)
[2016-10-04] MEDS: CALCIUM CARBONATE CHEW 500 MG TABLET PO SCH (21:10)
[2016-10-05] MEDS: AZTREONAM 1,000 MG in SODIUM CHLORIDE 0.9% 100 ML IV SCH ×2 (04:00→16:58)
[2016-10-05 05:51] LABS: Basophils % 0.2 % (0.0-0.8); Eosinophils # 0.2 10*3/uL (0.0-0.87); Eosinophils % 4.1 % (0.00-10.9); Hematocrit 33.4 VOL% (42.0-52.0); Hemoglobin 11.1 GM/DL (14.0-18.0); Immature Granulocytes % 0.5 %; Immature Granulocytes Absolute 0.03 #; Lymphocytes # 0.9 10*3/uL (1.4-4.0); Lymphocytes % 16.5 % (21.2-54.2); Mean Corpuscular HGB Conc 33.2 GM/DL (32-36); Mean Corpuscular Hemoglobin 29 PG (27-34); Mean Corpuscular Volume 86.5 FL (87-102); Mean Platelet Volume 9.3 FL (9.6-12.0); Monocytes # 0.5 10*3/uL (0.11-0.8); Monocytes % 8.5 % (1.7-12.7); Neutrophils # 3.9 10*3/uL (1.4-7.4); Neutrophils % 70.2 % (38.7-73.9); Platelet Count 198 T/CUMM (130-400); Red Blood Count 3.86 MC/CUMM (3.8-5.5); Red Cell Distribution Width 16.5 % (9.3-17.3); White Blood Count 5.6 T/CUMM (4-12)
[2016-10-05] MEDS: SODIUM CHLORIDE 0.9% 1,000 ML IV SCH ×2 (05:52→20:53)
[2016-10-05 06:23] LABS: Alanine Aminotransferase 13 U/L (16-61); Albumin 2.2 G/DL (3.4-5.0); Alkaline Phosphatase 60 U/L (45-117); Aspartate Amino Transferase 14 U/L (0-37); Bilirubin,Total < 0.39 MG/DL (0.2-1.0); Blood Urea Nitrogen 27 MG/DL (7-18); Calcium 8.5 MG/DL (8.5-10.1); Glucose 117 MG/DL (74-106); Osmolality,Calculated 284.4 MOS/KG (273-304); Potassium 4.3 MMOL/L (3.5-5.1); Sodium 140 MMOL/L (136-145); Total Protein 5.6 G/DL (6.4-8.3)
[2016-10-05 06:42] LABS: Eosinophils 5 % (0-10); Lymphocytes 15 % (20-55); Metamyelocytes 1 %; Platelet Estimate Normal; Segmented Neutrophils 70 % (50-85); Total Cells Counted 100
[2016-10-05 06:51] LABS: Anisocytosis 1+; Macrocytosis 1+
[2016-10-05] MEDS: SOLIFENACIN 5 MG TABLET PO SCH (10:23)
[2016-10-05] MEDS: TOPIRAMATE 100 MG TABLET PO SCH ×2 (10:23→20:48)
[2016-10-05] MEDS: MEGESTROL 400 MG/10 ML UDCUP PO SCH (10:23)
[2016-10-05] MEDS: MULTIVITAMIN (CENTRUM) TABLET PO SCH (10:23)
[2016-10-05] MEDS: OMEGA 3 ACID ETHYL ESTERS 1 GM CAPSULE PO SCH (10:24)
[2016-10-05] MEDS: PANTOPRAZOLE 40 MG VIAL IV SCH (10:24)
[2016-10-05] MEDS: ASPIRIN EC 81 MG TABLET PO SCH (10:24)
[2016-10-05] MEDS: INSULIN REGULAR 100 UNIT/ML SUBCUT SCH ×4 (10:26→20:47)
--- NOTE | 2016-10-05 11:22 | Oncology Progress Note ---
Assessment and Plan (1) Prostate cancer Status: Acute Assessment and plan: castrate-resistant, metastatic prostate cancer despite ADT. Planning transition to Taxotere with chemo-port placement scheduled for Thursday -- had GPC in pairs and chains in one of two blood cultures drawn 10/02. Suspected to be a contaminant. Blood cultures were not drawn yesterday. Will draw now to ensure no blood stream infection (which is not suspected) prior to port placement tomorrow. Current Visit: No (2) E. coli UTI Status: Acute Assessment and plan: Susceptibilities have returned and is resistant to quinolones. Is susceptible to penicillins, carbapenems, aminoglycosides, and bactrim. -- has just sustained SHARI on CKD. Would not want to use Bactrim at this point -- has history of penicillin allergy. States reaction was in 1963. Took an antibiotic and then had a "wild-man" reaction. States his physician watched him closely to monitor for anaphylaxis. Does not recall the exact symptoms he had, whether it was rash or swelling or hives. Does not recall dyspnea and certainly wasn't hospitalized for anaphylaxis. -- as the above allergy is quite vague, will hold off on any PCN, Cephalosporin , and Carbapenem at present. Could potentially use if allergy if further characterized and felt to be benign -- Aztreonam 1 gram Q12H now, started 10/04/16 Current Visit: Yes (3) CKD (chronic kidney disease) stage 3, GFR 30-59 ml/min Status: Chronic Assessment and plan: Improving on fluids. Cr down to 1.3 today Current Visit: No (4) Metabolic acidosis, normal anion gap (NAG) Status: Acute Assessment and plan: Had diarrhea several days ago. Currently constipated. -- suspect patient may have a type 2 renal tubular acidosis. Has been on fluids for days now, so I suspect urine electrolyte studies would not be very useful -- may need some bicarbonate supplementation. Continue to monitor Current Visit: Yes (5) Diabetes mellitus Status: Chronic Assessment and plan: Patient states he was not taking Actos, but later identified it as a home medication. Is indeed taking Metformin, Amaryl, and Actos and reports last A1c was < 6. -- hypoglycemic this am. Suspected due to SHARI that is improving -- d/c all three PO glycemic agents and will monitor for hyperglycemia and use insulin as needed. 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 Plan to keep hardwick catheter in place for now. Current Visit: No Oncology Subjective PN Interval history: Feeling well this am. States he slept well last night. Appetite has been good. Had successful BM yesterday and this am after Milk of Mag yesterday. No new complaints. Tolerating Aztreonam well. Exam - Constitutional Vitals: Period Temp Pulse Resp BP Sys/Cordero Pulse Ox Last 24 Hr 96.2 F-97.9 F 52-66 16-20 107-146/53-66 95-100 Exam: elderly white male, lying back in bed comfortably - Head Head Exam: Present: normocephalic, atraumatic - Eye Eye Exam: Present: other (pink palpebral conjunctiva). Absent: scleral icterus - ENT ENT exam: Present: normal oropharynx - Respiratory Respiratory exam: Present: CTAB. Absent: accessory muscle use - Cardiovascular Cardiovascular exam: Present: RRR. Absent: JVD - GI/Abdominal GI/Abdominal exam: Present: soft. Absent: ascites, distended, tenderness Results - Labs CBC & BMP: 10/05/16 05:28 10/05/16 05:28
[2016-10-05 13:38] LABS: INR 1.1; PT Patient Result 11.2 SECS
--- NOTE | 2016-10-05 18:27 | EKG Report ---
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
[2016-10-05] MEDS: CALCIUM CARBONATE CHEW 500 MG TABLET PO SCH ×2 (19:11→20:48)
[2016-10-06] MEDS: AZTREONAM 1,000 MG in SODIUM CHLORIDE 0.9% 100 ML IV SCH ×2 (04:00→17:00)
[2016-10-06 05:51] LABS: Basophils % 0.5 % (0.0-0.8); Eosinophils # 0.3 10*3/uL (0.0-0.87); Hematocrit 35.5 VOL% (42.0-52.0); Hemoglobin 11.7 GM/DL (14.0-18.0); Immature Granulocytes % 0.3 %; Immature Granulocytes Absolute 0.02 #; Lymphocytes # 1.2 10*3/uL (1.4-4.0); Lymphocytes % 20.2 % (21.2-54.2); Mean Corpuscular Hemoglobin 29 PG (27-34); Mean Corpuscular Volume 87.4 FL (87-102); Mean Platelet Volume 9.4 FL (9.6-12.0); Monocytes # 0.8 10*3/uL (0.11-0.8); Monocytes % 14.2 % (1.7-12.7); Neutrophils # 3.5 10*3/uL (1.4-7.4); Neutrophils % 59.8 % (38.7-73.9); Platelet Count 202 T/CUMM (130-400); Red Blood Count 4.06 MC/CUMM (3.8-5.5); Red Cell Distribution Width 16.3 % (9.3-17.3); White Blood Count 5.9 T/CUMM (4-12)
[2016-10-06 06:23] LABS: Albumin 2.3 G/DL (3.4-5.0); Bilirubin,Total 0.9 MG/DL (0.2-1.0); Calcium 8.5 MG/DL (8.5-10.1); Osmolality,Calculated 285.3 MOS/KG (273-304); Potassium 4.3 MMOL/L (3.5-5.1); Total Protein 5.9 G/DL (6.4-8.3)
[2016-10-06 06:32] LABS: Band Neutrophils 3 % (0-10); Hypochromasia 1+; Lymphocytes 9 % (20-55); Platelet Estimate Adequate; Segmented Neutrophils 77 % (50-85); Total Cells Counted 100
--- NOTE | 2016-10-06 08:10 | Oncology Progress Note ---
Oncology Subjective PN Interval history: Mr. Fields is a 75 year old male that I have been following for prostate cancer that is currently being treated with hormone therapy. He was admitted through the emergency room with a serious urinary tract infection with weakness and prostration and also with severe right chest wall pain that he tells me is related to a fall on September 30. He may or may not have rib fractures from it. His illness has been complicated by the fact that he has bladder outlet obstruction requiring a right ureteral stent to be placed. According to Villa Mustafa MD, the left ureter is open. He has been treated recently with Xtandi and has a rising PSA although his comprehensive metabolic profile is surprisingly normal. This is probably because he has pelvic involvement by the tumor but does not have extensive bone involvement and may not have any significant bone involvement at all. I was in the process of switching him to Taxotere or possibly Jevtana and discontinuing the Xtandi. I ordered 2 units of packed red cells to be transfused on September 30. He has become progressively weaker in spite of the blood transfusion.. The patient had been receiving Xtandi as part of the treatment for his prostate cancer but I have held it. I have discussed patient's case with Dr. Villa Mustafa. The patient has progression of his disease in his pelvis and very little evidence of bony metastases. Dr. Mustafa feels that the patient's prognosis is extremely poor. I have reviewed Dr. Mustafa' note. Evidently the patient is having a great deal of difficulty understanding how to deal with his catheter and the sphincter , according to Dr. Mustafa. On September 30, the patient came for blood. He was walking down the cheema on the first floor when he fell. He apparently refused to go to the emergency room at that time. He came in and received the 2 units of packed red cells. According to the emergency room physician, the patient sustained 2 rib fractures on the right side but rib detail x-rays failed to confirm rib fractures. He is scheduled for Mediport placement today. He appears to be confused but I think he is simply very hard of hearing. He continues to have pain in the right side of his chest but no fractures have been documented. Lungs: Slightly coarse breath sounds without rubs, rales or rhonchi. Cardiovascular: His heart rhythm is regular without murmur, gallop or rub. There is no jugular venous distention, clubbing or cyanosis. Abdomen: No masses or organomegaly. Neurologic: He is exceedingly hard of hearing otherwise cranial nerves II through XII are intact. Musculoskeletal: He has generalized muscle weakness and loss of muscle tone. Exam - Constitutional Vitals: Period Temp Pulse Resp BP Sys/Cordero Pulse Ox Last 24 Hr 97.4 F-98.5 F 61-110 16-20 111-167/61-92 95-100 Results - Labs CBC & BMP: 10/06/16 04:27 10/06/16 04:27
[2016-10-06] MEDS: INSULIN REGULAR 100 UNIT/ML SUBCUT SCH ×4 (09:31→20:37)
[2016-10-06] MEDS: TOPIRAMATE 100 MG TABLET PO SCH ×2 (09:32→20:36)
[2016-10-06] MEDS: OMEGA 3 ACID ETHYL ESTERS 1 GM CAPSULE PO SCH (09:32)
[2016-10-06] MEDS: MEGESTROL 400 MG/10 ML UDCUP PO SCH (09:32)
[2016-10-06] MEDS: MULTIVITAMIN (CENTRUM) TABLET PO SCH (09:32)
[2016-10-06] MEDS: SOLIFENACIN 5 MG TABLET PO SCH (09:32)
[2016-10-06] MEDS: ASPIRIN EC 81 MG TABLET PO SCH (09:32)
[2016-10-06] MEDS: PANTOPRAZOLE 40 MG VIAL IV SCH (09:33)
--- NOTE | 2016-10-06 09:50 | Urology Progress Note ---
Assessment and Plan (1) Prostate CA Status: Acute Assessment and plan: Planning to leave the Segundo until Thursday remove it. We will keep the sphincter deactivated for now. I will order an ultrasound to evaluate his hydronephrosis. I will be back on Thursday Current Visit: No (2) Hydronephrosis of right kidney Status: Chronic Current Visit: No Urology - PN: Subj Interval history: Patient is feeling stronger. His creatinine is down to 1.4. He is for Mediport today. We will remove the catheter after he has his procedure. He will have to deal with the incontinence. The sphincter is deactivated. Exam - Constitutional Vitals: Period Temp Pulse Resp BP Sys/Cordero Pulse Ox Last 24 Hr 97.4 F-98.5 F 61-110 16-20 111-167/61-92 95-100 Results - Labs CBC & BMP: 10/06/16 04:27 10/06/16 04:27
[2016-10-06] MEDS ORDERED: HEPARIN 5,000 UNIT/1 ML VIAL ONE (10:09)
[2016-10-06] MEDS ORDERED: BUPIVACAINE 0.25% /EPI 10 ML VIAL ONE ×2 (10:10)
[2016-10-06] MEDS ORDERED: LIDOCAINE 1%/EPI INJ 20 ML VIAL ONE (10:10)
[2016-10-06] MEDS: SODIUM CHLORIDE 0.9% 1,000 ML IV SCH (10:12)
[2016-10-06] MEDS ORDERED: fentaNYL 100 MCG/2 ML VIAL ONE (11:48)
--- NOTE | 2016-10-06 11:57 | Operative Note ---
Date of procedure: 10/06/16 Pre-op diagnosis: Metastatic prostate cancer Post-op diagnosis: same Procedure: Procedure performed: Placement of right subclavian Mediport using cutdown technique. #2 supervision and interpretation fluoroscopy Procedure in detail: After informed consent was obtained, patient was taken operating suite lies upon the operating table. After monitored anesthesia initiated bilateral neck and chest were prepped and draped in usual sterile fashion. After procedural pause local anesthetic infiltrated in skin and subcutaneous tissue in the right chest wall. Incision was made and dissection carried down through skin and soft tissue. Fat pad in the deltopectoral groove was dissected and a suitable branch coming off the subclavian vein was identified for cannulation. Distal portion of the vein branch was ligated with 3-0 Vicryl. Venotomy performed and the catheter inserted under direct visualization and guided medially without any resistance. Fluoroscopy demonstrated the catheter tip to be in superior vena cava. Catheter was secured to the proximal portion of volume with 3-0 Vicryl. The catheter was cut to the appropriate size and attached to the port device. The port was then placed in subcutaneous pocket created inferior to the incision. It was secured in place with 3-0 Vicryl. The wound was thoroughly irrigated and suctioned. There was excellent hemostasis. The deep dermal layer was closed with 3-0 Vicryl. 4-0 Monocryl used to close the skin. Port was accessed with butterfly Champion needle. It withdrew and flushed easily. Sterile dressings applied. The patient was taken recovery room in stable condition. All lap and needle counts correct at the end of the case. Anesthesia: MAC, local Surgeon / Physician: Yandel Vale Estimated blood loss: other (Less than 10 cc) Specimens: none sent Condition: stable Disposition: PACU Results - Labs CBC & BMP: 10/06/16 04:27 10/06/16 04:27 Discharge Plan - Discharge Medications New HYDROcodone/ACETAMIN 5-325 [[place] 5-325] 1 tablet PO Q4H PRN #30 tablet PRN Reason: Pain Moderate (4-7) No Action Leuprolide IM (4 Month) [Lupron Depot (4 Month)] 30 mg IM Q120D Megestrol Acetate 20 - 40 mg PO QAM Topiramate 100 mg PO BID Multivitamin [Multivitamins] 1 each PO QAM Diphenoxylate/Atrop 2.5-0.025 [Lomotil Tab] 1 tablet PO Q6H PRN PRN Reason: Diarrhea Metformin HCl 1,000 mg PO BID Glimepiride 4 mg PO QAM Pioglitazone [Actos] 15 mg PO QAM Aspirin [Ecotrin] 81 mg PO QAM Solifenacin [Vesicare] 5 mg PO QAM Omeprazole 20 mg PO DAILY PRN PRN Reason: Heartburn [place]-3 Fatty Acids [Fish Oil] 1 tablet PO QAM Calcium Carbonate [Calcium] 1 tablet PO QPM Aspirin/Acetaminophen/Caffeine [Excedrin Migraine Caplet] 1 tablet PO DAILY PRN PRN Reason: Migraine Headache - Follow Up or Referral - Forms/Instructions
--- NOTE | 2016-10-06 15:40 | Event Note ---
Postop check patient is status post Mediport placement this morning by Dr. Vale. Patient is awake and alert and just finished his lunch. He has no complaints of pain. His Mediport is intact and dressing is clean and dry with no signs of bleeding. Dr. Vale will sign off in a 2 week follow-up appointment has been made. A prescription for Letcher was placed in his chart. Discussed with Dr. Vale.
[2016-10-06] MEDS: CALCIUM CARBONATE CHEW 500 MG TABLET PO SCH (20:36)
[2016-10-07] MEDS: AZTREONAM 1,000 MG in SODIUM CHLORIDE 0.9% 100 ML IV SCH (03:50)
[2016-10-07] MEDS: SODIUM CHLORIDE 0.9% 1,000 ML IV SCH ×2 (04:04→12:36)
[2016-10-07 06:25] LABS: Basophils % 0.3 % (0.0-0.8); Eosinophils # 0.2 10*3/uL (0.0-0.87); Eosinophils % 3.9 % (0.00-10.9); Hematocrit 35.1 VOL% (42.0-52.0); Hemoglobin 11.5 GM/DL (14.0-18.0); Immature Granulocytes % 0.6 %; Immature Granulocytes Absolute 0.04 #; Lymphocytes # 1.5 10*3/uL (1.4-4.0); Lymphocytes % 23.5 % (21.2-54.2); Mean Corpuscular HGB Conc 32.8 GM/DL (32-36); Mean Corpuscular Hemoglobin 29 PG (27-34); Mean Corpuscular Volume 87.3 FL (87-102); Mean Platelet Volume 9.5 FL (9.6-12.0); Monocytes # 0.9 10*3/uL (0.11-0.8); Neutrophils # 3.6 10*3/uL (1.4-7.4); Neutrophils % 57.7 % (38.7-73.9); Platelet Count 197 T/CUMM (130-400); Red Blood Count 4.02 MC/CUMM (3.8-5.5); Red Cell Distribution Width 16.3 % (9.3-17.3); White Blood Count 6.2 T/CUMM (4-12)
[2016-10-07 06:55] LABS: Eosinophils 4 % (0-10); Lymphocytes 20 % (20-55); Segmented Neutrophils 66 % (50-85); Total Cells Counted 100
[2016-10-07 06:56] LABS: Burr Cells Slight; Hypochromasia Slight; Platelet Estimate Adequate
[2016-10-07 07:05] LABS: Albumin 2.2 G/DL (3.4-5.0); Bilirubin,Total 0.7 MG/DL (0.2-1.0); Calcium 8.5 MG/DL (8.5-10.1); Osmolality,Calculated 283.3 MOS/KG (273-304); Potassium 4.5 MMOL/L (3.5-5.1); Total Protein 5.8 G/DL (6.4-8.3)
--- NOTE | 2016-10-07 07:28 | Oncology Progress Note ---
Oncology Subjective PN Interval history: Mr. Fields now has a Mediport catheter placed. He has hormone resistant prostate cancer that is primarily involving soft tissues of the pelvis and producing renal failure. The renal failure was complicated by the fact that he was not following Dr. Mustafa' directions on how to manage an artificial sphincter and this resulted in renal failure. His renal function improved when this was corrected. He is on antibiotics for management of renal infection. We are about to begin chemotherapy on him and will start with a reduced dose of Taxotere. Taxotere is the next chemotherapy drug that needs to be used before we can consider other treatments for his prostate cancer. He has progressed on hormone therapy as well as on Xtandi. Lab work today includes a white cell count of 6200 with a hemoglobin of 11.5 and a platelet count of 197,000. His comprehensive metabolic profile today includes a normal serum creatinine of 1.3. He has a low serum albumin of 2.2 with a serum calcium of 8.5. The Taxotere dose today will be 60 mg and I will plan on giving it weekly in order to reduce toxicity and see how he tolerates it. He has been on Azactam for his renal infection. I am discontinuing it today and starting him on Levaquin. In addition, I am stopping IV fluids at bedtime tonight in anticipation of discharge tomorrow if he does well. On physical examination he is chronically ill but he appears to be fully oriented and alert. He is very hard of hearing. His Mediport catheter is healing well. Exam - Constitutional Vitals: Period Temp Pulse Resp BP Sys/Cordero Pulse Ox Last 24 Hr 97.2 F-99.4 F 62-78 16-24 108-139/52-68 93-100 Results - Labs CBC & BMP: 10/07/16 04:37 10/07/16 04:37 Specialty Discharge - Follow Up or Referrals Follow up with: Yandel Vale MD [Physician] - 10/20/16 10:45 am
[2016-10-07] MEDS ORDERED: DEXAMETHASONE INJ 20 MG in SODIUM CHLORIDE 0.9% 50 ML IV ONE (07:33)
[2016-10-07] MEDS ORDERED: DOCETAXEL IV ONE ×2 (07:33→10:00)
[2016-10-07] MEDS ORDERED: SODIUM CHLORIDE 0.9% IV ONE ×2 (07:33→10:00)
[2016-10-07] MEDS: INSULIN REGULAR 100 UNIT/ML SUBCUT SCH ×4 (08:08→21:13)
[2016-10-07] MEDS: TOPIRAMATE 100 MG TABLET PO SCH ×2 (09:24→21:12)
[2016-10-07] MEDS: SOLIFENACIN 5 MG TABLET PO SCH (09:24)
[2016-10-07] MEDS: LEVOFLOXACIN 750 MG TABLET PO SCH (09:24)
[2016-10-07] MEDS: MEGESTROL 400 MG/10 ML UDCUP PO SCH (09:24)
[2016-10-07] MEDS: MULTIVITAMIN (CENTRUM) TABLET PO SCH (09:25)
[2016-10-07] MEDS: PANTOPRAZOLE 40 MG VIAL IV SCH (09:25)
[2016-10-07] MEDS: GRANISETRON 1 MG/1 ML VIAL IV SCH (09:25)
[2016-10-07] MEDS: ASPIRIN EC 81 MG TABLET PO SCH (09:25)
[2016-10-07] MEDS: OMEGA 3 ACID ETHYL ESTERS 1 GM CAPSULE PO SCH (09:25)
--- NOTE | 2016-10-07 17:04 | Urology Progress Note ---
Assessment and Plan (1) Prostate CA Status: Acute Assessment and plan: Planning to leave the [place] until Thursday remove it. We will keep the sphincter deactivated for now. I will order an ultrasound to evaluate his hydronephrosis. I will be back on Thursday Current Visit: No (2) Hydronephrosis of right kidney Status: Chronic Current Visit: No Urology - PN: Subj Interval history: Patient is feeling better. The sphincter has been deactivated. He is incontinent but I am going to leave it this way. His creatinine is normal at 1.3. He reassures me that he believes that he knows how to operate this device. I am going to give him more time to hopefully gain strength. I understand he is going to be undergoing chemotherapy. I will see him in 10 days 2 weeks and we will see if he is able to start manipulating this. Exam - Constitutional Vitals: Period Temp Pulse Resp BP Sys/Cordero Pulse Ox Last 24 Hr 97.3 F-99.4 F 59-76 18-24 119-150/56-67 94-98 Results - Labs CBC & BMP: 10/07/16 04:37 10/07/16 04:37 Specialty Discharge - Follow Up or Referrals Follow up with: Yandel Vale MD [Physician] - 10/20/16 10:45 am
[2016-10-07] MEDS: CALCIUM CARBONATE CHEW 500 MG TABLET PO SCH (21:13)
[2016-10-08 05:26] LABS: Basophils % 0.3 % (0.0-0.8); Hematocrit 34.8 VOL% (42.0-52.0); Hemoglobin 11.6 GM/DL (14.0-18.0); Immature Granulocytes % 1.5 %; Immature Granulocytes Absolute 0.09 #; Lymphocytes # 0.8 10*3/uL (1.4-4.0); Lymphocytes % 13.9 % (21.2-54.2); Mean Corpuscular HGB Conc 33.3 GM/DL (32-36); Mean Corpuscular Hemoglobin 29 PG (27-34); Mean Corpuscular Volume 85.7 FL (87-102); Mean Platelet Volume 10.1 FL (9.6-12.0); Monocytes # 0.3 10*3/uL (0.11-0.8); Monocytes % 4.8 % (1.7-12.7); Neutrophils # 4.8 10*3/uL (1.4-7.4); Neutrophils % 79.5 % (38.7-73.9); Platelet Count 226 T/CUMM (130-400); Red Blood Count 4.06 MC/CUMM (3.8-5.5); Red Cell Distribution Width 15.5 % (9.3-17.3)
[2016-10-08 06:04] LABS: Alanine Aminotransferase 17 U/L (16-61); Albumin 2.4 G/DL (3.4-5.0); Alkaline Phosphatase 71 U/L (45-117); Aspartate Amino Transferase 29 U/L (0-37); Bilirubin,Total < 0.39 MG/DL (0.2-1.0); Blood Urea Nitrogen 27 MG/DL (7-18); Calcium 8.6 MG/DL (8.5-10.1); Glucose 131 MG/DL (74-106); Osmolality,Calculated 281.7 MOS/KG (273-304); Potassium 4.3 MMOL/L (3.5-5.1); Sodium 138 MMOL/L (136-145); Total Protein 6.3 G/DL (6.4-8.3)
--- NOTE | 2016-10-08 08:03 | Oncology Progress Note ---
Oncology Subjective PN Interval history: Diagnoses: Metastatic prostate cancer primarily confined to the soft tissues of the lower abdomen and pelvis Administration of chemotherapy and monitoring for toxicity. Chemotherapy consisted of Taxotere 60 mg which will be given IV weekly. significant urinary tract infection with possible urosepsis refractory prostate cancer that has progressed after hormone therapy, and after Xtandi. We're considering Taxotere. Anemia requiring blood transfusion. Severe generalized weakness and debilitation due to progression of the prostate cancer. Chronic renal failure secondary to prostate cancer complicated by the fact that the patient did not know how to work the sphincter was placed on his ureteral catheter by Dr. Mustafa. Alber. Mr. Fields is a 75-year-old man who presented to the emergency room on the day of this admission and had evidence of a urinary tract infection. He also had evidence of renal failure that was probably at least in part due to the fact that he was not managing his ureteral stent properly. He was seen in consultation by Dr. Villa Mustafa who has repeatedly instructed him on management of his stent and an artificial sphincter that has been placed. In addition to being placed on IV antibiotics, the patient was transfused with packed red cells because of anemia. Also, he received Taxotere 60 mg IV yesterday. My plan is to repeat it weekly. He has progressed on Xtandi as well as on hormone therapy. His prostate cancer is almost exclusively soft tissue involvement. He has very little evidence of bone involvement and I have not treated him with a bisphosphonate because of this. He has tolerated this chemotherapy well so far. My plan is to give it weekly. Lab work today includes:Serum creatinine 1.3. White cell count 6000 with ANC of 4800. Hemoglobin 11.6. Platelet count of 226,000. His condition is much improved today and I am discharging him today to return to my office weekly with a serum creatinine and a CBC and to receive Taxotere. Plan to give Taxotere again in 1 and 2 weeks and check him with an office visit in 3 weeks at which time he will have a PSA, CBC, CMP and LDH. Exam - Constitutional Vitals: Period Temp Pulse Resp BP Sys/Cordero Pulse Ox Last 24 Hr 79.6 F-98.1 F 59-69 18-20 111-150/56-67 95-97 Results - Labs CBC & BMP: 10/08/16 04:00 10/08/16 04:51 Specialty Discharge - Follow Up or Referrals Follow up with: Yandel Vale MD [Physician] - 10/20/16 10:45 am Villa Mustafa MD [Physician] - (Appointment to see Dr. Mustafa in 10 days to 2 weeks.)
--- NOTE | 2016-10-08 08:33 | Discharge Summary ---
Hospital Course - Hospital Course Hospital Course: Diagnoses: Metastatic prostate cancer primarily confined to the soft tissues of the lower abdomen and pelvis Administration of chemotherapy and monitoring for toxicity. Chemotherapy consisted of Taxotere 60 mg which will be given IV weekly. significant urinary tract infection with possible urosepsis refractory prostate cancer that has progressed after hormone therapy, and after Xtandi. We're considering Taxotere. Anemia requiring blood transfusion. Severe generalized weakness and debilitation due to progression of the prostate cancer. Chronic renal failure secondary to prostate cancer complicated by the fact that the patient did not know how to work the sphincter was placed on his ureteral catheter by Dr. Mustafa. Alber. Mr. Fields is a 75-year-old man who presented to the emergency room on the day of this admission and had evidence of a urinary tract infection. He also had evidence of renal failure that was probably at least in part due to the fact that he was not managing his ureteral stent properly. He was seen in consultation by Dr. Villa Mustafa who has repeatedly instructed him on management of his stent and an artificial sphincter that has been placed. In addition to being placed on IV antibiotics, the patient was transfused with packed red cells because of anemia. Also, he received Taxotere 60 mg IV yesterday. My plan is to repeat it weekly. He has progressed on Xtandi as well as on hormone therapy. His prostate cancer is almost exclusively soft tissue involvement. He has very little evidence of bone involvement and I have not treated him with a bisphosphonate because of this. He has tolerated this chemotherapy well so far. My plan is to give it weekly. Lab work today includes:Serum creatinine 1.3. White cell count 6000 with ANC of 4800. Hemoglobin 11.6. Platelet count of 226,000. His condition is much improved today and I am discharging him today to return to my office weekly with a serum creatinine and a CBC and to receive Taxotere. Plan to give Taxotere again in 1 and 2 weeks and check him with an office visit in 3 weeks at which time he will have a PSA, CBC, CMP and LDH. The patient's urine culture grew E. coli. I think he has been treated long enough with antibiotics. 3 out of 4 blood cultures were negative, suggesting that the single positive blood culture was a contaminant. Specialty Discharge - Follow Up or Referrals Follow up with: Yandel Mcnair MD [Physician] - 10/20/16 10:45 am Villa Mustafa MD [Physician] - (Appointment to see Dr. Mustafa in 10 days to 2 weeks.) Discharge Plan - Discharge Data Disposition: Disch To Home/Self Care Condition at Discharge: Guarded Discharge Diet: advance to your usual diet Activity: resume usual activities as tolerated Hygiene: no restrictions Weight Bearing at Discharge: weight bear as tolerated Driving: other Contact your physician if you experience:: fever over 101, Difficulty voiding, Redness or swelling, Nausea/Vomiting, Shortness of breath, Bleeding, pain uncontrolled by pain medications - Discharge Medications New HYDROcodone/ACETAMIN 5-325 [[place] 5-325] 1 tablet PO Q4H PRN #30 tablet PRN Reason: Pain Moderate (4-7) HYDROcodone/ACETAMIN 5-325 [[place] 5-325] 1 tablet PO Q6H PRN tablet PRN Reason: Pain Continue Leuprolide IM (4 Month) [Lupron Depot (4 Month)] 30 mg IM Q120D Megestrol Acetate 20 - 40 mg PO QAM Topiramate 100 mg PO BID Multivitamin [Multivitamins] 1 each PO QAM Diphenoxylate/Atrop 2.5-0.025 [Lomotil Tab] 1 tablet PO Q6H PRN PRN Reason: Diarrhea Metformin HCl 1,000 mg PO BID Glimepiride 4 mg PO QAM Aspirin [Ecotrin] 81 mg PO QAM Solifenacin [Vesicare] 5 mg PO QAM Omeprazole 20 mg PO DAILY PRN PRN Reason: Heartburn Calcium Carbonate [Calcium] 1 tablet PO QPM Aspirin/Acetaminophen/Caffeine [Excedrin Migraine Caplet] 1 tablet PO DAILY PRN PRN Reason: Migraine Headache Discontinued Pioglitazone [Actos] 15 mg PO QAM [place]-3 Fatty Acids [Fish Oil] 1 tablet PO QAM - Follow Up or Referral Follow Up: Yandel Mcnair MD [Physician] - 10/20/16 10:45 am Villa Mustafa MD [Physician] - (Appointment to see Dr. Mustafa in 10 days to 2 weeks.) - Forms/Instructions Additional Discharge Instructions: Discharge today. Schedule chemotherapy at my office weekly with Taxotere 60 mg IV each week. Check a CBC and serum creatinine weekly before chemotherapy. Administer Kytril 1 mg in dexamethasone 10 mg IV weekly before Taxotere. Length of time required for discharge was greater than 30 minutes. Return to see me in 3 weeks with CBC, CMP, LDH and PSA. Exam - Constitutional Vitals: Period Temp Pulse Resp BP Sys/Cordero Pulse Ox Last 24 Hr 79.6 F-98.1 F 59-69 18-20 111-150/56-67 95-97 Discharge Results Procedures and tests throughout hospitalization: Pending Orders 10/05/16 11:19 Blood Culture Stat 10/09/16 04:00 Comp Blood Count Auto Diff IN AM Comprehensive Metabolic Panel IN AM Labs on day of discharge: Labs from last 24 hours 10/08/16 10/08/16 10/07/16 04:51 04:00 19:49 WBC 6.0 RBC 4.06 Hgb 11.6 L Hct 34.8 L MCV 85.7 L MCH 29 MCHC 33.3 RDW 15.5 Plt Count 226 MPV 10.1 Neut % (Auto) 79.5 H Lymph % (Auto) 13.9 L [place] % (Auto) 4.8 Eos % (Auto) 0.0 Baso % (Auto) 0.3 Neut # (Auto) 4.8 Lymph # (Auto) 0.8 L [place] # (Auto) 0.3 Eos # (Auto) 0.0 Baso # (Auto) 0.0 Immature Gran % 1.5 Nucleated RBC % 0.0 Immature Gran # 0.09 Nucleated RBCs # 0.00 Sodium 138 Potassium 4.3 Chloride 111 H Carbon Dioxide 17 L Anion Gap 14.3 BUN 27 H Creatinine 1.30 GFR Calculation 55 BUN/Creatinine Ratio 20.00 Glucose 131 H POC Glucose 307 H Calculated Osmolality 281.7 Calcium 8.6 Total Bilirubin < 0.39 AST 29 ALT 17 Alkaline Phosphatase 71 Lactate Dehydrogenase 222 Total Protein 6.3 L Albumin 2.4 L Globulin 3.9 H Albumin/Globulin Ratio 0.6 L 10/07/16 10/07/16 15:57 11:48 WBC RBC Hgb Hct MCV MCH MCHC RDW Plt Count MPV Neut % (Auto) Lymph % (Auto) [place] % (Auto) Eos % (Auto) Baso % (Auto) Neut # (Auto) Lymph # (Auto) [place] # (Auto) Eos # (Auto) Baso # (Auto) Immature Gran % Nucleated RBC % Immature Gran # Nucleated RBCs # Sodium Potassium Chloride Carbon Dioxide Anion Gap BUN Creatinine GFR Calculation BUN/Creatinine Ratio Glucose POC Glucose 202 H 209 H Calculated Osmolality Calcium Total Bilirubin AST ALT Alkaline Phosphatase Lactate Dehydrogenase Total Protein Albumin Globulin Albumin/Globulin Ratio Preliminary micro results at discharge 10/05/16 11:19 Blood Culture - Preliminary Blood No growth at 1 day 10/05/16 11:19 Blood Culture - Preliminary Blood No growth at 1 day DS: Provider Date of admission: 10/02/16 21:49 Primary care physician: Mario Alberto Moreno, Attending physician on admission: Trae Adan MD Consults: 10/02/16 23:35 Consult to Case Mgmt/Social Srvs [CONS] Routine Reason for Case Mgmt/Social Srvs: Rehab Hospice Referral Consult to Physician [CONS] Routine Comment: Continuity of care Consulting Provider: Villa Mustafa Consulting Provider Notified: Yes When should Consulting Provider be notified: In am Consult to Specialist Group: Urology When should Consulting Provider be notified: Now Person Notified: CHANDNI Date Notified: 10/03/16 Time Notified: 09:18 10/03/16 00:23 Consult to Dietitian [CONS] Routine Reason for Dietitian: Dietary Consult 10/03/16 09:44 Consult to Physician [CONS] Routine Comment: needs mediport. Consulting Provider: Yandel Mcnair Consulting Provider Notified: Yes When should Consulting Provider be notified: Now Consult to Specialist Group: Surgery When should Consulting Provider be notified: Now Person Notified: DR MCNAIR NOTIFIED Date Notified: 10/03/16 Time Notified: 09:54 Consult Notification Comment: 10/03/16 12:00 Consult to Anesthesiology [CONS] Routine Consulting Provider: Reason for Anesthesiology: Pre-op Clearance 10/07/16 11:45 Consult to Case Mgmt/Social Srvs [CONS] Routine Reason for Case Mgmt/Social Srvs: Home Health Discharging clinician: Trae Adan MD
[2016-10-08 08:37] VITALS: BP 139/61
[2016-10-08] MEDS ORDERED: HEPARIN LOCK FLUSH 500 UNIT/5 ML SYRINGE IV ONE (09:24)
[2016-10-08] MEDS ORDERED: HEPARIN LOCK FLUSH 500 UNIT/5 ML SYRINGE IV PRN (09:27)
[2016-10-08] MEDS: SOLIFENACIN 5 MG TABLET PO SCH (09:28)
[2016-10-08] MEDS: OMEGA 3 ACID ETHYL ESTERS 1 GM CAPSULE PO SCH (09:28)
[2016-10-08] MEDS: MEGESTROL 400 MG/10 ML UDCUP PO SCH (09:28)
[2016-10-08] MEDS: LEVOFLOXACIN 750 MG TABLET PO SCH (09:28)
[2016-10-08] MEDS: TOPIRAMATE 100 MG TABLET PO SCH (09:28)
[2016-10-08] MEDS: ASPIRIN EC 81 MG TABLET PO SCH (09:28)
[2016-10-08] MEDS: MULTIVITAMIN (CENTRUM) TABLET PO SCH (09:28)
[2016-10-08] MEDS: PANTOPRAZOLE 40 MG VIAL IV SCH (09:29)
[2016-10-08] MEDS: GRANISETRON 1 MG/1 ML VIAL IV SCH (09:31)
[2016-10-08] MEDS: INSULIN REGULAR 100 UNIT/ML SUBCUT SCH (09:31)
[2016-12-20] MEDS ORDERED: LEUPROLIDE 30 MG IM SCH (09:00)
== END 2016-10-08 11:25 | disposition home health service (06) | DRG 690 ==
LOC: N.ED 19:06 → N.EDINP 21:49 → N.4E 23:05
PROVIDERS: ADMIT Specialist; ATTEND Specialist